=== PATIENT | male | born 1935 | race Caucasian/White ===

== ENCOUNTER 2022-01-16 16:14 | Inpatient (IN) | payer MEDICARE, SELFPAY ==
[2022-01-16] VITALS (48 sets, daily range): BP systolic 130–178; BP diastolic 59–108; PULSE 70–100; RESP 17–30; TEMP 36.4–36.6; O2SAT 83–100
--- NOTE | 2022-01-16 16:30 | RT.EKG_ITS ---
APPROVED REPORT Exam: Resting ECG Reason for Exam: weakness Patient Location: E HR:80 bpm ECG Measurements Heart Rate 80 AXIS OK 264 P 43 QRSd 152 QRS 66 QT 456 T 5 QTc 526 Conclusion Sinus rhythm...normal P axis, V-rate 60- 99 Paired ventricular premature complexes...sequence of 2 V complexes Prolonged OK interval...OK >220, V-rate 50- 90 Right bundle branch block...QRSd>120, terminal axis(90,270)
--- NOTE | 2022-01-16 16:30 | DI.CT_ITS ---
Exam(s) CT HEAD CERVICAL SPINE WO EXAM: CT HEAD CERVICAL SPINE WO CLINICAL HISTORY: fall, [place], anticoag. TECHNIQUE: Imaging Protocol: Axial computed tomography images with coronal and sagittal reformatted images were created and reviewed COMPARISON: No exams were available for comparison FINDINGS: CT Head: Ventricles and Extra axial spaces: There is cerebral atrophy more prominent in the frontal and tempor al lobes. There is mild enlargement of the ventricles. Hemorrhage: None. Cerebral parenchyma: No acute territorial infarct is present. There are areas of decreased attenuati on in the white matter consistent with small vessel ischemic disease. Midline shift: None. Brainstem/Cerebellum: Normal. Calvarium: Normal. Visualized Paranasal sinuses/Mastoids: Clear. Soft Tissues: Unremarkable. CT Cervical Spine: Bones: No acute fracture or subluxation. Cervical spondylosis. There does appear to be a chronic el earing depression of the superior endplate of T1. If there is continued clinical concern an MRI may be obtained. Soft Tissues: There is an markedly enlarged right lobe of the thyroid gland which displaces the trach ea to the left. It is incompletely imaged on this examination but measures at least 7.5 x 5 x 7 cm. Lung Apices: Clear. IMPRESSION: 1. No acute intracranial process. 2. No definite acute fracture or subluxation in the cervical spine. 3. Marked enlargement of the right lobe of the thyroid gland. Nonemergent ultrasound should be consi dered for further evaluation. 4. Mild depression of the superior endplate of T1 which appears chronic. If symptomatic, MRI can be performed for further characterization. RADIATION DOSE DELIVERED: 1,558.77mGy.cm Total DLP DATA REPOSITORY: All CT scans at this facility are submitted to the National Radiology Data Registry (NRDR) Dose Index Registry (DIR) with the [employer] (ACR). RADIATION OPTIMIZATION: All CT scans at this facility use at least one of these dose optimization te chniques: automated exposure control; mA and/or kV adjustment per patient size (includes targeted exa ms where dose is matched to clinical indication); or iterative reconstruction.
[2022-01-16 16:48] LABS: Abs Immature Grans 0.04 10^3/uL (0.0-0.06); Absolute Basophil Count 0.03 10^3/uL (0.0-0.2); Absolute Eosinophil Count 0.28 10^3/uL (0.0-0.7); Absolute Lymphocyte Count 0.98 10^3/uL (1.2-3.4); Absolute Monocyte Count 0.46 10^3/uL (0.1-0.8); Absolute Neutrophil Count 3.71 10^3/uL (1.2-6.7); Basophils % 0.5; Eosinophils % 5.1; HCT 35.3 % (40.0-50.0); HGB 10.6 g/dL (13.5-17.5); Immature Grans % 0.7; Lymphocytes % 17.8; MCH 29.5 pg (27.0-33.0); MCV 98 fL (80-95); MPV 11.9 fL (8.0-11.0); Monocytes % 8.4; Neutrophils % 67.5; Platelet Count 128 10^3/uL (130-400); RBC 3.59 10^6/uL (4.36-5.78); RDW 14.3 % (11.8-14.1); RDW-SD 51.8 fL
--- NOTE | 2022-01-16 17:06 | DI.CT_ITS ---
Exam(s) CT CHEST/ABD/PEL W CT THORACIC LUMBAR SPINE REC EXAM: CT CHEST/ABD/PEL W and CT thoracic and lumbar spine recons CLINICAL HISTORY: fall, right flank and ruq pain, right thoracic dieter TECHNIQUE: Imaging Protocol: Axial computed tomography images with coronal and sagittal reformatted images were created and reviewed CONTRAST MATERIAL: Intravenous: Omnipaque 350 contrast volume:100 mL Oral: No COMPARISON: CT CT THORACIC LUMBAR SPINE REC from 01/16/2022 FINDINGS: The examination is limited due to patient motion artifact. CHEST: Tracheobronchial tree: Patent where visualized. Pulmonary parenchyma: No consolidation or dominant measurable mass. Emphysematous changes are seen in the lungs. Dependent atelectatic changes are seen in the lungs. Visualized thyroid gland: There is a large heterogeneous mass in the right lobe of the thyroid gland measuring at least 7.1 cm transverse by 5.5 cm AP by 5 cm craniocaudad. The most superior aspect of the mass is not included on this examination. It displaces the trachea and esophagus to the left. Mediastinum and Cyn: No dominant adenopathy or fluid collection. The esophagus is unremarkable. Pleura: No effusion or pneumothorax. Heart: Cardiomegaly. Mild coronary artery calcification. No pericardial effusion. Pulmonary arteries: The pulmonary arteries are not adequately opacified for evaluation of pulmonary e mboli. Aorta: Thoracic aorta non-dilated. Atherosclerosis is present. Lymph nodes: Within normal limits. Soft tissues: Gynecomastia is present. Bones:There are acute mildly displaced fractures in the anterior aspect of the right 3rd and 4th ribs . There are subacute healing T9 through T12 right rib fractures. There appears to be a lucency in t he left 5th rib laterally. There is an old healed sternal fracture. CT thoracic spine recons: There are chronic appearing compression deformities of T7, T8 and T11. Age -appropriate degenerative changes are seen throughout the thoracic spine. ABDOMEN: Liver: Normal density. No measurable mass. Portal, Superior Mesenteric, and Splenic Veins: Unremarkable. Gallbladder and Biliary Tract: Status post cholecystectomy. No significant biliary ductal dilatation . Pancreas: Fatty atrophy of the pancreas. Spleen: Normal. Adrenals: No masses seen. Kidneys: Normal size, contour and axis. No radiodense stones or obstructive uropathy. Multiple bilate ral renal cysts. No follow-up is recommended. Abdominal Aorta: Abdominal portion non-dilated. Atherosclerosis is present. Bowel: No obstruction or bowel wall thickening. No evidence of appendicitis. There is diverticulosis seen in the colon, but no evidence of acute diverticulitis. Peritoneal Cavity: No ascites, collection or mesenteric inflammatory response. No free air. Lymph Nodes: There is enlarged 2.6 x 2.3 cm left periaortic cystic structure. Bones: There are bilateral total hip replacements. There are old healed right superior and inferior pubic rami fractures. There is an old healed right iliac fracture. Soft Tissues: Unremarkable. Lumbar spine CT recons: There is an old healed compression fracture of L1. The bones are osteopenic. Degenerative changes are seen in the lumbar spine appropriate for the patient's age. No acute frac ture or subluxation is seen in the lumbar spine. PELVIS: Bladder: The urinary bladder is incompletely visualized due to artifact from the patient's orthopedic hardware. Calcifications are seen in the dependent portion of the bladder suggesting bladder stones . Reproductive Organs: The prostate gland is enlarged. Lymph Nodes: Within normal limits. Bones: Within normal limits. IMPRESSION: 1. There are acute fractures involving the anterior aspects of the right 3rd and 4th ribs. 2. Subacute and chronic fractures involving right ribs, sternum and vertebral bodies. 3. No definite acute fracture involving the thoracic spine. If there is concern for acute exacerbati on of these fractures, an MRI may be useful for further characterization. 4. No acute abdominal or pelvic organ injury. 5. Chronic fractures involving the sacrum and pelvis. 6. Subacute to chronic L1 compression fracture deformity. If there is concern, an MRI may be useful for further characterization. 7. Complex right thyroid mass. Nonemergent thyroid ultrasound may be obtained for further evaluation. 8. 2.6 x 2.3 cm cystic structure in the left periaortic region. This is nonspecific. MRI may be usefu l for further evaluation. 9. There are unexpected findings on this examination. Unexpected findings RADIATION DOSE DELIVERED: 1381.25 mGy.cm Total DLP DATA REPOSITORY: All CT scans at this facility are submitted to the National Radiology Data Registry (NRDR) Dose Index Registry (DIR) with the [employer] (ACR). RADIATION OPTIMIZATION: All CT scans at this facility use at least one of these dose optimization te chniques: automated exposure control; mA and/or kV adjustment per patient size (includes targeted exa ms where dose is matched to clinical indication); or iterative reconstruction.
[2022-01-16 17:10] LABS: ALT 14 U/L (16-63); AST 11 U/L (15-37); Alkaline Phosphatase 77 U/L (46-116); Anion Gap 5.2 mmol/L (3-11); BUN 23 mg/dL (7-18); Bilirubin, Total 0.9 mg/dL (0.2-1.0); CO2 31.8 mmol/L (21.0-32.0); Calcium 8.9 mg/dL (8.5-10.1); Chloride 107 mmol/L (98-107); Glucose 102 mg/dL (74-106); Magnesium 1.7 mg/dL (1.8-2.4); Potassium 4.6 mmol/L (3.5-5.1); Sodium 144 mmol/L (136-145); Total Protein 7.1 g/dL (6.4-8.2)
--- NOTE | 2022-01-16 17:46 | DI.VRAD_ITS ---
PROCEDURE INFORMATION: Exam: CT Head Without Contrast Exam date and time: 01/16/2022 5:20 PM Age: 86 years old Clinical indication: Injury or trauma; Other: Trauma, fall, headache, eliquis TECHNIQUE: Imaging protocol: Computed tomography of the head without contrast. COMPARISON: No relevant prior studies available. FINDINGS: Brain: No acute intracranial hemorrhage, edema, midline shift, or mass effect. No CT evidence of acute transcortical infarction. There is cerebral and cerebellar volume loss, which is asymmetrically prominent at the frontal and temporal lobes. In addition, there is prominence of the sulci at the level of the sylvian fissures, with crowding of the sulci at the vertex. Cerebral ventricles: Mild ventriculomegaly, which is likely concordant with the patient's degree of volume loss. Narrow callosal angle measuring 66 degrees. Paranasal sinuses: Visualized sinuses are unremarkable. No fluid levels. Mastoid air cells: Visualized mastoid air cells are well aerated. Bones/joints: Unremarkable. No acute fracture. Soft tissues: Unremarkable. IMPRESSION: 1. No acute intracranial abnormality is appreciated. 2. Morphologic changes of the brain are nonspecific, however suggest elements of frontotemporal dementia and normal pressure hydrocephalus. Correlate with clinical and laboratory findings. PROCEDURE INFORMATION: Exam: CT Cervical Spine Without Contrast Exam date and time: 01/16/2022 5:20 PM Age: 86 years old Clinical indication: Injury or trauma; Other: Trauma, fall, headache, eliquis TECHNIQUE: Imaging protocol: Computed tomography of the cervical spine without contrast. COMPARISON: No relevant prior studies available. FINDINGS: Bones/joints: No acute cervical spine fracture. Minimal retrolisthesis of C3 on C4. There is a mild superior endplate deformity at T1 which appears chronic by morphology. No aggressive osseous lesion is identified. Multilevel degenerative changes of the cervical spine, without gross high-grade spinal canal stenosis appreciated. Bony neural foraminal narrowing is greatest at C6-C7. Lungs: There is likely some degree of emphysema at the lung apices. Thyroid: There is massive enlargement of the right thyroid, which is incompletely evaluated but measures at least 7.7 x 5.5 x 7.2 cm. This results in tracheal deviation and esophageal deviation to the left. Vasculature: Scattered vascular calcifications are appreciated. Soft tissues: Unremarkable. IMPRESSION: 1. No acute cervical spine fracture. 2. Degenerative changes of the cervical spine, including retrolisthesis of C3. No gross high-grade spinal canal stenosis is appreciated. 3. Superior endplate deformity at T1 appears chronic. If symptomatic, MRI could be performed for further characterization. 4. Massive enlargement of the right thyroid. Correlate with clinical and laboratory findings. Nonemergent ultrasound may be of benefit for further characterization. Dictated and Authenticated by: Master Sutton MD. Ordering:LISET Snyder MD
[2022-01-16] MEDS: Omnipaque 350 MG/ML 100 ML BTL IJ (17:50)
[2022-01-16] MEDS: Normal Saline Flush 10 ML SYR IVP (17:51)
--- NOTE | 2022-01-16 18:10 | DI.VRAD_ITS ---
PROCEDURE INFORMATION: Exam: CT Thoracic Spine Without Contrast Exam date and time: 01/16/2022 5:26 PM Age: 86 years old Clinical indication: Injury or trauma; Blunt trauma (contusions or hematomas); Other: Fall, right flank and ruq pain, right thoracic dieter TECHNIQUE: Imaging protocol: Computed tomography of the thoracic spine without contrast. COMPARISON: CT HEAD CERVICAL SPINE WO 01/16/2022 5:20 PM FINDINGS: Bones/joints: Generalized osteopenia. Superior endplate deformity at T1 is better seen on the CT cervical spine, dictated separately. There is additionally anterior wedging with superior endplate defect at T7, T8, and T11, of unclear chronicity but suspected to be subacute to chronic. Additional endplate deformities of the thoracic spine likely represent endplate Schmorl's nodes. No definite acute fracture is identified. No aggressive osseous lesion is appreciated. To the extent evaluated, there is no gross high-grade spinal canal stenosis or neural foraminal narrowing. Soft tissues: See the CT chest, dictated separately. IMPRESSION: Endplate deformities at T1, T7, T8, and T11 are consistent with fractures, however appear to be subacute to chronic. The possibility of acute exacerbation is not excluded, and if symptomatic MRI may be of benefit for further characterization. PROCEDURE INFORMATION: Exam: CT Lumbar Spine Without Contrast Exam date and time: 01/16/2022 5:26 PM Age: 86 years old Clinical indication: Injury or trauma; Blunt trauma (contusions or hematomas); Other: Fall, right flank and ruq pain, right thoracic dieter TECHNIQUE: Imaging protocol: Computed tomography of the lumbar spine without contrast. COMPARISON: No relevant prior studies available. FINDINGS: Bones/joints: Vestigial rib on the left at L1. Unilateral left spondylolysis at L5. There is a biconcave deformity at the L1 level resulting in approximately 75% loss of vertebral body height centrally, of unclear chronicity. There is generalized osteopenia. Note is made of ankylosis and bridging osteophytes of the sacroiliac joints, with significant deformity of the right iliac bone that is most likely subacute to chronic. Scattered sclerotic changes of the right sacrum are likely related to chronic insufficiency fractures. To the extent evaluated, no gross high-grade spinal canal stenosis. Soft tissues: See the CT abdomen and pelvis, dictated separately. IMPRESSION: 1. Biconcave deformity at L1 with 75% loss of vertebral body height, of unclear chronicity but favored to be subacute to chronic. If symptomatic, MRI may be of benefit for further characterization. 2. Subacute to chronic fractures of the right sacrum and right iliac bone. Correlate with prior imaging, if available. 3. 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 Dictated and Authenticated by: Master Sutton MD. Ordering:LISET Snyder MD
--- NOTE | 2022-01-16 18:24 | DI.VRAD_ITS ---
PROCEDURE INFORMATION: Exam: CT Chest With Contrast; Diagnostic Exam date and time: 01/16/2022 5:26 PM Age: 86 years old Clinical indication: Injury or trauma; Blunt; Other: Fall, right flank and ruq pain, right thoracic dieter TECHNIQUE: Imaging protocol: Diagnostic computed tomography of the chest with contrast. Contrast material: OMNIPAQUE 350; Contrast volume: 100 ml; Contrast route: INTRAVENOUS (IV); COMPARISON: CT HEAD CERVICAL SPINE WO 01/16/2022 5:20 PM FINDINGS: Thyroid: Heterogeneous mass of the right thyroid is incompletely evaluated, deviating the trachea and esophagus to the left at the thoracic inlet. Lungs: Predominantly centrilobular emphysema of the upper lungs. There is interstitial prominence at the periphery of the tsoir-oxijhqe-xems-left lung. Pleural spaces: Unremarkable. No pneumothorax. No pleural effusion. Heart: Mild coronary artery calcification. Lymph nodes: Mild right mediastinal and hilar lymphadenopathy. Vasculature: Mild atherosclerosis of the thoracic aorta. No aneurysm. Bones/joints: Mildly displaced acute anterior right 3rd and 4th rib fractures. Subacute fractures of the right 8th through 11th ribs. Chronic healed sternal fracture. See the thoracic spine CT for evaluation of the vertebral bodies. Soft tissues: Gynecomastia. IMPRESSION: 1. Acute right anterior 3rd and 4th rib fractures. Multiple subacute to chronic fractures of the right ribs, sternum, and vertebral bodies. 2. Emphysema with interstitial prominence at the periphery of the qrsqp-[id number]-ntez-left lungs, nonspecific. This may be related to chronic interstitial lung disease. 3. Mass of the right thyroid. Further evaluation with nonemergent ultrasound is recommended. PROCEDURE INFORMATION: Exam: CT Abdomen And Pelvis With Contrast Exam date and time: 01/16/2022 5:26 PM Age: 86 years old Clinical indication: Injury or trauma; Blunt; Other: Fall, right flank and ruq pain, right thoracic dieter TECHNIQUE: Imaging protocol: Computed tomography of the abdomen and pelvis with contrast. Contrast material: OMNIPAQUE 350; Contrast volume: 100 ml; Contrast route: INTRAVENOUS (IV); COMPARISON: No relevant prior studies available. FINDINGS: Liver: Normal. No mass. Gallbladder and bile ducts: Status post cholecystectomy. Pancreas: Fatty replacement of the pancreas. Spleen: Normal. No splenomegaly. Adrenal glands: Bilateral adrenal hypertrophy. Kidneys and ureters: Multiple bilateral renal cortical cysts measuring less than 20 Hounsfield units or too small to accurately characterize. Stomach and bowel: Diverticulosis of the colon, without evidence of acute diverticulitis. Appendix: An appendix is not clearly identified. Intraperitoneal space: Unremarkable. No free air. No significant fluid collection. Vasculature: Cystic structure of the left retroperitoneal space at the level of the renal vein measuring 2.0 x 2.3 cm (series 8, image 630). Scattered arterial calcifications are appreciated. No aneurysm. Lymph nodes: Unremarkable. No enlarged lymph nodes. Urinary bladder: Urinary bladder calcification measures up to 2.0 x 1.2 cm. Reproductive: Unremarkable as visualized. Bones/joints: See the lumbar spine CT for evaluation of the lumbar spine. Again noted are likely subacute fractures of the right sacrum and iliac bone, as well as changes of bilateral hip replacement surgery. Subacute to chronic fracture of the right superior and inferior pubic rami. Soft tissues: Unremarkable. IMPRESSION: 1. Cystic structure of the left retroperitoneal space at the level of the renal vein measuring up to 2.3 cm. The etiology is not clear from the current examination. Further evaluation with unenhanced and contrast enhanced MRI is recommended for further characterization. 2. Subacute to chronic fractures of the right sacrum and pelvis, correlate with the patient's history. 3. Urinary bladder calculus measuring up to 2.0 cm. Dictated and Authenticated by: Master Sutton MD. Ordering:LISET Snyder MD
[2022-01-16 18:38] LABS: C Diff PCR Negative (Negative)
[2022-01-16] MEDS: fentaNYL 100 MCG/2 ML VIAL 50 MCG IVP (19:20)
--- NOTE | 2022-01-16 20:11 | SCONE_ITS ---
[facility] All Active Problems (Updated 10/26/20 @ 13:19 by Yoly Adame RN) History of knee replacement (Chronic) History of right hip replacement (Acute) Urinary frequency (Acute) Cervical vertebral fracture (Acute) s/p fall 01/17/17 Chronic renal insufficiency (Acute) Osteoarthritis (Chronic) Insomnia (Acute) Migraine headache (Chronic) Depression (Chronic) Hyperlipidemia (Acute) IBS (irritable bowel syndrome) (Chronic) Esophageal reflux (Chronic) Anxiety (Chronic) Restless leg syndrome (Acute) Anemia (Chronic) Hypertension (Chronic) DJD (degenerative joint disease) (Chronic) Kidney stones (Chronic) Sensorineural hearing loss (SNHL) of both ears (Acute) Ear itching (Acute) 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) Otorrhea of both ears (Acute 11/03/13) Otitis externa (Acute 11/03/13) Otalgia (Acute 11/18/13) 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, 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) Family History (Updated 10/26/20 @ 13:21 by Yoly Adame RN) Father Stroke Mother Stroke Hypertension Pneumonia Sister Breast cancer Social History (Updated 10/26/20 @ 13:22 by Yoly Adame RN) Smoking/Tobacco Use Status: Former Tobacco Use Quit Date: 03/23/1962 Smoking risk assessment performed?: Yes Alcohol Intake: current Alcohol Intake frequency: holidays/special occasions only Drug use: Never Household members: spouse 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 What is your relationship status?: Panel score (0-1 are the most socially isolated patients): 1 Do you feel safe at home: Yes Do you feel safe in your relationship?: Yes Results Last Vital Signs Temp 36.6 C 01/16/22 16:18 Pulse 89 01/16/22 16:18 Resp 19 01/16/22 16:18 BP 163/86 H 01/16/22 16:18 Pulse Ox 98 01/16/22 16:18 Labs Result diagrams: 01/16/22 16:30 01/16/22 16:30 Labs: Laboratory Results - last 24 hr 01/16/22 01/16/22 01/16/22 16:30 16:30 16:30 WBC 5.50 RBC 3.59 L Hgb 10.6 L Hct 35.3 L MCV 98 H MCH 29.5 MCHC 30.0 L RDW 14.3 H Plt Count 128 L MPV 11.9 H Immature Gran % 0.7 Neutrophils % 67.5 Lymphocytes % 17.8 Monocytes % 8.4 Eosinophils % 5.1 Basophils % 0.5 Nucleated RBC % 0.0 Absolute Neutrophils 3.71 Absolute Lymphocytes 0.98 L Absolute Monocytes 0.46 Absolute Eosinophils 0.28 Absolute Basophils 0.03 Sodium 144 Potassium 4.6 Chloride 107 Carbon Dioxide 31.8 Anion Gap 5.2 BUN 23 H Creatinine 2.0 H Est GFR (CKD-EPI 2020) 32.10 Glucose 102 Calcium 8.9 Magnesium 1.7 L Total Bilirubin 0.9 AST 11 L ALT 14 L Alkaline Phosphatase 77 Total Protein 7.1 Albumin 4.0 TSH 1.30 Stl C.difficile Tox PCR 01/16/22 17:00 WBC RBC Hgb Hct MCV MCH MCHC RDW Plt Count MPV Immature Gran % Neutrophils % Lymphocytes % Monocytes % Eosinophils % Basophils % Nucleated RBC % Absolute Neutrophils Absolute Lymphocytes Absolute Monocytes Absolute Eosinophils Absolute Basophils Sodium Potassium Chloride Carbon Dioxide Anion Gap BUN Creatinine Est GFR (CKD-EPI 2020) Glucose Calcium Magnesium Total Bilirubin AST ALT Alkaline Phosphatase Total Protein Albumin TSH Stl C.difficile Tox PCR Negative
--- NOTE | 2022-01-16 20:53 | HPE_ITS ---
Date of service: 01/16/22 Time of Service: 20:54 Assessment and Plan Assessment and plan (1) COVID-19: Start date: 01/16/22 Status: Acute Assessment and plan: Patient was found to have COVID-positive test upon admission but has no respiratory symptoms. This may be causing his generalized weakness and he will be placed on renal dose packs lipid. Pharmacy needs to review medication list for home meds which may need adjustment while on Paxil bed. Respiratory isolation in negative pressure room to avoid infectivity.Observe for worsening hypoxemia with patient on home oxygen at baseline. (2) Closed rib fracture: Start date: 01/16/22 Status: Acute Assessment and plan: Multiple rib fractures anteriorly with patient having no complications with close fractures and no evidence of significant displacement. PT and OT to evaluate. Pain control with oxycodone. (3) Multiple falls: Status: Chronic Assessment and plan: Evidence of multiple falls in the past and now acute increase falling possibly secondary to weakness with acute COVID infection. PT and OT to evaluate for safety with ambulation using's safety devices such as walker which patient states he does use at home chronically. He may not be safe for home at this time and after hospitalization consider increase home services versus placement for rehabilitation. Patient may have increased instability with his medical regimen if taking all the medicines that are listed on his home medication list such as a large dose of trazodone at night and alprazolam 3 times daily. (4) Vertebral compression fracture: Status: Chronic Assessment and plan: These appear to be subacute and may be contributing to patient's instability and discomfort with ambulation but not the primary source of his pain at this time. (5) Dementia: Status: Chronic Assessment and plan: Patient is not on medical therapy for dementia and needs to be assessed for safety at home with his . He appears to confabulate well with compensation of his memory deficits. He is hard of hearing which adds to communication problems. History of Present Illness History of Present Illness Chief Complaint: Multiple falls with fractured ribs Narrative: This is an 86-year-old male patient who was brought to the ED after falling while out to eat [place]ian food in [place] grabbing onto his pulled her down with him with her sustaining injury but being imaged and sent home. The patient was found to have multiple rib fractures over his right ribs with old rib fractures trying to heal and vertebral fractures which appeared subacute or chronic. He also had fractures over his pelvic region which did not appear acute. He is status post hip fracture and repair on the left by history having both hips operated on in the past. 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 He was found to be COVID-positive upon testing for admission though he had no respiratory symptoms, fever or hypoxemia. He was admitted for pain management and PT and OT as well as reevaluation of safety at home. Surgery was consulted during the ED visit but there were no surgical problems at this time. Patient was stable at the time I examined him lying in bed and had minimal complaints of pain if he did not move. He had no respiratory complaints as mentioned. Because of his age and not having symptoms of COVID, Paxil with renal dosing will be considered. He will be placed in isolation for infectivity while in the hospital. He is a DNR/DNI. Review of Systems Narrative: 13 point review of systems otherwise unrevealing or stable with patient being a poor historian with compensated dementia. PFSH All Active Problems (Updated 01/17/22 @ 19:07 by Jaylen Delacruz) Multiple rib fractures (Acute) Discharge planning issues (Acute) DVT prophylaxis (Acute) Musculoskeletal pain of right upper extremity (Acute) Chronic respiratory failure with hypoxia (Chronic) Dementia (Chronic) Vertebral compression fracture (Chronic) Closed rib fracture (Acute) Multiple falls (Chronic) COVID-19 (Acute) History of knee replacement (Chronic) History of right hip replacement (Acute) Urinary frequency (Acute) Chronic renal insufficiency (Acute) Osteoarthritis (Chronic) Insomnia (Acute) Migraine headache (Chronic) Depression (Chronic) Hyperlipidemia (Acute) IBS (irritable bowel syndrome) (Chronic) Esophageal reflux (Chronic) Anxiety (Chronic) Restless leg syndrome (Acute) Anemia (Chronic) Hypertension (Chronic) DJD (degenerative joint disease) (Chronic) Kidney stones (Chronic) Sensorineural hearing loss (SNHL) of both ears (Acute) Ear itching (Acute) 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) Otorrhea of both ears (Acute 11/03/13) Otitis externa (Acute 11/03/13) Otalgia (Acute 11/18/13) 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, 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) Medical History Cervical vertebral fracture s/p fall 01/17/17 Family History Father Stroke Mother Stroke Hypertension Pneumonia Sister Breast cancer Social History Smoking/Tobacco Use Status: Former Tobacco Use Quit Date: 03/23/1962 Smoking risk assessment performed?: Yes Alcohol Intake: current Alcohol Intake frequency: holidays/special occasions only Drug use: Never Household members: spouse 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 What is your relationship status?: Panel score (0-1 are the most socially isolated patients): 1 Do you feel safe at home: Yes Do you feel safe in your relationship?: Yes Meds Allergies and Home Medications Allergies Allergy/AdvReac Type Severity Reaction Status Date / Time hydromorphone [From Dilaudid] Allergy Verified 01/16/22 16:20 promethazine [From Phenergan] Allergy Verified 01/16/22 16:20 Home Medications Medication Instructions Recorded Confirmed Type acetaminophen 650 mg 650 mg PO Q12H 10/26/20 History tablet,extended release acetic acid 2 % ear solution 3 drp otic (ear) TID 10/26/20 History alprazolam 0.5 mg tablet 0.5 mg PO TID 10/26/20 History gabapentin 400 mg capsule 400 mg PO DAILY 10/26/20 History lansoprazole 30 mg capsule,delayed 30 mg PO DAILY 10/26/20 History release loperamide-simethicone 2 mg-125 mg 1 tab PO Q3H PRN 10/26/20 History tablet mometasone 0.1 % topical cream 1 applic topical DAILY PRN itching 10/26/20 History multivitamin 1 tab PO DAILY 10/26/20 History peg 400-propylene glycol (PF) 0.4 1 drp ophthalmic (eye) BID-QID PRN 10/26/20 History %-0.3 % eye drops in a dropperette (Systane (PF)) sertraline 100 mg tablet 100 mg PO DAILY 10/26/20 History tamsulosin 0.4 mg capsule (Flomax) 0.4 mg PO DAILY 10/26/20 History trazodone 100 mg tablet 200 mg PO QHS PRN 10/26/20 History Exam Narrative Exam Narrative: General: Patient appears appropriate for age, pleasantly confused and in no acute distress when lying in bed and not moving. When he moves he does have right chest wall pain. He is alert and oriented to place and person but not to time or purpose. HEENT: Normocephalic, eyes with pupils equal and react to light symmetrically, extraocular movement intact and sclera anicteric. Oropharynx with dry mucosa. Neck: Supple without JVD. Back: Patient is difficult to sit up therefore was not moved from his supine position with ER physician, and the patient did have some point tenderness over his thoracic spine. Chest: Tender to palpation of the right anterior ribs in the region of the acute fractures by imaging. No crepitus and no bruising. Nontender over the sternum. Lungs: Fair aeration with bronchovesicular breath sound diffusely and no focalizing rales or rhonchi listen to the anterior chest. Heart: Regular rate and rhythm with no murmurs or gallops appreciated. Abdomen: Slightly obese contour, soft and nontender to palpation with no palpable hepatosplenomegaly. Bowel sounds positive in all quadrants. Genitalia/rectal: Exam deferred. Ng catheter was placed by surgeon. Extremities: Without clubbing, cyanosis or pitting edema with fair capillary r efill. Osteoarthritic changes of most joints. Well-healed scars over both hips. No tenderness to compression of pelvic girdle. Peripheral pulses decreased but intact. Skin: Pale, warm and dry. Neuro: Cranial nerves II through XII gross intact, no focal motor deficits. Patient is hard of hearing. Psych: Normal affect and mood with patient being poor historian. No abnormal thought processes. Remote memory grossly intact and recent memory less intact. He does remember going out to eat [place]ian food. Results Imaging Imaging Studies: Exam: CT Thoracic Spine Without Contrast Exam date and time: 01/16/2022 5:26 PM Age: 86 years old Clinical indication: Injury or trauma; Blunt trauma (contusions or hematomas); Other: Fall, right flank and ruq pain, right thoracic dieter TECHNIQUE: Imaging protocol: Computed tomography of the thoracic spine without contrast. COMPARISON: CT HEAD CERVICAL SPINE WO 01/16/2022 5:20 PM FINDINGS: Bones/joints: Generalized osteopenia. Superior endplate deformity at T1 is better seen on the CT cervical spine, dictated separately. There is additionally anterior wedging with superior endplate defect at T7, T8, and T11, of unclear chronicity but suspected to be subacute to chronic. Additional endplate deformities of the thoracic spine likely represent endplate Schmorl's nodes. No definite acute fracture is identified. No aggressive osseous lesion is appreciated. To the extent evaluated, there is no gross high-grade spinal canal stenosis or neural foraminal narrowing. Soft tissues: See the CT chest, dictated separately. IMPRESSION: Endplate deformities at T1, T7, T8, and T11 are consistent with fractures, however appear to be subacute to chronic. The possibility of acute exacerbation is not excluded, and if symptomatic MRI may be of benefit for further characterization. PROCEDURE INFORMATION: Exam: CT Lumbar Spine Without Contrast Exam date and time: 01/16/2022 5:26 PM Age: 86 years old Clinical indication: Injury or trauma; Blunt trauma (contusions or hematomas); Other: Fall, right flank and ruq pain, right thoracic dieter TECHNIQUE: Imaging protocol: Computed tomography of the lumbar spine without contrast. COMPARISON: No relevant prior studies available. FINDINGS: Bones/joints: Vestigial rib on the left at L1. Unilateral left spondylolysis at L5. There is a biconcave deformity at the L1 level resulting in approximately 75% loss of vertebral body height centrally, of unclear chronicity. There is generalized osteopenia. Note is made of ankylosis and bridging osteophytes of the sacroiliac joints, with significant deformity of the right iliac bone that is most likely subacute to chronic. Scattered sclerotic changes of the right sacrum are likely related to chronic insufficiency fractures. To the extent evaluated, no gross high-grade spinal canal stenosis. Soft tissues: See the CT abdomen and pelvis, dictated separately. IMPRESSION: 1. Biconcave deformity at L1 with 75% loss of vertebral body height, of unclear chronicity but favored to be subacute to chronic. If symptomatic, MRI may be of benefit for further characterization. 2. Subacute to chronic fractures of the right sacrum and right iliac bone. Correlate with prior imaging, if available. 3. 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 Exam: CT Chest With Contrast; Diagnostic Exam date and time: 01/16/2022 5:26 PM Age: 86 years old Clinical indication: Injury or trauma; Blunt; Other: Fall, right flank and ruq pain, right thoracic dieter TECHNIQUE: Imaging protocol: Diagnostic computed tomography of the chest with contrast. Contrast material: OMNIPAQUE 350; Contrast volume: 100 ml; Contrast route: INTRAVENOUS (IV);? COMPARISON: CT HEAD CERVICAL SPINE WO 01/16/2022 5:20 PM FINDINGS: Thyroid: Heterogeneous mass of the right thyroid is incompletely evaluated, deviating the trachea and esophagus to the left at the thoracic inlet. Lungs: Predominantly centrilobular emphysema of the upper lungs. There is interstitial prominence at the periphery of the urest-utbqigg-qadb-left lung. Pleural spaces: Unremarkable. No pneumothorax. No pleural effusion. Heart: Mild coronary artery calcification. Lymph nodes: Mild right mediastinal and hilar lymphadenopathy. Vasculature: Mild atherosclerosis of the thoracic aorta. No aneurysm. Bones/joints: Mildly displaced acute anterior right 3rd and 4th rib fractures. Subacute fractures of the right 8th through 11th ribs. Chronic healed sternal fracture. See the thoracic spine CT for evaluation of the vertebral bodies. Soft tissues: Gynecomastia. IMPRESSION: 1. Acute right anterior 3rd and 4th rib fractures. Multiple subacute to chronic fractures of the right ribs, sternum, and vertebral bodies. 2. Emphysema with interstitial prominence at the periphery of the aunas-pzcsqkj-qbqv-left lungs, nonspecific. This may be related to chronic interstitial lung disease. 3. Mass of the right thyroid. Further evaluation with nonemergent ultrasound is recommended. PROCEDURE INFORMATION: Exam: CT Abdomen And Pelvis With Contrast Exam date and time: 01/16/2022 5:26 PM Age: 86 years old Clinical indication: Injury or trauma; Blunt; Other: Fall, right flank and ruq pain, right thoracic dieter TECHNIQUE: Imaging protocol: Computed tomography of the abdomen and pelvis with contrast. Contrast material: OMNIPAQUE 350; Contrast volume: 100 ml; Contrast route: INTRAVENOUS (IV);? COMPARISON: No relevant prior studies available. FINDINGS: Liver: Normal. No mass. Gallbladder and bile ducts: Status post cholecystectomy. Pancreas: Fatty replacement of the pancreas. Spleen: Normal. No splenomegaly. Adrenal glands: Bilateral adrenal hypertrophy. Kidneys and ureters: Multiple bilateral renal cortical cysts measuring less than 20 Hounsfield units or too small to accurately characterize. Stomach and bowel: Diverticulosis of the colon, without evidence of acute diverticulitis. Appendix: An appendix is not clearly identified. Intraperitoneal space: Unremarkable. No free air. No significant fluid collection. Vasculature: Cystic structure of the left retroperitoneal space at the level of the renal vein measuring 2.0 x 2.3 cm (series 8, image 630). Scattered arterial calcifications are appreciated. No aneurysm. Lymph nodes: Unremarkable. No enlarged lymph nodes. Urinary bladder: Urinary bladder calcification measures up to 2.0 x 1.2 cm. Reproductive: Unremarkable as visualized. Bones/joints: See the lumbar spine CT for evaluation of the lumbar spine. Again noted are likely subacute fractures of the right sacrum and iliac bone, as well as changes of bilateral hip replacement surgery. Subacute to chronic fracture of the right superior and inferior pubic rami. Soft tissues: Unremarkable. IMPRESSION: 1. Cystic structure of the left retroperitoneal space at the level of the renal vein measuring up to 2.3 cm. The etiology is not clear from the current examination. Further evaluation with unenhanced and contrast enhanced MRI is recommended for further characterization. 2. Subacute to chronic fractures of the right sacrum and pelvis, correlate with the patient's history. 3. Urinary bladder calculus measuring up to 2.[address] HEAD ? CERVICAL SPINE WO EXAM: ? CT HEAD ? CERVICAL SPINE WO CLINICAL HISTORY: ? fall, [place], anticoag. ? TECHNIQUE:? Imaging Protocol: Axial computed tomography images with coronal and sagittal reformatted images were created and reviewed COMPARISON:? No exams were available for comparison FINDINGS: Ventricles and Extra axial spaces: There is cerebral atrophy more prominent in the frontal and temporal lobes.? There is mild enlargement of the ventricles.? Hemorrhage: None. Cerebral parenchyma: No acute territorial infarct is present.? There are areas of decreased attenuation in the white matter consistent with small vessel ischemic disease.? Midline shift: None. Brainstem/Cerebellum: Normal. Calvarium: Normal. Visualized Paranasal sinuses/Mastoids: Clear. Soft Tissues: Unremarkable. CT Cervical Spine: Bones: No acute fracture or subluxation. Cervical spondylosis.? There does appear to be a chronic appearing depression of the superior endplate of T1.? If there is continued clinical concern an MRI may be obtained. Soft Tissues: There is an markedly enlarged right lobe of the thyroid gland which displaces the trachea to the left.? It is incompletely imaged on this examination but measures at least 7.5 x 5 x 7 cm. Lung Apices: Clear. IMPRESSION: 1. No acute intracranial process.? 2. No definite acute fracture or subluxation in the cervical spine. 3. Marked enlargement of the right lobe of the thyroid gland.? Nonemergent ultrasound should be considered for further evaluation. 4. Mild depression of the superior endplate of T1 which appears chronic.? If symptomatic, MRI can be performed for further characterization. IMPRESSION: 1. No acute intracranial abnormality is appreciated. 2. Morphologic changes of the brain are nonspecific, however suggest elements of frontotemporal dementia and normal pressure hydrocephalus. Correlate with clinical and laboratory findings. Labs Result diagrams: 01/17/22 06:30 01/17/22 06:30 Labs: Laboratory Results - last 24 hr 01/16/22 01/16/22 01/16/22 16:30 16:30 16:30 WBC 5.50 RBC 3.59 L Hgb 10.6 L Hct 35.3 L MCV 98 H MCH 29.5 MCHC 30.0 L RDW 14.3 H Plt Count 128 L MPV 11.9 H Immature Gran % 0.7 Neutrophils % 67.5 Lymphocytes % 17.8 Monocytes % 8.4 Eosinophils % 5.1 Basophils % 0.5 Nucleated RBC % 0.0 Absolute Neutrophils 3.71 Absolute Lymphocytes 0.98 L Absolute Monocytes 0.46 Absolute Eosinophils 0.28 Absolute Basophils 0.03 Sodium 144 Potassium 4.6 Chloride 107 Carbon Dioxide 31.8 Anion Gap 5.2 BUN 23 H Creatinine 2.0 H Est GFR (CKD-EPI 2020) 32.10 Glucose 102 Calcium 8.9 Magnesium 1.7 L Total Bilirubin 0.9 AST 11 L ALT 14 L Alkaline Phosphatase 77 Total Protein 7.1 Albumin 4.0 TSH 1.30 Stl C.difficile Tox PCR 01/16/22 17:00 WBC RBC Hgb Hct MCV MCH MCHC RDW Plt Count MPV Immature Gran % Neutrophils % Lymphocytes % Monocytes % Eosinophils % Basophils % Nucleated RBC % Absolute Neutrophils Absolute Lymphocytes Absolute Monocytes Absolute Eosinophils Absolute Basophils Sodium Potassium Chloride Carbon Dioxide Anion Gap BUN Creatinine Est GFR (CKD-EPI 2020) Glucose Calcium Magnesium Total Bilirubin AST ALT Alkaline Phosphatase Total Protein Albumin TSH Stl C.difficile Tox PCR Negative Last Vital Signs Temp 36.6 C 01/16/22 16:18 Pulse 89 01/16/22 16:18 Resp 19 01/16/22 16:18 BP 163/86 H 01/16/22 16:18 Pulse Ox 98 01/16/22 16:18
[2022-01-16 21:26] LABS: Source Nasal/Nares
[2022-01-16 22:02] LABS: COVID-19 PCR POSITIVE (Negative)
[2022-01-17] VITALS (9 sets, daily range): BP systolic 129–194; BP diastolic 73–100; PULSE 61–77; RESP 16–24; TEMP 36.1–37.2; O2SAT 93–99
--- NOTE | 2022-01-17 | DI.RAD_ITS ---
Exam(s) XR HUMERUS RT EXAM: XR HUMERUS RT CLINICAL HISTORY: RUE pain post fall. TECHNIQUE: 2D digital imaging was performed of the right humerus. Two images were obtained. AP and lateral views were obtained. COMPARISON: No exams were available for comparison FINDINGS: BONES: No acute fracture is present. No bony destructive lesion is seen. Visualized portion of elbow and shoulder joints are unremarkable. SOFT TISSUE: Normal. IMPRESSION: No acute fracture or dislocation. DATA REPOSITORY: RADIATION DOSE DELIVERED:
--- NOTE | 2022-01-17 00:06 | ED.GENADUL_ITS ---
Discharge Plan Disposition Patient Disposition: [facility] IN[facility]IENT Condition: Stable Discharge Details Clinical Impression: Multiple rib fractures, Dementia, Multiple falls, History of right hip replacement, Chronic renal insufficiency Admit Date/Time: 01/16/22 20:55 Admit Provider: Jaylen Delacruz Attending Provider: Jaylen Delacruz Primary Care Provider: Eufemia Arora ED Provider: Lillian Sam Discharge Data Discharge Date/Time-TO BE ENTERED AT DEPARTURE: 01/16/22 23:07 Medical Decision Making Patient had aquino scan secondary to age and pain complaints, CT head and cervical spine does not show evidence of acute abnormality, rib fractures noted to ribs 3 and 4 per radiology interpretation my review T1, T7, T8 fractures which appear to be subacute, these were reviewed with Dr. Guevara who does not feel as though these are acute per Secondary to pain and inability to ambulate, patient will be admitted to the hospital for observation, rosuvastatin oxycodone Patient of note is a DNR/DNI status On baseline oxygen, no need for additional supplementation Medical Records Medical records reviewed: Yes I reviewed the patient's medical records. HPI General Date/Time Provider Initiated Documentation: 01/16/22 16:32 . HPI Narrative: This 86-year-old male presents after mechanical fall reportedly. He was trying to step up when he missed a step, falling onto his right side. Patient reportedly hit his head. Denies loss of consciousness. States he was unable to get up secondary to pain on his right side. Complains of headache, right-sided chest wall pain, back pain. Denies any nausea or vomiting. Event occurred approximately an hour prior to arrival. Tetanus is reportedly up-to-date. Denies any strength or sensation change. States he felt fine prior to the fall. Related Data Home Medications Medication Instructions Recorded Confirmed acetic acid 2 % ear solution 3 drp otic (ear) TID 10/26/20 lansoprazole 30 mg capsule,delayed 30 mg PO DAILY 10/26/20 release loperamide-simethicone 2 mg-125 mg 1 tab PO Q3H PRN 10/26/20 tablet mometasone 0.1 % topical cream 1 applic topical DAILY PRN itching 10/26/20 multivitamin 1 tab PO DAILY 10/26/20 peg 400-propylene glycol (PF) 0.4 1 drp ophthalmic (eye) BID-QID PRN 10/26/20 %-0.3 % eye drops in a dropperette (Systane (PF)) sertraline 100 mg tablet 100 mg PO DAILY 10/26/20 tamsulosin 0.4 mg capsule (Flomax) 0.4 mg PO DAILY 10/26/20 trazodone 100 mg tablet 200 mg PO QHS PRN 10/26/20 acetaminophen 500 mg tablet 1,000 mg PO Q8H #30 tabs 01/19/22 albuterol sulfate 90 mcg/actuation 2 puff inhalation Q4H PRN PRN 01/19/22 aerosol inhaler (Ventolin HFA) shortness of breath or wheezing #0 grams ascorbic acid (vitamin C) 500 mg 1,000 mg PO BID #30 tabs 01/19/22 tablet (Vitamin C) cholecalciferol (vitamin D3) 25 2,000 unit PO DAILY #14 tabs 01/19/22 mcg (1,000 unit) tablet cyanocobalamin (vitamin B-12) 500 1,000 mcg PO DAILY #60 tabs 01/19/22 mcg tablet (Vitamin B-12) gabapentin 400 mg capsule 400 mg PO DAILY #0 caps 01/19/22 ipratropium 20 mcg-albuterol 100 1 puff inhalation QID PRN PRN #0 01/19/22 mcg/actuation mist for inhalation grams (Combivent Respimat) lidocaine 5 % topical patch 1 patch topical DAILY #30 ea 01/19/22 metoprolol succinate 50 mg 50 mg PO DAILY #30 tabs 01/19/22 tablet,extended release 24 hr (Toprol XL) oxycodone 5 mg tablet 5 mg PO BID PRN PRN pain #6 tabs 01/19/22 zinc sulfate 50 mg zinc (220 mg) 220 mg PO DAILY #7 caps 01/19/22 capsule (Zinc-220) Previous Rx's Medication Instructions Recorded acetaminophen 500 mg tablet 1,000 mg PO Q8H #30 tabs 01/19/22 albuterol sulfate 90 mcg/actuation 2 puff inhalation Q4H PRN PRN 01/19/22 aerosol inhaler (Ventolin HFA) shortness of breath or wheezing #0 grams ascorbic acid (vitamin C) 500 mg 1,000 mg PO BID #30 tabs 10/30/22 tablet (Vitamin C) cholecalciferol (vitamin D3) 25 2,000 unit PO DAILY #14 tabs 01/19/22 mcg (1,000 unit) tablet cyanocobalamin (vitamin B-12) 500 1,000 mcg PO DAILY #60 tabs 01/19/22 mcg tablet (Vitamin B-12) gabapentin 400 mg capsule 400 mg PO DAILY #0 caps 01/19/22 ipratropium 20 mcg-albuterol 100 1 puff inhalation QID PRN PRN #0 01/19/22 mcg/actuation mist for inhalation grams (Combivent Respimat) lidocaine 5 % topical patch 1 patch topical DAILY #30 ea 01/19/22 metoprolol succinate 50 mg 50 mg PO DAILY #30 tabs 01/19/22 tablet,extended release 24 hr (Toprol XL) oxycodone 5 mg tablet 5 mg PO BID PRN PRN pain #6 tabs 01/19/22 zinc sulfate 50 mg zinc (220 mg) 220 mg PO DAILY #7 caps 01/19/22 capsule (Zinc-220) Allergies Allergy/AdvReac Type Severity Reaction Status Date / Time hydromorphone [From Dilaudid] Allergy Verified 01/16/22 16:20 promethazine [From Phenergan] Allergy Verified 01/16/22 16:20 General Stated Complaint: Trauma MISTY: 3 Review of Systems All systems reviewed & are unremarkable except as noted in HPI and below PFSH All Active Problems (Updated 01/21/22 @ 08:19 by OSMAR Ibarra) Thyroid mass (Acute) Hypertension (Chronic) Multiple rib fractures (Acute) Musculoskeletal pain of right upper extremity (Acute) Chronic respiratory failure with hypoxia (Chronic) Dementia (Chronic) Vertebral compression fracture (Chronic) Closed rib fracture (Acute) Multiple falls (Chronic) COVID-19 (Acute) History of knee replacement (Chronic) History of right hip replacement (Acute) Urinary frequency (Acute) Chronic renal insufficiency (Acute) Osteoarthritis (Chronic) Insomnia (Acute) Migraine headache (Chronic) Depression (Chronic) Hyperlipidemia (Acute) IBS (irritable bowel syndrome) (Chronic) Esophageal reflux (Chronic) Anxiety (Chronic) Restless leg syndrome (Acute) Anemia (Chronic) Hypertension (Chronic) DJD (degenerative joint disease) (Chronic) Kidney stones (Chronic) Sensorineural hearing loss (SNHL) of both ears (Acute) Ear itching (Acute) 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) Otorrhea of both ears (Acute 11/03/13) Otitis externa (Acute 11/03/13) Otalgia (Acute 11/18/13) 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, 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) Medical History Cervical vertebral fracture s/p fall 01/17/17 Family History Father Stroke Mother Stroke Hypertension Pneumonia Sister Breast cancer Social History Smoking/Tobacco Use Status: Former Tobacco Use Quit Date: 03/23/1962 Smoking risk assessment performed?: Yes Alcohol Intake: current Alcohol Intake frequency: holidays/special occasions only Drug use: Never Household members: spouse 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 What is your relationship status?: Panel score (0-1 are the most socially isolated patients): 1 Do you feel safe at home: Yes Do you feel safe in your relationship?: Yes Exam Const General: cooperative, comfortable and no acute distress HENMT Head: normal to inspection Other: No hemotympanum Eyes Pupils: PERRL Neck Other: No midline tenderness Resp Effort & Inspection: normal respiratory effort Auscultation: clear to auscultation bilaterally Other: contusion right chest wall Cardio Rate: regular rate Rhythm: regular rhythm GI Inspection: normal to inspection Auscultation: normal bowel sounds Other: Right upper quadrant and right flank tenderness palpable, no visible sign of trauma. Skin General skin exam: no rashes or lesions noted Neuro General: patient alert and patient oriented x3 Cranial Nerves: CN's II-XI intact bilaterally Other: GCS 15 Extrem General: normal to inspection Course Vital Signs Vital signs: Vital Signs Temperature 36.6 C 01/16/22 16:18 Pulse 89 01/16/22 16:18 Respiratory Rate 19 01/16/22 16:18 Blood Pressure 163/86 H 01/16/22 16:18 Pulse Oximetry 98 01/16/22 16:18 Temperature 36.6 C 01/16/22 16:18 Temperature Source Temporal Artery Scan 01/16/22 16:18 Pulse 70 01/16/22 21:47 Pulse 72 01/16/22 21:50 Respiratory Rate 27 H 01/16/22 21:50 Respiratory Effort 01/16/22 16:40 Blood Pressure 164/66 H 01/16/22 21:47 Blood Pressure Mean 89 01/16/22 21:47 Blood Pressure Position Sitting 01/16/22 16:18 Pulse Oximetry 96 01/16/22 21:50 Oxygen Delivery Method Nasal Cannula 01/16/22 16:18 Oxygen Flow Rate 2 01/16/22 16:18 Pain Level 8 01/16/22 16:40 Lab/Test Results Lab/Test Results: Laboratory Tests Range/Units 01/16/22 01/16/22 01/16/22 16:30 16:30 16:30 WBC (4.4-10.8) 10^3/uL 5.50 RBC (4.36-5.78) 10^6/uL 3.59 L Hgb (13.5-17.5) g/dL 10.6 L Hct (40.0-50.0) % 35.3 L MCV (80-95) fL 98 H MCH (27.0-33.0) pg 29.5 MCHC (32.0-36.0) % 30.0 L RDW (11.8-14.1) % 14.3 H Plt Count (130-400) 10^3/uL 128 L MPV (8.0-11.0) fL 11.9 H Immature Gran % 0.7 Neutrophils % 67.5 Lymphocytes % 17.8 Monocytes % 8.4 Eosinophils % 5.1 Basophils % 0.5 Nucleated RBC % (0.0-0.3) % 0.0 Absolute Neutrophils (1.2-6.7) 10^3/uL 3.71 Absolute Lymphocytes (1.2-3.4) 10^3/uL 0.98 L Absolute Monocytes (0.1-0.8) 10^3/uL 0.46 Absolute Eosinophils (0.0-0.7) 10^3/uL 0.28 Absolute Basophils (0.0-0.2) 10^3/uL 0.03 Sodium (136-145) mmol/L 144 Potassium (3.5-5.1) mmol/L 4.6 Chloride (98-107) mmol/L 107 Carbon Dioxide (21.0-32.0) mmol/L 31.8 Anion Gap (3-11) mmol/L 5.2 BUN (7-18) mg/dL 23 H Creatinine (0.70-1.30) mg/dL 2.0 H Est GFR (CKD-EPI 2020) (mL/min/1.73m2) 32.10 Glucose (74-106) mg/dL 102 Calcium (8.5-10.1) mg/dL 8.9 Magnesium (1.8-2.4) mg/dL 1.7 L Total Bilirubin (0.2-1.0) mg/dL 0.9 AST (15-37) U/L 11 L ALT (16-63) U/L 14 L Alkaline Phosphatase (46-116) U/L 77 Total Protein (6.4-8.2) g/dL 7.1 Albumin (3.4-5.0) g/dL 4.0 TSH (0.36-3.74) uIU/mL 1.30 Stl C.difficile Tox PCR (Negative) Range/Units 01/16/22 17:00 WBC (4.4-10.8) 10^3/uL RBC (4.36-5.78) 10^6/uL Hgb (13.5-17.5) g/dL Hct (40.0-50.0) % MCV (80-95) fL MCH (27.0-33.0) pg MCHC (32.0-36.0) % RDW (11.8-14.1) % Plt Count (130-400) 10^3/uL MPV (8.0-11.0) fL Immature Gran % Neutrophils % Lymphocytes % Monocytes % Eosinophils % Basophils % Nucleated RBC % (0.0-0.3) % Absolute Neutrophils (1.2-6.7) 10^3/uL Absolute Lymphocytes (1.2-3.4) 10^3/uL Absolute Monocytes (0.1-0.8) 10^3/uL Absolute Eosinophils (0.0-0.7) 10^3/uL Absolute Basophils (0.0-0.2) 10^3/uL Sodium (136-145) mmol/L Potassium (3.5-5.1) mmol/L Chloride (98-107) mmol/L Carbon Dioxide (21.0-32.0) mmol/L Anion Gap (3-11) mmol/L BUN (7-18) mg/dL Creatinine (0.70-1.30) mg/dL Est GFR (CKD-EPI 2020) (mL/min/1.73m2) Glucose (74-106) mg/dL Calcium (8.5-10.1) mg/dL Magnesium (1.8-2.4) mg/dL Total Bilirubin (0.2-1.0) mg/dL AST (15-37) U/L ALT (16-63) U/L Alkaline Phosphatase (46-116) U/L Total Protein (6.4-8.2) g/dL Albumin (3.4-5.0) g/dL TSH (0.36-3.74) uIU/mL Stl C.difficile Tox PCR (Negative) Negative
[2022-01-17] MEDS: Acetaminophen 500 MG TAB 1000 MG PO ×3 (00:25→15:32)
[2022-01-17] MEDS: Gabapentin 100 MG CAP 200 MG PO ×2 (00:26→20:39)
[2022-01-17] MEDS: Metoprolol 25 MG TAB PO ×3 (00:30→15:35)
[2022-01-17] MEDS: oxyCODONE 5 MG TAB PO ×4 (01:05→17:43)
[2022-01-17 02:18] LABS: Bilirubin Negative (Negative); Blood Negative (Negative); Clarity Clear (Clear); Glucose Negative (Negative); Ketones Negative (Negative); Leukocyte Esterase Negative (Negative); Nitrite Negative (Negative); Urobilinogen 0.2 EU/dL (Up TO 0.2)
[2022-01-17 02:24] LABS: Bacteria Rare HPF (Negative); C & S Indicated? No; Casts Negative LPF (Negative); Crystals Negative HPF (Negative); Epithelial Cells Rare HPF (Negative); Mucus Negative (Negative); RBC Negative HPF (0-2); WBC Negative HPF (0-5)
[2022-01-17 06:50] LABS: Abs Immature Grans 0.01 10^3/uL (0.0-0.06); Absolute Basophil Count 0.01 10^3/uL (0.0-0.2); Absolute Eosinophil Count 0.25 10^3/uL (0.0-0.7); Absolute Lymphocyte Count 0.82 10^3/uL (1.2-3.4); Absolute Monocyte Count 0.66 10^3/uL (0.1-0.8); Absolute Neutrophil Count 4.12 10^3/uL (1.2-6.7); Basophils % 0.2; Eosinophils % 4.3; HCT 34.7 % (40.0-50.0); HGB 10.6 g/dL (13.5-17.5); Immature Grans % 0.2; MCH 29.9 pg (27.0-33.0); MCHC 30.5 % (32.0-36.0); MCV 98 fL (80-95); MPV 12.2 fL (8.0-11.0); Monocytes % 11.2; Neutrophils % 70.1; Platelet Count 114 10^3/uL (130-400); RBC 3.54 10^6/uL (4.36-5.78); RDW 14.2 % (11.8-14.1); RDW-SD 51.1 fL; WBC 5.87 10^3/uL (4.4-10.8)
--- NOTE | 2022-01-17 07:00 | RT.EKG_ITS ---
APPROVED REPORT Exam: Resting ECG Reason for Exam: CHEST PAIN Patient Location: I HR:71 bpm ECG Measurements Heart Rate [address] 269 P 42 QRSd 161 QRS 77 QT 450 T 6 QTc 490 Conclusion Sinus rhythm...normal P axis, V-rate 50- [address] interval...CT >220, V-rate 50- 90 Right bundle branch block...QRSd>120, terminal axis(90,270)
[2022-01-17 07:11] LABS: C-Reactive Protein 0.54 mg/dL (0.0-0.3)
[2022-01-17 07:12] LABS: Creatine Kinase 24 U/L (39-308); Iron 35 ug/dL (65-175); Lipase 16 U/L (73-393); Total Iron Binding Capacity 293 ug/dL (250-450); Transferrin Sat 12 % (20-55)
[2022-01-17 07:24] LABS: Ferritin 144 ng/mL (26-388)
[2022-01-17 07:27] LABS: Troponin I < 50 ng/L (<or=60)
[2022-01-17 07:40] LABS: ALT 14 U/L (16-63); AST 12 U/L (15-37); Albumin 4.1 g/dL (3.4-5.0); Alkaline Phosphatase 79 U/L (46-116); Anion Gap 7.1 mmol/L (3-11); BUN 23 mg/dL (7-18); Bilirubin, Total 0.8 mg/dL (0.2-1.0); CO2 30.9 mmol/L (21.0-32.0); CREATININE 1.8 mg/dL (0.70-1.30); Calcium 8.9 mg/dL (8.5-10.1); Chloride 104 mmol/L (98-107); Estimated GFR 36.43 (mL/min/1.73m2); Glucose 99 mg/dL (74-106); Magnesium 1.7 mg/dL (1.8-2.4); Sodium 142 mmol/L (136-145); Total Protein 6.8 g/dL (6.4-8.2)
[2022-01-17] MEDS: Lansoprazole 30 MG CAPCR PO (07:45)
[2022-01-17] MEDS: Tamsulosin 0.4 MG CAPCR PO (07:46)
[2022-01-17] MEDS: Gabapentin 100 MG CAP PO ×2 (07:47→14:16)
[2022-01-17] MEDS: Sertraline 100 MG TAB PO (07:47)
[2022-01-17] MEDS: Multivitamin TAB 1 TAB PO (07:49)
[2022-01-17] MEDS: Lidocaine 5% Patch 1 PATCH TP (07:50)
[2022-01-17] MEDS: Normal Saline Flush 10 ML SYR IVP ×3 (07:52→17:44)
[2022-01-17 08:01] LABS: Folate 18.9 ng/mL (8.6-20.0); Vitamin B12 382 pg/mL (193-986)
--- NOTE | 2022-01-17 08:21 | PDOC.CMIN ---
- If Service Date Differs Date of service: 01/17/22 Time of Service: 08:21 Care Management Initial Assess REASON FOR HOSPITALIZATION:: Covid, multiple falls PAST MEDICAL HISTORY/PAST SURGICAL HISTORY:: All Active Problems (Updated 01/17/22 @ 07:11 by Jaylen Delacruz). Dementia (Chronic). Vertebral compression fracture (Acute). Closed rib fracture (Acute). Multiple falls (Acute). COVID-19 (Acute). History of knee replacement (Chronic). History of right hip replacement (Acute). Urinary frequency (Acute). Chronic renal insufficiency (Acute). Osteoarthritis (Chronic). Insomnia (Acute). Migraine headache (Chronic). Depression (Chronic). Hyperlipidemia (Acute). IBS (irritable bowel syndrome) (Chronic). Esophageal reflux (Chronic). Anxiety (Chronic). Restless leg syndrome (Acute). Anemia (Chronic). Hypertension (Chronic). DJD (degenerative joint disease) (Chronic). Kidney stones (Chronic). Sensorineural hearing loss (SNHL) of both ears (Acute). Ear itching (Acute). 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 Otorrhea of both ears (Acute 11/03/13). Otitis externa (Acute 11/03/13). Otalgia (Acute 11/18/13). 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 Medical History . Cervical vertebral fracture. s/p fall 01/17/17 PREVIOUS FUNCTIONAL STATUS/SOCIAL/FAMILY SUPPORTS:: Sukhjinder lives in a handicapped apartment in [facility] with his Yulisa. They have 4 children, 11 grandchildren and 11 great grandchildren. 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 He is independent at baseline with ADLs but does require the use of a walker. He has [facility] high highest and nursing home Medicaid. CURRENT FUNCTIONAL STATUS:: Sukhjinder is on Covid isolation so SHEEBA was unable to meet with him in person and was unable to talk with him via phone. SHEEBA did speak with his Yulisa who was able to answer questions. Yulisa informed CM that Sukhjinder has been to rehab at [facility] twice in the past few months. He was there in late spring for about 2 weeks following a hip fracture and again in November for 3 weeks. She also informed CM that he has [facility] high highest (LTM) and has caregivers 3 times a week for 8 hours each time. Yulisa reported that Sukhjinder has been doing very well at home since then and that the most recent fall preceeding this admission was mechanical in nature. They were leaving a restaurant and tripped while stepping off a curb with his walker. They both fell. Yulisa informed CM that she anticipates that Sukhjinder may need to go to rehab again if he remains hospitalized for very long. ADVANCE DIRECTIVES:: on file. Yulisa Morel [facility]. Kathy Villalpando [facility] [phone] Has patient been provided with info about the portal/API?: Yes Did the patient sign up for the portal?: No CODE STATUS:: DNR/DNI INSURANCE COVERAGE / FINANCIAL ISSUES:: Medicare. [employer] CURRENT HOME/COMMUNITY SERVICES/EQUIPMENT:: [facility] High highest TECHNICAL AGRONOMIST support 3 times a week for 8 hours each day. PRIMARY CARE PHYSICIAN:: Eufemia Arora POTENTIAL DISCHARGE NEEDS:: Follow up with PCP and plan of care PATIENT/FAMILY EDUCATION NEEDS:: Review of discharge instructions, activity, limitations, follow up plan, Ask Me Three TRANSPORTATION:: to be determined by disposition PLAN:: Sukhjinder may benefit from short term rehab if recommended by PT. His anticipates that this may be desirable as she does not feel she can provide more care if his needs increase. Sukhjinder will follow up with his community providers and plan of care when he returns home. CM will continue to provide support to Sukhjinder and his family and assess for ongoing discharge needs.
--- NOTE | 2022-01-17 08:35 | DI.RAD_ITS ---
Exam(s) XR PORTABLE CHEST AP EXAM: XR PORTABLE CHEST AP CLINICAL HISTORY: f/u fall rib Fx TECHNIQUE: 2D digital imaging was performed of the chest. One images were obtained. AP views were obtained. COMPARISON: No exams were available for comparison FINDINGS: MEDIASTINUM: Normal. HEART: Normal. PULMONARY VASCULATURE: There is a tortuous thoracic aorta. LUNGS: There is diffuse prominence of the interstitium. No focal consolidating infiltrates are seen. PLEURAL SPACE: No pleural effusion or pneumothorax. BONE:Within normal limits for the patient's age. The known anterior right rib fractures are not well appreciated on this examination. OTHER FINDINGS:Normal. IMPRESSION: Diffuse interstitial prominence. This may represent an acute process such as edema or pneumonia, how ever, chronic pulmonary fibrotic changes may also have this appearance. Please correlate clinically. No focal consolidating infiltrate is seen. DATA REPOSITORY: RADIATION DOSE DELIVERED:
[2022-01-17] MEDS: REMDESIVIR 200 MG in Normal Saline 250 ML 250 MG IVPB (10:23)
[2022-01-17] MEDS: MAGNESIUM SULFATE 2 GM/50 ML BAG IVPB (11:46)
--- NOTE | 2022-01-17 14:09 | PT.INIE ---
Date of service: 01/17/22 Time of Service: 14:09 PT Notes Visit Reasons: Multiple Rib Fractures,Thoracic Vertebrae Compress Physical Therapy Inpatient Initial Evaluation Date: 01/17/2022 Referring Doctor: Jaylen Delacruz MD PT Orders: PT CONSULT: Limited ability Precautions: Fall. Standard. Activity as tolerated. Patient Profile/Admitting Diagnosis: Sukhjinder is an 86-year-old male who presented to the ED on 01/17/2022 due to yet another mechanical fall resulting to acute fracture of the third and fourth ribs. and L1 compression fracture. A series of imaging also showed chronic and lateral spondylolysis of L5, biconcave deformity at L1, C3 retrolisthesis, superior endplate T1 deformity, subacute and chronic fracture of the right ribs, sternum, and vertebral bodies, and chronic fracture of the right sacrum and pelvis. PMHX: All Active Problems?(Updated 01/17/22 @ 07:11 by Jaylen Delacruz) Dementia (Chronic) Vertebral compression fracture (Acute) Closed rib fracture (Acute) Multiple falls (Acute) COVID-19 (Acute) History of knee replacement (Chronic) History of right hip replacement (Acute) Urinary frequency (Acute) Chronic renal insufficiency (Acute) Osteoarthritis (Chronic) Insomnia (Acute) Migraine headache (Chronic) Depression (Chronic) Hyperlipidemia (Acute) IBS (irritable bowel syndrome) (Chronic) Esophageal reflux (Chronic) Anxiety (Chronic) Restless leg syndrome (Acute) Anemia (Chronic) Hypertension (Chronic) DJD (degenerative joint disease) (Chronic) Kidney stones (Chronic) Sensorineural hearing loss (SNHL) of both ears (Acute) Ear itching (Acute) 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 Cervical vertebral fracture s/p fall 01/17/17 Social History/Home Situation: Lives with in a private home with no steps to enter. Independent with indoor ambulation using the rollator. Equipment Owned/DME: Rollator Subjective: Complains of right-sided chest pain which nurse Chelsey is aware of. Reports pain in the right arm that is aggravated by weight bearing. Objective: General Observation: Seated on bedside chair. IV access on the R UE. Oxygen supplementation via NC at 1L/minute. Telemetry monitoring in place. Mental Status: Alert and oriented as to person, place, time, and purpose. Able to pay attention, focus, and respond appropriately. Pain: 5/10 in right side of chest Vital Signs: WNL as closely monitored via telemetry ROM: Right Upper Extremity: Shoulder Flexion lacks the last 75% of AROM due to pain. Shoulder abduction lacks the last 75% of AROM due to pain. Elbow flexion WFL. Wrist flexion WFL. Functional opening and closing of hand WFL. Left Upper Extremity: Shoulder Flexion lacks the last 75% of AROM due to pain. Shoulder abduction lacks the last 75% of AROM due to pain. Elbow flexion WFL. Wrist flexion WFL. Functional opening and closing of hand WFL. Right Lower Extremity: Hip flexion WFL. Hip abduction WFL. Knee flexion WFL. Ankle dorsiflexion WFL. Ankle plantarflexion WFL. Left Lower Extremity: Hip flexion WFL. Hip abduction WFL. Knee flexion WFL. Ankle dorsiflexion WFL. Ankle plantarflexion WFL. Strength: Right Upper Extremity: Shoulder flexors 2-/5. Shoulder abductors 2-/5. Elbow flexors 4-/5. Elbow extensors 4-/5. 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 Left Upper Extremity: Shoulder flexors 5/5. Shoulder abductors 5/5. Elbow flexors 5/5. Elbow extensors 5/5. 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 Right Lower Extremity: Hip flexors 4/5. Hip abductors 4/5. Knee flexors 5/5. Knee extensors 4/5. Ankle dorsiflexors 5/5. Ankle plantarflexors 5/5. Left Lower Extremity: Hip flexors 4/5. Hip abductors 4/5. Knee flexors 5/5. Knee extensors 4/5. Ankle dorsiflexors 5/5. Ankle plantarflexors 5/5. Bed Mobility/Transfers: Sit to stand contact guard assist Stand to sit contact guard assist Bed to reclining contact guard assist Reclining chair contact guard assist Gait: Instructed patient with level surface ambulation of 40 feet requiring contact guard assist using FWW. Nafisa decreased. Step height decreased. Step length decreased. Pain report in R arm mildly aggravated with weight bearing through walker. Mild shortness of breath noted. Balance: Static Sitting: Normal Dynamic Sitting: Normal Static Standing: Fair Dynamic Standing: Fair Special Tests: Mobility Limitations Standardized Measure [facility] AM-PAC 6 clicks Basic Mobility Inpatient Short Form: Raw Score: 18 CMS Score: 47% deficit Informed Consent/Education: Patient was instructed in purpose of PT consult and plan of care. Agreeable to proceed with established PT POC to achieve personal goals. Assessment: Patient presents with clinical signs and symptoms consistent with current/admitting diagnoses that have resulted to mobility limitations, gait instability, generalized weakness, and overall ADL decline as demonstrated by the following impairment level findings: 1. Decreased strength to R UE major muscle groups 2. Impaired standing balance 3. Impaired activity tolerance 4. Limitation of joint range of motion in R UE 5. Shortness of breath Impairments are contributing to the following functional limitations: 1. Difficulty with ambulation without assistive device and physical assistance 2. Increased completion time for mobility ADL performance 3. Increased risk for falls 4. Difficulty with managing steps alone safely Patient is assessed as a 52408 moderate complexity based on the following: History: 86-year-old female with past medical history as indicated above Examination: Demonstrable impairment in strength, balance, and mobility level with underlying impairments and functional limitations as exhibited above as well as deficit score of 47% utilizing the [facility] Mobility Inpatient Short Form Presentation: Evolving Decision Makin moderate complexity Goals: Goals X1 week 1. Supine-Sit independent 2. Sit-Supine independent 3. Sit-Stand independent 4. Stand-Sit independent with rollator 5. Bed-Chair independent with rollator 6. Chair-Bed independent with rollator 7. Independent gait on level surface with use of 300 for at least [] feet without report of pain nor dyspnea 8. Good static and dynamic standing balance/tolerance Plan of Care/Treatment Plan: 1-2x/day, 7 days/week x 1 week. Plan of care has been reviewed with the [employer] providing the service under Physical Therapy direction. Initiate Physical Therapy intervention for pain management as needed, strengthening, bed mobility, transfers, gait, stairs, balance training, and use of assistive device. DISCHARGE RECOMMENDATIONS: [] Home with no services [] [X] Home with services. Home when medically cleared by hospitalist. Patient will benefit from home health PT services in order to progress mobility level using least restrictive assistive ambulatory device, assess home safety, identify additional equipment needs, and establish a functional maintenance program that will increase ability of patient to remain at home. [] Home with outpatient PT [] [] SNF for continued rehabilitation [] [] Residential Care [] [] SNF versus LTC based on ability to participate and progress [] TREATMENT CODE/TIME: 21025 x20 minutes, 18647 x 20 minutes beginning at 14:09 PM. Thank you for the opportunity to participate in the care of this patient. Matilde Perez PT, DPT, CLT [facility] [place], [place]
[2022-01-17] MEDS: Cyanocobalamin 1000 MCG/ML VIAL IM/SC (14:16)
--- NOTE | 2022-01-17 15:48 | PGE_ITS ---
Date of Service Date of service: 01/17/22 Time of Service: 15:48 Assessment and Plan Assessment and plan (1) COVID-19: Status: Acute Assessment and plan: The likely cause of weakness. The patient is on his baseline O2 (1.5-2L of O2 by [place]), therefore I do not feel he would benefit from addition of dexamethasone at this time, but we will treat him with remdesivir, vitamin C, D, zinc, IS/acapella, combivent/prn albuterol. (2) Multiple rib fractures: Status: Acute Assessment and plan: Discussed with general surgery - Dr Toribio does not feel that, based on the appearance of the fractures, they are operable. WIll continue multimodal pain management - add NSAIDS. Encourage IS/acapella. (3) Chronic respiratory failure with hypoxia: Status: Chronic Assessment and plan: At baseline. Will monitor O2 sats on ambulation. Will need exercise oximetry prior to discharge. (4) Musculoskeletal pain of right upper extremity: Status: Acute Assessment and plan: Obtain XR R humerus (5) Multiple falls: Status: Acute Assessment and plan: PT consulted. (6) Vertebral compression fracture: Status: Chronic Assessment and plan: Chronically pain is controlled. PT consulted. encourage mobility. (7) Dementia: Status: Chronic Assessment and plan: Behaviors controlled. (8) DVT prophylaxis: Status: Acute Assessment and plan: SC heparin (9) Discharge planning issues: Status: Acute Assessment and plan: DNR/DNI Palliative care c/s. PT/OT c/s Anticipate discharge to SNF. Subjective Subjective Interval history since last seen: C/o RUE pain since the fall as well as R-sided rib pain. Denies dizziness, shortness of breath, nausea. Does report diarrhea. Exam Narrative Exam Narrative: General: Pleasant elderly male, A&Ox2, EKWOK, appears comfortable, but is guarding his LUE. HEENT: EOMI, MMM Heart: RRR, no m/r/g Lungs: Diminished breath sounds B Abdomen: soft, nontender, nondistended Extremities: No visible bruising RUE, able to move RUE, TTP mid-humerus on R Objective Last Vital Signs Temp 37.2 C 01/17/22 15:30 Pulse 63 01/17/22 15:30 Resp 18 01/17/22 15:30 BP 144/79 H 01/17/22 15:30 Pulse Ox 93 01/17/22 15:30 Laboratory Results - last 24 hr 01/16/22 01/16/22 01/16/22 16:30 16:30 16:30 WBC 5.50 RBC 3.59 L Hgb 10.6 L Hct 35.3 L MCV 98 H MCH 29.5 MCHC 30.0 L RDW 14.3 H Plt Count 128 L MPV 11.9 H Immature Gran % 0.7 Neutrophils % 67.5 Lymphocytes % 17.8 Monocytes % 8.4 Eosinophils % 5.1 Basophils % 0.5 Nucleated RBC % 0.0 Absolute Neutrophils 3.71 Absolute Lymphocytes 0.98 L Absolute Monocytes 0.46 Absolute Eosinophils 0.28 Absolute Basophils 0.03 Sodium 144 Potassium 4.6 Chloride 107 Carbon Dioxide 31.8 Anion Gap 5.2 BUN 23 H Creatinine 2.0 H Est GFR (CKD-EPI 2020) 32.10 Glucose 102 Calcium 8.9 Magnesium 1.7 L Iron TIBC Transferrin % Sat Ferritin Total Bilirubin 0.9 AST 11 L ALT 14 L Alkaline Phosphatase 77 Creatine Kinase Troponin I C-Reactive Protein Total Protein 7.1 Albumin 4.0 Lipase Vitamin B12 Folate TSH 1.30 Urine Color Urine Clarity Urine pH Ur Specific [place] Urine Protein Urine Ketones Urine Blood Urine Nitrite Urine Bilirubin Urine Urobilinogen Ur Leukocyte Esterase Urine RBC Urine WBC Ur Epithelial Cells Urine Crystals Urine Bacteria Urine Casts Urine Mucus Ur Culture Indicated? Urine Glucose Stl C.difficile Tox PCR COVID-19 Source SARS-CoV-2 (PCR) 01/16/22 01/16/22 01/17/22 17:00 21:20 02:00 WBC RBC Hgb Hct MCV MCH MCHC RDW Plt Count MPV Immature Gran % Neutrophils % Lymphocytes % Monocytes % Eosinophils % Basophils % Nucleated RBC % Absolute Neutrophils Absolute Lymphocytes Absolute Monocytes Absolute Eosinophils Absolute Basophils Sodium Potassium Chloride Carbon Dioxide Anion Gap BUN Creatinine Est GFR (CKD-EPI 2020) Glucose Calcium Magnesium Iron TIBC Transferrin % Sat Ferritin Total Bilirubin AST ALT Alkaline Phosphatase Creatine Kinase Troponin I C-Reactive Protein Total Protein Albumin Lipase Vitamin B12 Folate TSH Urine Color Yellow Urine Clarity Clear Urine pH 6.0 Ur Specific Sherborn 1.020 Urine Protein 30 H Urine Ketones Negative Urine Blood Negative Urine Nitrite Negative Urine Bilirubin Negative Urine Urobilinogen 0.2 Ur Leukocyte Esterase Negative Urine RBC Negative Urine WBC Negative Ur Epithelial Cells Rare Urine Crystals Negative Urine Bacteria Rare Urine Casts Negative Urine Mucus Negative Ur Culture Indicated? No Urine Glucose Negative Stl C.difficile Tox PCR Negative COVID-19 Source Nasal/Nares SARS-CoV-2 (PCR) POSITIVE A* 01/17/22 01/17/22 01/17/22 06:30 06:30 06:30 WBC RBC Hgb Hct MCV MCH MCHC RDW Plt Count MPV Immature Gran % Neutrophils % Lymphocytes % Monocytes % Eosinophils % Basophils % Nucleated RBC % Absolute Neutrophils Absolute Lymphocytes Absolute Monocytes Absolute Eosinophils Absolute Basophils Sodium Potassium Chloride Carbon Dioxide Anion Gap BUN Creatinine Est GFR (CKD-EPI 2020) Glucose Calcium Magnesium Iron 35 L TIBC 293 Transferrin % Sat 12 L Ferritin 144 Total Bilirubin AST ALT Alkaline Phosphatase Creatine Kinase Troponin I C-Reactive Protein 0.54 H Total Protein Albumin Lipase Vitamin B12 382 Folate 18.9 TSH Urine Color Urine Clarity Urine pH Ur Specific [place] Urine Protein Urine Ketones Urine Blood Urine Nitrite Urine Bilirubin Urine Urobilinogen Ur Leukocyte Esterase Urine RBC Urine WBC Ur Epithelial Cells Urine Crystals Urine Bacteria Urine Casts Urine Mucus Ur Culture Indicated? Urine Glucose Stl C.difficile Tox PCR COVID-19 Source SARS-CoV-2 (PCR) 01/17/22 01/17/22 01/17/22 06:30 06:30 06:30 WBC 5.87 RBC 3.54 L Hgb 10.6 L Hct 34.7 L MCV 98 H MCH 29.9 MCHC 30.5 L RDW 14.2 H Plt Count 114 L MPV 12.2 H Immature Gran % 0.2 Neutrophils % 70.1 Lymphocytes % 14.0 Monocytes % 11.2 Eosinophils % 4.3 Basophils % 0.2 Nucleated RBC % 0.0 Absolute Neutrophils 4.12 Absolute Lymphocytes 0.82 L Absolute Monocytes 0.66 Absolute Eosinophils 0.25 Absolute Basophils 0.01 Sodium 142 Potassium 4.0 Chloride 104 Carbon Dioxide 30.9 Anion Gap 7.1 BUN 23 H Creatinine 1.8 H Est GFR (CKD-EPI 2020) 36.43 Glucose 99 Calcium 8.9 Magnesium 1.7 L Iron TIBC Transferrin % Sat Ferritin Total Bilirubin 0.8 AST 12 L ALT 14 L Alkaline Phosphatase 79 Creatine Kinase 24 L Troponin I C-Reactive Protein Total Protein 6.8 Albumin 4.1 Lipase 16 Vitamin B12 Folate TSH Urine Color Urine Clarity Urine pH Ur Specific [place] Urine Protein Urine Ketones Urine Blood Urine Nitrite Urine Bilirubin Urine Urobilinogen Ur Leukocyte Esterase Urine RBC Urine WBC Ur Epithelial Cells Urine Crystals Urine Bacteria Urine Casts Urine Mucus Ur Culture Indicated? Urine Glucose Stl C.difficile Tox PCR COVID-19 Source SARS-CoV-2 (PCR) 01/17/22 06:30 WBC RBC Hgb Hct MCV MCH MCHC RDW Plt Count MPV Immature Gran % Neutrophils % Lymphocytes % Monocytes % Eosinophils % Basophils % Nucleated RBC % Absolute Neutrophils Absolute Lymphocytes Absolute Monocytes Absolute Eosinophils Absolute Basophils Sodium Potassium Chloride Carbon Dioxide Anion Gap BUN Creatinine Est GFR (CKD-EPI 2020) Glucose Calcium Magnesium Iron TIBC Transferrin % Sat Ferritin Total Bilirubin AST ALT Alkaline Phosphatase Creatine Kinase Troponin I < 50 C-Reactive Protein Total Protein Albumin Lipase Vitamin B12 Folate TSH Urine Color Urine Clarity Urine pH Ur Specific [place] Urine Protein Urine Ketones Urine Blood Urine Nitrite Urine Bilirubin Urine Urobilinogen Ur Leukocyte Esterase Urine RBC Urine WBC Ur Epithelial Cells Urine Crystals Urine Bacteria Urine Casts Urine Mucus Ur Culture Indicated? Urine Glucose Stl C.difficile Tox PCR COVID-19 Source SARS-CoV-2 (PCR)
[2022-01-17] MEDS: Simethicone 80 MG CHEW PO ×2 (17:43→20:39)
[2022-01-17] MEDS: Heparin 5,000 UNITS/ML VIAL 5000 UNITS SC (17:43)
[2022-01-17] MEDS: Ketorolac 15 MG/ML VIAL IVP (17:43)
[2022-01-17 19:53] LABS: PSA, Screening 0.4 ng/mL (<=6.5)
[2022-01-17] MEDS: Ascorbic Acid 500 MG TAB 1000 MG PO (20:39)
[2022-01-17] MEDS: Loperamide 2 MG CAP PO (20:40)
[2022-01-17] MEDS: Ipratropium/Albuterol 4 GM 120 PUFF INH IH (20:40)
[2022-01-17] MEDS: Patch Removal 1 EACH TP (21:26)
[2022-01-17] MEDS: Melatonin 3 MG TAB PO (21:58)
[2022-01-18] VITALS (9 sets, daily range): BP systolic 133–176; BP diastolic 69–94; PULSE 58–71; RESP 16–18; TEMP 36.4–37.5; O2SAT 95–98
[2022-01-18] MEDS: Heparin 5,000 UNITS/ML VIAL 5000 UNITS SC ×2 (00:16→09:17)
[2022-01-18] MEDS: Metoprolol 25 MG TAB PO ×4 (00:16→23:26)
[2022-01-18] MEDS: Acetaminophen 500 MG TAB 1000 MG PO ×4 (00:16→23:26)
[2022-01-18] MEDS: oxyCODONE 5 MG TAB PO ×4 (05:24→17:12)
[2022-01-18 07:00] LABS: Abs Immature Grans 0.01 10^3/uL (0.0-0.06); Absolute Basophil Count 0.02 10^3/uL (0.0-0.2); Absolute Eosinophil Count 0.18 10^3/uL (0.0-0.7); Absolute Lymphocyte Count 0.46 10^3/uL (1.2-3.4); Absolute Neutrophil Count 3.95 10^3/uL (1.2-6.7); Basophils % 0.4; Eosinophils % 3.4; HCT 31.6 % (40.0-50.0); HGB 9.9 g/dL (13.5-17.5); Immature Grans % 0.2; Lymphocytes % 8.8; MCH 30.3 pg (27.0-33.0); MCHC 31.3 % (32.0-36.0); MCV 97 fL (80-95); MPV 12.7 fL (8.0-11.0); Monocytes % 11.5; Neutrophils % 75.7; Platelet Count 93 10^3/uL (130-400); RBC 3.27 10^6/uL (4.36-5.78); RDW 14.2 % (11.8-14.1); RDW-SD 50.5 fL; WBC 5.22 10^3/uL (4.4-10.8)
[2022-01-18 07:08] LABS: INR 1.1 (0.9-1.1); Prothrombin Time 11.4 sec (9.3-11.0)
[2022-01-18 07:18] LABS: ALT 9 U/L (16-63); AST 12 U/L (15-37); Albumin 3.6 g/dL (3.4-5.0); Alkaline Phosphatase 70 U/L (46-116); Bilirubin, Direct 0.2 mg/dL (0.0-0.2); Bilirubin, Total 0.8 mg/dL (0.2-1.0); Total Protein 6.3 g/dL (6.4-8.2)
[2022-01-18 07:19] LABS: Anion Gap 6.8 mmol/L (3-11); BUN 26 mg/dL (7-18); C-Reactive Protein 4.22 mg/dL (0.0-0.3); CO2 29.2 mmol/L (21.0-32.0); CREATININE 1.9 mg/dL (0.70-1.30); Calcium 8.7 mg/dL (8.5-10.1); Chloride 105 mmol/L (98-107); Estimated GFR 34.14 (mL/min/1.73m2); Glucose 100 mg/dL (74-106); Magnesium 2.1 mg/dL (1.8-2.4); Potassium 4.2 mmol/L (3.5-5.1); Sodium 141 mmol/L (136-145)
[2022-01-18 07:32] LABS: D-Dimer 896 ng/mlFEU (<500)
[2022-01-18 07:46] LABS: Ferritin 138 ng/mL (26-388)
[2022-01-18] MEDS: REMDESIVIR 100 MG in Normal Saline 250 ML 250 MG IVPB (09:14)
[2022-01-18] MEDS: Lidocaine 5% Patch 1 PATCH TP (09:15)
[2022-01-18] MEDS: Normal Saline Flush 10 ML SYR IVP ×2 (09:15→20:22)
[2022-01-18] MEDS: Cholecalciferol (Vitamin D3) 1,000 UNIT TAB 2000 UNITS PO (09:15)
[2022-01-18] MEDS: Zinc Sulfate 220 MG TAB PO (09:15)
[2022-01-18] MEDS: Cyanocobalamin 500 MCG TAB 1000 MCG PO (09:16)
[2022-01-18] MEDS: Gabapentin 100 MG CAP PO ×2 (09:16→13:08)
[2022-01-18] MEDS: Lansoprazole 30 MG CAPCR PO (09:16)
[2022-01-18] MEDS: Multivitamin TAB 1 TAB PO (09:16)
[2022-01-18] MEDS: Sertraline 100 MG TAB PO (09:17)
[2022-01-18] MEDS: Simethicone 80 MG CHEW PO ×4 (09:17→21:18)
[2022-01-18] MEDS: Tamsulosin 0.4 MG CAPCR PO (09:17)
[2022-01-18] MEDS: Ascorbic Acid 500 MG TAB 1000 MG PO ×2 (09:33→20:23)
--- NOTE | 2022-01-18 09:56 | W.PM.HP.N ---
Date of service: 01/18/22 Time of Service: 09:30 Assessment and Plan Assessment and plan (1) Multiple rib fractures: Status: Acute Assessment and plan: I do not think there is any benefit to cervical surgical stabilization of his rib fractures. The rib fractures are well aligned, I do not appreciate any crepitus, and the anatomic location of the fractures would make repair of them challenging. Furthermore, the quality of his bone is a bit limited by some osteopenia, and I think the risks of surgery outweigh any potential benefits at this point. I would focus on multimodal pain therapy to help improve his pulmonary toileting and gentle and basic physical therapy to help with range of motion and mobility. He could consider a TLSO brace for his vertebral compression fractures, but given the chronic nature of them, and his general lack of tenderness, I do not think it would be very helpful here. Furthermore, the limitations of TLSO bracing would probably compromise his pulmonary function, more than it would add stability to his vertebral column. History of Present Illness History of Present Illness Chief Complaint: fall Narrative: Sukhjinder is an 86-year-old male who fell from standing level height 2 days ago while out to eat with his . He was brought to the hospital, with some nonfocal complaints, mostly in the form of aches and pains. He underwent CAT scan of his head and torso. He had no evidence of intracranial injury, and he was found to have multiple rib fractures, as well as age-indeterminate vertebral compression fractures. He was also found to be COVID-positive. Review of Systems Narrative: The review of systems is limited by difficulty with hearing, as well as dementia. Constitutional Constitutional: Reports body ache(s), Reports frequent falls, Reports weakness and Denies weight loss Eyes Eyes: Reports system reviewed and no additional complaints, except as documented ENT Ears, Nose, Mouth, and Throat: Reports hearing loss Cardiovascular Cardiovascular: Denies chest pain and Denies dyspnea Respiratory Respiratory: Denies chest congestion, Denies cough and Denies dyspnea Gastrointestinal Gastrointestinal: Reports system reviewed and no additional complaints, except as documented Musculoskeletal Musculoskeletal: Reports abnormal gait, Reports myalgias and Reports muscle weakness Neurologic Neurologic: Reports abnormal gait, Reports confusion, Reports frequent falls, Reports memory loss and Reports weakness Psychiatric Psychiatric: Reports confusion and Reports memory loss PFSH All Active Problems Multiple rib fractures (Acute) Discharge planning issues (Acute) DVT prophylaxis (Acute) Musculoskeletal pain of right upper extremity (Acute) Chronic respiratory failure with hypoxia (Chronic) Dementia (Chronic) Vertebral compression fracture (Chronic) Closed rib fracture (Acute) Multiple falls (Chronic) COVID-19 (Acute) History of knee replacement (Chronic) History of right hip replacement (Acute) Urinary frequency (Acute) Chronic renal insufficiency (Acute) Osteoarthritis (Chronic) Insomnia (Acute) Migraine headache (Chronic) Depression (Chronic) Hyperlipidemia (Acute) IBS (irritable bowel syndrome) (Chronic) Esophageal reflux (Chronic) Anxiety (Chronic) Restless leg syndrome (Acute) Anemia (Chronic) Hypertension (Chronic) DJD (degenerative joint disease) (Chronic) Kidney stones (Chronic) Sensorineural hearing loss (SNHL) of both ears (Acute) Ear itching (Acute) 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) Otorrhea of both ears (Acute 11/03/13) Otitis externa (Acute 11/03/13) Otalgia (Acute 11/18/13) 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, 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) Medical History Cervical vertebral fracture s/p fall 01/17/17 Family History Father Stroke Mother Stroke Hypertension Pneumonia Sister Breast cancer Social History Smoking/Tobacco Use Status: Former Tobacco Use Quit Date: 03/23/1962 Smoking risk assessment performed?: Yes Alcohol Intake: current Alcohol Intake frequency: holidays/special occasions only Drug use: Never Household members: spouse 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 What is your relationship status?: Panel score (0-1 are the most socially isolated patients): 1 Do you feel safe at home: Yes Do you feel safe in your relationship?: Yes Meds Allergies and Home Medications Allergies Allergy/AdvReac Type Severity Reaction Status Date / Time hydromorphone [From Dilaudid] Allergy Verified 01/16/22 16:20 promethazine [From Phenergan] Allergy Verified 01/16/22 16:20 Home Medications Medication Instructions Recorded Confirmed Type acetaminophen 650 mg 650 mg PO Q12H 10/26/20 History tablet,extended release acetic acid 2 % ear solution 3 drp otic (ear) TID 10/26/20 History alprazolam 0.5 mg tablet 0.5 mg PO TID 10/26/20 History gabapentin 400 mg capsule 400 mg PO DAILY 10/26/20 History lansoprazole 30 mg capsule,delayed 30 mg PO DAILY 10/26/20 History release loperamide-simethicone 2 mg-125 mg 1 tab PO Q3H PRN 10/26/20 History tablet mometasone 0.1 % topical cream 1 applic topical DAILY PRN itching 10/26/20 History multivitamin 1 tab PO DAILY 10/26/20 History peg 400-propylene glycol (PF) 0.4 1 drp ophthalmic (eye) BID-QID PRN 10/26/20 History %-0.3 % eye drops in a dropperette (Systane (PF)) sertraline 100 mg tablet 100 mg PO DAILY 10/26/20 History tamsulosin 0.4 mg capsule (Flomax) 0.4 mg PO DAILY 10/26/20 History trazodone 100 mg tablet 200 mg PO QHS PRN 10/26/20 History Exam Const General: cooperative, comfortable and no acute distress Nutritional Appearance: average body habitus Orientation: awake and confused [facility] Head: normal to inspection Ears: hearing grossly impaired Eyes General: appearance normal, both eyes and all related structures Neck Neck: normal visual inspection, full ROM, no lymphadenopathy and nontender Lymphatic: no lymphadenopathy noted Chest Chest: normal inspection of the chest, normal palpation of entire chest wall and no crepitus Resp Effort & Inspection: normal respiratory effort and no use of accessory muscles Auscultation: bronchial breath sounds and diminished lung sounds Cardio Rate: regular rate Rhythm: regular rhythm Heart Sounds: S1 normal and S2 normal GI Inspection: normal to inspection Palpation: soft and nontender Auscultation: normal bowel sounds Back/Spine/Pelvis Cervical Spine: No cervical spinal tenderness and No step off deformity Thoracic/Lumbar Spine: No thoracic spinal tenderness and No lumbar spinal tenderness Results Labs Result diagrams: 01/18/22 06:12 01/18/22 06:12 Labs: Laboratory Results - last 24 hr 01/18/22 01/18/22 01/18/22 06:12 06:12 06:12 WBC 5.22 RBC 3.27 L Hgb 9.9 L Hct 31.6 L MCV 97 H MCH 30.3 MCHC 31.3 L RDW 14.2 H Plt Count 93 L MPV 12.7 H Immature Gran % 0.2 Neutrophils % 75.7 Lymphocytes % 8.8 Monocytes % 11.5 Eosinophils % 3.4 Basophils % 0.4 Nucleated RBC % 0.0 Absolute Neutrophils 3.95 Absolute Lymphocytes 0.46 L Absolute Monocytes 0.60 Absolute Eosinophils 0.18 Absolute Basophils 0.02 PT INR D-Dimer Sodium 141 Potassium 4.2 Chloride 105 Carbon Dioxide 29.2 Anion Gap 6.8 BUN 26 H Creatinine 1.9 H Est GFR (CKD-EPI 2020) 34.14 Glucose 100 Calcium 8.7 Magnesium 2.1 Ferritin 138 Total Bilirubin 0.8 Conjugated Bilirubin 0.2 AST 12 L ALT 9 L Alkaline Phosphatase 70 C-Reactive Protein 4.22 H Total Protein 6.3 L Albumin 3.6 01/18/22 06:12 WBC RBC Hgb Hct MCV MCH MCHC RDW Plt Count MPV Immature Gran % Neutrophils % Lymphocytes % Monocytes % Eosinophils % Basophils % Nucleated RBC % Absolute Neutrophils Absolute Lymphocytes Absolute Monocytes Absolute Eosinophils Absolute Basophils PT 11.4 H INR 1.1 D-Dimer 896 H Sodium Potassium Chloride Carbon Dioxide Anion Gap BUN Creatinine Est GFR (CKD-EPI 2020) Glucose Calcium Magnesium Ferritin Total Bilirubin Conjugated Bilirubin AST ALT Alkaline Phosphatase C-Reactive Protein Total Protein Albumin Last Vital Signs Temp 97.7 F 01/18/22 03:25 Pulse 71 01/18/22 09:03 Resp 18 01/18/22 09:03 BP 176/94 H 01/18/22 09:03 Pulse Ox 98 01/18/22 09:03
[2022-01-18] MEDS: Ipratropium/Albuterol 4 GM 120 PUFF INH IH ×4 (10:40→20:23)
--- NOTE | 2022-01-18 11:36 | PT.INTREAT ---
PT Notes Visit Reasons: Multiple Rib Fractures,Thoracic Vertebrae Compress Date: 01/18/2022 PRECAUTIONS: Fall, activity as tolerated, COVID-19 SUBJECTIVE: Pt rpeorts elizabeth he is feeling much better today, looking forward to be able to move around the perimeter of his room. OBJECTIVE: ? PAIN: No c/o pain ? BED MOBILITY/TRANSFERS? Sit-stand: S? Stand-sit: S ? GAIT? Assistive Device: FWW? Weight bearing: Full Assist: SBA ? Distance:? 40' x3 ? Deviation: Cueing for increased step length, posture and turning direction to help with tube management.? ASSESSMENT:? Patient tolerated session well without complaint.?pt taking rest breaks in between distances to prevent SOB. PLAN: Continue with global strengthening and general conditioning for improved mobility and activity tolerance. TREATMENT CODE/TIME: ?30minutes;? [id number] (11:10)
[2022-01-18 16:52] LABS: Campylobacter PCR Negative (Negative); Salmonella PCR Negative (Negative); Shiga Toxin PCR Negative (Negative); Shigella/Enteroinvasive Ecoli Negative (Negative)
[2022-01-18 17:16] LABS: Vitamin D 25 Total 40.8 ng/mL (30-100)
--- NOTE | 2022-01-18 19:16 | PGE_ITS ---
Date of Service Date of service: 01/18/22 Time of Service: 19:16 Assessment and Plan Assessment and plan (1) COVID-19: Status: Acute Assessment and plan: The likely cause of weakness. The patient is on his baseline O2 (1.5-2L of O2 by [place]), therefore I do not feel he would benefit from addition of dexamethasone at this time, but we will treat him with remdesivir, vitamin C, D, zinc, IS/acapella, combivent/prn albuterol. Will check exercise oximetry in am. (2) Multiple rib fractures: Status: Acute Assessment and plan: Discussed with general surgery - Dr Toribio does not feel that, based on the appearance of the fractures, they are operable. WIll continue multimodal pain management. Encourage IS/acapella. (3) Chronic respiratory failure with hypoxia: Status: Chronic Assessment and plan: At baseline. Will monitor O2 sats on ambulation. Will need exercise oximetry prior to discharge. (4) Musculoskeletal pain of right upper extremity: Status: Acute Assessment and plan: Suspect soft tissue injury. No fx. PT consulted. (5) Multiple falls: Status: Chronic Assessment and plan: PT consulted. (6) Vertebral compression fracture: Status: Chronic Assessment and plan: Chronically pain is controlled. PT consulted. encourage mobility. (7) Dementia: Status: Chronic Assessment and plan: Behaviors controlled. (8) DVT prophylaxis: Status: Acute Assessment and plan: SC heparin (9) Discharge planning issues: Status: Acute Assessment and plan: DNR/DNI Palliative care c/s. PT/OT c/s Anticipate discharge to home with home health services Subjective Subjective Interval history since last seen: Sukhjinder reports not having much pain in his chest today - but still reports RUE pain. Denies dizziness, shortness of breath, nausea. Has been working with IS. At 1.5 -2 L of O2 (his baseline), saturating 95%. Exam Narrative Exam Narrative: General: Pleasant elderly male, A&Ox2, [id number], appears comfortable, but is guarding his RUE HEENT: EOMI, MMM Heart: RRR, no m/r/g Lungs: Diminished breath sounds B Abdomen: soft, nontender, nondistended Extremities: No visible bruising RUE, able to move RUE, TTP mid-humerus on R Objective Last Vital Signs Temp 37 C 01/18/22 17:19 Pulse 68 01/18/22 17:19 Resp 18 01/18/22 17:19 BP 162/77 H 01/18/22 17:19 Pulse Ox 95 01/18/22 17:19 Laboratory Results - last 24 hr 01/17/22 01/18/22 01/18/22 06:30 06:12 06:12 WBC 5.22 RBC 3.27 L Hgb 9.9 L Hct 31.6 L MCV 97 H MCH 30.3 MCHC 31.3 L RDW 14.2 H Plt Count 93 L MPV 12.7 H Immature Gran % 0.2 Neutrophils % 75.7 Lymphocytes % 8.8 Monocytes % 11.5 Eosinophils % 3.4 Basophils % 0.4 Nucleated RBC % 0.0 Absolute Neutrophils 3.95 Absolute Lymphocytes 0.46 L Absolute Monocytes 0.60 Absolute Eosinophils 0.18 Absolute Basophils 0.02 PT INR D-Dimer Sodium 141 Potassium 4.2 Chloride 105 Carbon Dioxide 29.2 Anion Gap 6.8 BUN 26 H Creatinine 1.9 H Est GFR (CKD-EPI 2020) 34.14 Glucose 100 Calcium 8.7 Magnesium 2.1 Ferritin 138 Total Bilirubin Conjugated Bilirubin AST ALT Alkaline Phosphatase C-Reactive Protein 4.22 H Total Protein Albumin PSA Screen 0.4 25-OH Vitamin D Total 01/18/22 01/18/22 01/18/22 06:12 06:12 06:12 WBC RBC Hgb Hct MCV MCH MCHC RDW Plt Count MPV Immature Gran % Neutrophils % Lymphocytes % Monocytes % Eosinophils % Basophils % Nucleated RBC % Absolute Neutrophils Absolute Lymphocytes Absolute Monocytes Absolute Eosinophils Absolute Basophils PT 11.4 H INR 1.1 D-Dimer 896 H Sodium Potassium Chloride Carbon Dioxide Anion Gap BUN Creatinine Est GFR (CKD-EPI 2020) Glucose Calcium Magnesium Ferritin Total Bilirubin 0.8 Conjugated Bilirubin 0.2 AST 12 L ALT 9 L Alkaline Phosphatase 70 C-Reactive Protein Total Protein 6.3 L Albumin 3.6 PSA Screen 25-OH Vitamin D Total 40.8
[2022-01-18] MEDS: Ketorolac 15 MG/ML VIAL IVP (20:22)
[2022-01-18] MEDS: Patch Removal 1 EACH TP (20:23)
[2022-01-18] MEDS: Melatonin 3 MG TAB PO (21:19)
[2022-01-18] MEDS: Gabapentin 100 MG CAP 200 MG PO (21:19)
[2022-01-19] MEDS: diphenhydrAMINE 25 MG CAP PO (00:36)
[2022-01-19 04:25] VITALS: BP 148/88; PULSE 64; RESP 18; TEMP 36.6; O2SAT 96
[2022-01-19 07:01] LABS: Absolute Basophil Count 0.01 10^3/uL (0.0-0.2); Absolute Eosinophil Count 0.17 10^3/uL (0.0-0.7); Absolute Lymphocyte Count 0.57 10^3/uL (1.2-3.4); Absolute Monocyte Count 0.59 10^3/uL (0.1-0.8); Absolute Neutrophil Count 1.59 10^3/uL (1.2-6.7); Basophils % 0.3; Eosinophils % 5.8; HCT 29.4 % (40.0-50.0); HGB 9.2 g/dL (13.5-17.5); Lymphocytes % 19.5; MCH 30.1 pg (27.0-33.0); MCHC 31.3 % (32.0-36.0); MCV 96 fL (80-95); MPV 12.2 fL (8.0-11.0); Monocytes % 20.1; Neutrophils % 54.3; Platelet Count 80 10^3/uL (130-400); RBC 3.06 10^6/uL (4.36-5.78); RDW 14.3 % (11.8-14.1); RDW-SD 50.8 fL; WBC 2.93 10^3/uL (4.4-10.8)
[2022-01-19 07:19] LABS: Prothrombin Time 12.4 sec (9.3-11.0)
[2022-01-19 07:22] LABS: INR 1.2 (0.9-1.1)
[2022-01-19 07:26] LABS: ALT 8 U/L (16-63); AST 13 U/L (15-37); Albumin 3.4 g/dL (3.4-5.0); Alkaline Phosphatase 65 U/L (46-116); Anion Gap 7.5 mmol/L (3-11); BUN 30 mg/dL (7-18); Bilirubin, Direct 0.3 mg/dL (0.0-0.2); Bilirubin, Total 0.8 mg/dL (0.2-1.0); C-Reactive Protein 6.13 mg/dL (0.0-0.3); CO2 28.5 mmol/L (21.0-32.0); CREATININE 2.1 mg/dL (0.70-1.30); Calcium 8.5 mg/dL (8.5-10.1); Chloride 104 mmol/L (98-107); Estimated GFR 30.28 (mL/min/1.73m2); Glucose 96 mg/dL (74-106); Magnesium 1.9 mg/dL (1.8-2.4); Potassium 3.8 mmol/L (3.5-5.1); Sodium 140 mmol/L (136-145); Total Protein 6.1 g/dL (6.4-8.2)
[2022-01-19 07:55] LABS: D-Dimer 784 ng/mlFEU (<500)
[2022-01-19 07:57] LABS: Ferritin 130 ng/mL (26-388)
[2022-01-19 08:04] LABS: Procalcitonin 0.1 ng/mL
[2022-01-19] MEDS: Polyethylene Glycol 3350 17 GM PACKET PO (08:38)
[2022-01-19] MEDS: Simethicone 80 MG CHEW PO ×2 (08:38→13:22)
[2022-01-19] MEDS: Normal Saline Flush 10 ML SYR IVP (08:38)
[2022-01-19] MEDS: Acetaminophen 500 MG TAB 1000 MG PO (08:38)
[2022-01-19] MEDS: Lidocaine 5% Patch 1 PATCH TP (08:38)
[2022-01-19] MEDS: Sertraline 100 MG TAB PO (08:39)
[2022-01-19] MEDS: Lansoprazole 30 MG CAPCR PO (08:39)
[2022-01-19] MEDS: Cholecalciferol (Vitamin D3) 1,000 UNIT TAB 2000 UNITS PO (08:39)
[2022-01-19] MEDS: Tamsulosin 0.4 MG CAPCR PO (08:39)
[2022-01-19] MEDS: Multivitamin TAB 1 TAB PO (08:39)
[2022-01-19] MEDS: Cyanocobalamin 500 MCG TAB 1000 MCG PO (08:39)
[2022-01-19] MEDS: Ascorbic Acid 500 MG TAB 1000 MG PO (08:39)
[2022-01-19] MEDS: Metoprolol 25 MG TAB PO (08:39)
[2022-01-19] MEDS: Zinc Sulfate 220 MG TAB PO (08:39)
[2022-01-19] MEDS: Gabapentin 100 MG CAP PO ×2 (08:39→13:22)
[2022-01-19] MEDS: Ipratropium/Albuterol 4 GM 120 PUFF INH IH (09:12)
[2022-01-19 09:20] VITALS: PULSE 70; PULSE 85; RESP 18; RESP 20; O2SAT 97; O2SAT 99
[2022-01-19 10:52] VITALS: BP 180/110; PULSE 84; RESP 18; TEMP 36.5; O2SAT 83
[2022-01-19 10:54] VITALS: BP 140/68; PULSE 57; RESP 18; TEMP 36.2; O2SAT 98
--- NOTE | 2022-01-19 11:00 | PT.INTREAT ---
Date of service: 01/19/22 Time of Service: 08:46 PT Notes Visit Reasons: Multiple Rib Fractures,Thoracic Vertebrae Compress Inpatient Physical Therapy Treatment Note [facility] Date: 01/19/2022 PRECAUTIONS: Activity as tolerated, fall, COVID-19 SUBJECTIVE: Sukhjinder is pleasant and agreeable to participate in PT. He reports that he is feeling much better today and is hopeful he will be discharged to home. OBJECTIVE: PAIN: Patient c/o discomfort in R shoulder at rest BED MOBILITY/TRANSFERS Supine-sit: I with HOB flat Sit-supine: I with HOB flat Sit-stand: S Stand-sit: S GAIT Assistive Device: 4WW Weight bearing: Full Assist: SBA Distance: ~100' Deviation: Gait unremarkable, no SOB, no LOB Static standing x5 minutes with B UE support and SBA. VITALS: Session was completed in collaboration with RT, please see their note for specific vital sign details. ASSESSMENT: Patient tolerated session well, tolerating a progression in gait distance with 4WW support, requiring SBA only, demonstrating unremarkable gait and without SOB. PLAN: Patient to discharge to home later today, per provider. Recommend follow up with PT, as needed for balance retraining. TREATMENT CODE/TIME: 27 minutes; [id number] x2 (08:46)
--- NOTE | 2022-01-19 12:14 | PDOC.HHF2F ---
Home Health Certification Home Health Certification: 1. Encounter Date and Reason I certify that Sukhjinder Morel was seen by Jasmina Etienne on 01/19/22 and that I had a [id number] encounter with this patient that meets the physician face to face encounter requirements. 2. Clinical Findings Supporting Skilled Need and Homebound Status I certify that home health services are medically necessary, include either intermittent correction and/or physical/speech therapy, and that this patient is homebound in that absences from the home require considerable and taxing effort and are infrequent or of short duration, or are attributable to the need to receive medical care. [X] (a) Attached documentation from encounter provides clinical findings supporting skilled need and homebound status (including what assistance patient requires to leave the home). The encounter with the patient was in whole, or in part, for the following medical condition, which is the primary reason for home health care: Multiple Rib Fractures,Thoracic Vertebrae Compress Physical Therapy: fall with rib fractures, ambulatory dysfunction, weakness due to COVID-19: eval and treat Homebound: unable to leave home without assistance 3. Certification and Authentication I certify that I composed the above information based on my clinical judgement relating to this patient's medical condition and, if applicable, clinical findings communicated to me by the NPP or inpatient physician who performed the Home Health Referral. All further orders will be obtained through __Eufemia Arora (Community Based Physician - PCP)
--- NOTE | 2022-01-19 12:20 | W.PM.DS.N ---
Date of service: 01/19/22 Time of Service: 12:20 DS: Diagnosis Discharge Diagnosis (1) COVID-19: Status: Acute Asessment and Plan: Completed a three day course of remdesivir (2) Multiple rib fractures: Status: Acute Asessment and Plan: Pain is controllled, being discharged with IS (3) Chronic respiratory failure with hypoxia: Status: Chronic Asessment and Plan: O2 sat 97% on his baseline O2 at 2L while ambulating (4) Musculoskeletal pain of right upper extremity: Status: Acute Asessment and Plan: Fracture ruled out (5) Multiple falls: Status: Chronic Asessment and Plan: Going home with home health PT (6) Vertebral compression fracture: Status: Chronic Asessment and Plan: Going home with home health PT (7) Dementia: Status: Chronic Asessment and Plan: Behaviors controlled (8) Hypertension: Status: Chronic (9) Thyroid mass: Status: Acute Discharge Plan Disposition Patient Disposition: HOME W/HOME HEALTH SERVICE Condition: Stable Discharge Details Reason For Visit: Multiple Rib Fractures,Thoracic Vertebrae Compress Admit Date/Time: 01/16/22 20:55 Admit Provider: Jaylen Delacruz Attending Provider: Jaylen Delacruz Primary Care Provider: Eufemia Arora Hospital Course Hospital Course: Mr Morel is an 86 year old male with PMHx of chronic hypoxic respiratory failure on 2L of o2 by MD (suspected due to COPD), as wellas h/o HTN, hyperlipidemia, dementia, prior falls, who was a patient on [facility] hospitalist service following a fall resulting in multiple right rib fractures. He had evidence of old right rib fractures as well as chronic vertebral fractures, sternal fractures, sacral and pelvic fractures. There is evidence of a subacute to chronic L1 compression fracture deformity. He was evaluated by general surgery for the rib fractures and was felt to not require surgery. His pain was controlled with a multimodal pain regimen. He was found to be positive for COVID-19, though he did not have any symptoms of shortness of breath or an increased oxygen requirement. It is possible that his weakness and fall were due to infection with COVID-19. He received a 3 day course of remdesivir while a patient here. For hypertension, he was initiated on metoprolol XL 50 mg PO daily. It is important to note that there were incidental findings of complex right thyroid mass for which PCP will need to follow up with an non-emergent ultrasound. There is also a 2.6 x 2.3 cm cystic structure in the left periaortic region. For this, radiology recommended a possible MRI which can be done as outpatient, if the patient so chooses. The patient is medically stable for discharge today with home health physical therapy as per recommendations of our in-house physical therapy. Care for patient as well Home Meds and New Rx's Prescriptions: New acetaminophen 500 mg Tablet 1,000 mg PO Q8H Qty: 30 0RF albuterol sulfate [Ventolin HFA] 90 mcg/actuation Hfa Aerosol Inhaler 2 puff inhalation Q4H PRN PRN (Reason: shortness of breath or wheezing) Qty: 0 0RF ascorbic acid (vitamin C) [Vitamin C] 500 mg Tablet 1,000 mg PO BID Qty: 30 0RF cholecalciferol (vitamin D3) 25 mcg (1,000 unit) Tablet 2,000 unit PO DAILY Qty: 14 0RF cyanocobalamin (vitamin B-12) [Vitamin B-12] 500 mcg Tablet 1,000 mcg PO DAILY Qty: 60 0RF lidocaine 5 % Adhesive Patch,Medicated 1 patch topical DAILY Qty: 30 0RF oxycodone 5 mg Tablet 5 mg PO BID PRN MDD 10 mg PRN (Reason: pain) Qty: 6 0RF Combivent Respimat 20-100 mcg/actuation Mist 1 puff inhalation QID PRN PRNQty: 0 0RF zinc sulfate [Zinc-220] 50 mg zinc (220 mg) Capsule 220 mg PO DAILY Qty: 7 0RF metoprolol succinate [Toprol XL] 50 mg tablet extended release 24 hr 50 mg PO DAILY Qty: 30 0RF Continued tamsulosin [Flomax] 0.4 mg capsule 0.4 mg PO DAILY lansoprazole 30 mg capsule,delayed release(DR/EC) 30 mg PO DAILY sertraline 100 mg tablet 100 mg PO DAILY multivitamin Tablet 1 tab PO DAILY loperamide-simethicone 2-125 mg tablet 1 tab PO Q3H PRN Rx Instructions: do not exceed 4 tabs in 24 hrs trazodone 100 mg tablet 200 mg PO QHS PRN Systane (PF) 0.4-0.3 % dropperette 1 drp ophthalmic (eye) BID-QID PRN mometasone 0.1 % cream 1 applic topical DAILY PRN (Reason: itching) Rx Instructions: externally to ear canals with finger tip acetic acid 2 % solution 3 drp otic (ear) TID gabapentin 400 mg capsule 400 mg PO DAILY Qty: 0 0RF Rx Instructions: Take according to the schedule you were taking gabapentin on at home Discontinued alprazolam 0.5 mg tablet 0.5 mg PO TID acetaminophen 650 mg tablet extended release 650 mg PO Q12H Discharge Instructions Instructions: How to Use an Incentive Spirometer (DC), Rib Fracture (DC), Chronic Hypertension (DC), COVID-19 (Coronavirus Disease 2019) (DC) Additional Instructions: Return to the hospital with any fever, bleeding, chest pain, or shortness of breath. You should self isolate for two more days. Use a walker when ambulating Follow up with your PCP in 1-2 weeks Care Plan Goals: Home with new home health PT Stand Alone Forms: Nursing Discharge Form Referrals: Eufemia Arora [Primary Care Provider] - (Please call Thursday to make a follow up appointment.) Activity:: Activity as Tolerated Equipment/Supplies:: No Equipment Needed Diet:: Low Sodium Discharge Orders Discharge Orders: Discharge Order (Routine); Ordered 01/19/22 Ordered By: Jasmina Etienne DS: Summary Time Spent with Patient providing and/or coordinating discharge services: Greater than 30 minutes Status at Discharge Functional status at discharge: uses cane/walker Overall status at discharge: patient is progressing back to baseline Mental Status: mental status grossly normal Speech and Movement: speech and movement normal Mood: congruent mood Affect: normal affect Exam Narrative Exam Narrative: General: Pleasant elderly male, A&Ox2, [place], appears comfortable, but is guarding his RUE HEENT: EOMI, MMM Heart: RRR, no m/r/g Lungs: Diminished breath sounds B Abdomen: soft, nontender, nondistended Extremities: No visible bruising RUE, able to move RUE, TTP mid-humerus on R Psych Mental Status: mental status grossly normal Speech and Movement: speech and movement normal Mood: congruent mood Affect: normal affect DS: Data Vitals/I&O Vitals and I&O: Vital Signs Temperature 36.2 C L 01/19/22 10:54 Temperature Source Tympanic 01/19/22 10:54 Pulse 57 L 01/19/22 10:54 Pulse Rhythm Regular 01/19/22 08:40 Pulse 72 01/16/22 21:50 Respiratory Rate 18 01/19/22 10:54 Respiratory Effort Non-Labored 01/19/22 08:40 Respiratory Depth Normal 01/19/22 08:40 Respiratory Pattern Normal 01/19/22 08:40 Blood Pressure 140/68 01/19/22 10:54 Blood Pressure Mean 89 01/16/22 21:47 Blood Pressure Position Sitting 01/16/22 16:18 Pulse Oximetry 98 01/19/22 10:54 Oxygen Delivery Method Nasal Cannula 01/19/22 10:54 Oxygen Flow Rate 1 01/19/22 10:54 Pain Level 0 01/19/22 10:54 Intake & Output 01/18/22 01/19/22 01/19/22 23:59 11:59 23:59 Intake Total 250 / 500 150 / 150 Output Total 400 / 600 Balance -150 / -100 150 / 150 Intake: Oral 250 / 250 150 / 150 Output: Urine 400 / 600 Other: Urine Color Yellow Urine Appearance Clear Stool Size Moderate Stool Characteristics Soft Soft Brown Voiding Methods Urinal Diaper Incontinent Data Completed and Pending Completed studies during hospitalization [Text1]: CT chest/abdomen/pelvis: 1. There are acute fractures involving the anterior aspects of the right 3rd and 4th ribs. 2. Subacute and chronic fractures involving right ribs, sternum and vertebral bodies. 3. No definite acute fracture involving the thoracic spine.? If there is concern for acute exacerbation of these fractures, an MRI may be useful for further characterization. 4. No acute abdominal or pelvic organ injury. 5. Chronic fractures involving the sacrum and pelvis. 6. Subacute to chronic L1 compression fracture deformity.? If there is concern, an MRI may be useful for further characterization. 7. Complex right thyroid mass. Nonemergent thyroid ultrasound may be obtained for further evaluation. 8. 2.6 x 2.3 cm cystic structure in the left periaortic region. This is nonspecific. MRI may be useful for further evaluation. CT head/c-spine: 1. No acute intracranial process.? 2. No definite acute fracture or subluxation in the cervical spine. 3. Marked enlargement of the right lobe of the thyroid gland.? Nonemergent ultrasound should be considered for further evaluation. 4. Mild depression of the superior endplate of T1 which appears chronic.? If symptomatic, MRI can be performed for further characterization. CT thoracic/lumbar spine: 1. There are acute fractures involving the anterior aspects of the right 3rd and 4th ribs. 2. Subacute and chronic fractures involving right ribs, sternum and vertebral bodies. 3. No definite acute fracture involving the thoracic spine.? If there is concern for acute exacerbation of these fractures, an MRI may be useful for further characterization. 4. No acute abdominal or pelvic organ injury. 5. Chronic fractures involving the sacrum and pelvis. 6. Subacute to chronic L1 compression fracture deformity.? If there is concern, an MRI may be useful for further characterization. 7. Complex right thyroid mass. Nonemergent thyroid ultrasound may be obtained for further evaluation. 8. 2.6 x 2.3 cm cystic structure in the left periaortic region. This is nonspecific. MRI may be useful for further evaluation XR R humerus: No acute fracture or dislocation.? CXR 01/17/22: Diffuse interstitial prominence.? This may represent an acute process such as edema or pneumonia, however, chronic pulmonary fibrotic changes may also have this appearance.? Please correlate clinically.? No focal consolidating infiltrate is seen.? Labs on day of discharge: Labs from last 24 hours 01/19/22 01/19/22 01/19/22 06:47 06:47 06:47 WBC 2.93 L RBC 3.06 L Hgb 9.2 L Hct 29.4 L MCV 96 H MCH 30.1 MCHC 31.3 L RDW 14.3 H Plt Count 80 L MPV 12.2 H Immature Gran % 0.0 Neutrophils % 54.3 Lymphocytes % 19.5 Monocytes % 20.1 Eosinophils % 5.8 Basophils % 0.3 Nucleated RBC % 0.0 Absolute Neutrophils 1.59 Absolute Lymphocytes 0.57 L Absolute Monocytes 0.59 Absolute Eosinophils 0.17 Absolute Basophils 0.01 PT 12.4 H INR 1.2 H D-Dimer 784 H Sodium Potassium Chloride Carbon Dioxide Anion Gap BUN Creatinine Est GFR (CKD-EPI 2020) Glucose Calcium Magnesium Ferritin Total Bilirubin Conjugated Bilirubin AST ALT Alkaline Phosphatase C-Reactive Protein Total Protein Albumin 25-OH Vitamin D Total Procalcitonin 0.1 01/19/22 01/18/22 06:47 06:12 WBC RBC Hgb Hct MCV MCH MCHC RDW Plt Count MPV Immature Gran % Neutrophils % Lymphocytes % Monocytes % Eosinophils % Basophils % Nucleated RBC % Absolute Neutrophils Absolute Lymphocytes Absolute Monocytes Absolute Eosinophils Absolute Basophils PT INR D-Dimer Sodium 140 Potassium 3.8 Chloride 104 Carbon Dioxide 28.5 Anion Gap 7.5 BUN 30 H Creatinine 2.1 H Est GFR (CKD-EPI 2020) 30.28 Glucose 96 Calcium 8.5 Magnesium 1.9 Ferritin 130 Total Bilirubin 0.8 Conjugated Bilirubin 0.3 H AST 13 L ALT 8 L Alkaline Phosphatase 65 C-Reactive Protein 6.13 H Total Protein 6.1 L Albumin 3.4 25-OH Vitamin D Total 40.8 Procalcitonin PFSH All Active Problems (Updated 01/19/22 @ 13:54 by Jasmina Etienne MD) Thyroid mass (Acute) Hypertension (Chronic) Multiple rib fractures (Acute) Discharge planning issues (Acute) DVT prophylaxis (Acute) Musculoskeletal pain of right upper extremity (Acute) Chronic respiratory failure with hypoxia (Chronic) Dementia (Chronic) Vertebral compression fracture (Chronic) Closed rib fracture (Acute) Multiple falls (Chronic) COVID-19 (Acute) History of knee replacement (Chronic) History of right hip replacement (Acute) Urinary frequency (Acute) Chronic renal insufficiency (Acute) Osteoarthritis (Chronic) Insomnia (Acute) Migraine headache (Chronic) Depression (Chronic) Hyperlipidemia (Acute) IBS (irritable bowel syndrome) (Chronic) Esophageal reflux (Chronic) Anxiety (Chronic) Restless leg syndrome (Acute) Anemia (Chronic) Hypertension (Chronic) DJD (degenerative joint disease) (Chronic) Kidney stones (Chronic) Sensorineural hearing loss (SNHL) of both ears (Acute) Ear itching (Acute) 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) Otorrhea of both ears (Acute 11/03/13) Otitis externa (Acute 11/03/13) Otalgia (Acute 11/18/13) 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, 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) Medical History Cervical vertebral fracture s/p fall 01/17/17 Family History Father Stroke Mother Stroke Hypertension Pneumonia Sister Breast cancer Social History Smoking/Tobacco Use Status: Former Tobacco Use Quit Date: 03/23/1962 Smoking risk assessment performed?: Yes Alcohol Intake: current Alcohol Intake frequency: holidays/special occasions only Drug use: Never Household members: spouse 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
--- NOTE | 2022-01-19 15:34 | CMDISCH_ITS ---
- If Service Date Differs Date of service: 01/19/22 Time of Service: 15:34 LACE Index Scoring Tool - Questions: Length of Stay (in days): 3 Acuity (Admit via E.D.?): Yes Comorbidities: Chronic Pulmonary Disease, Dementia, Liver or Renal Disease E.D. Visits: 1 - Answers: Total Score: 12 Risk of Readmission: High Risk Care Management Discharge Reason for Hospitalization: Covid, multiple falls Discharge Plan: Sukhjinder will discharge home with a resumption of his CFC support and with [facility] Sukhjinder will follow up with his community providers and plan of care and transport with his . Patient/Family Education Needs: Review of discharge instructions, activity, limitations, follow up plan, Ask Me Three
== END 2022-01-19 14:05 | disposition home health service (06) | DRG 183 ==
LOC: ER 18:22 → MS 23:10
PROVIDERS: Internal Medicine; Surgery; Admitting Provider Family Medicine; Emergency Provider Physician Assistant; PCP Internal Medicine; Visit Provider Family Medicine
DX: S22.41XA Multiple fractures of ribs, right side, initial encounter for closed fracture (principal); U07.1 COVID-19; J96.11 Chronic respiratory failure with hypoxia; M48.54XA Collapsed vertebra, not elsewhere classified, thoracic region, initial encounter for fracture; M48.56XA Collapsed vertebra, not elsewhere classified, lumbar region, initial encounter for fracture; M79.601 Pain in right arm; R29.6 Repeated falls; F03.90 Unspecified dementia, unspecified severity, without behavioral disturbance, psychotic disturbance, mood disturbance, and anxiety; Z96.641 Presence of right artificial hip joint; I12.9 Hypertensive chronic kidney disease with stage 1 through stage 4 chronic kidney disease, or unspecified chronic kidney disease; N18.9 Chronic kidney disease, unspecified; F41.9 Anxiety disorder, unspecified; D64.9 Anemia, unspecified; K58.9 Irritable bowel syndrome, unspecified; G43.909 Migraine, unspecified, not intractable, without status migrainosus; G47.00 Insomnia, unspecified; K21.9 Gastro-esophageal reflux disease without esophagitis; R35.0 Frequency of micturition; E78.5 Hyperlipidemia, unspecified; G25.81 Restless legs syndrome; Z66 Do not resuscitate; W18.39XA Other fall on same level, initial encounter; Z91.81 History of falling; E07.9 Disorder of thyroid, unspecified
CPT/HCPCS: 36415; 74177; 80048; 80053; 80076; 82306; 82550; 83690; 84145; 84153; 87493; 87505; 87635; 93005; 94618; 94640; 96374; 97162; 97530; 99223; 99285; 70450; 71045; 71260; 72125; 73060; 81003; 81015; 82607; 82728; 82746; 83540; 83550; 83735; 84443; 84484; 85025; 85379; 85610; 86140; 93010; 94667; 94668; 99232; 99233; 99239; J0248; J1644; J1885; J3010; J3420; J3490

== ENCOUNTER 2022-02-13 20:58 | Emergency (ER) | payer MEDICARE, SELFPAY ==
[2022-02-13 21:08] VITALS: BP 118/82; PULSE 92; RESP 16; TEMP 36.5; O2SAT 97
--- NOTE | 2022-02-13 21:30 | DI.CT_ITS ---
Exam(s) CT CHEST/ABD/PEL WO CT THORACIC LUMBAR SPINE WO EXAM: CT CHEST/ABD/PEL WO CLINICAL HISTORY: RUQ, R thorax pain after fall TECHNIQUE: CT examination of the chest, abdomen, and pelvis was performed without contrast administr ation. CT reconstructions of the lumbar and thoracic spine were also obtained. COMPARISON: CT CT THORACIC LUMBAR SPINE WO from 02/13/2022 FINDINGS: The lungs are predominantly clear. There is a small right pleural effusion seen. There is no mediastinal or hilar adenopathy. No thoracic aortic aneurysm. No gross mediastinal fluid collection. No bony abnormality seen in the thorax. The liver is normal appearance. Prior cholecystectomy noted, bile ducts are CT normal. No abnormality seen involving the spleen. Pancreas is largely fatty replaced. The adrenals are unremarkable in appearance. The kidneys appear intact with no evidence of hydroneph rosis or nephrolithiasis. Multiple apparent bilateral renal cysts are seen Abdominal aorta and major visceral branches appear intact by noncontrast criteria. No significant abdominal wall hernia seen. No significant abdominal or pelvic adenopathy. No focal bowel pathology. No evidence of appendicitis or diverticulitis. Note is again made of previously described T7, T8, T11, and L1 vertebral body compression deformities . No change from prior study. Chronic sternal deformity and probable old 10th and 11th rib fracture s noted period Acute fractures of right 6, 7th and 9th ribs noted. Is a mildly displaced mildly comminuted fracture extending through the base of the acromion. IMPRESSION: Acute fractures of right acromion and right ribs 6, 7, and 9. No other significant new findings.. RADIATION DOSE DELIVERED: Total DLP Total DLP Total DLP DATA REPOSITORY: All CT scans at this facility are submitted to the National Radiology Data Registry (NRDR) Dose Index Registry (DIR) with the [employer] [place] [employer] (A[employer]). RADIATION OPTIMIZATION: All CT scans at this facility use at least one of these dose optimization te chniques: automated exposure control; mA and/or kV adjustment per patient size (includes targeted exa ms where dose is matched to clinical indication); or iterative reconstruction.
--- NOTE | 2022-02-13 21:32 | W.ED.GENAD ---
Discharge Plan Disposition Patient Disposition: Home Condition: Improving Discharge Details Clinical Impression: Multiple fractures of ribs of right side, Closed fracture of right scapula Primary Care Provider: Eufemia Arora ED Provider: Ken Borrego Home Meds and New Rx's Prescriptions: New oxycodone 5 mg capsule 5 mg PO Q6H PRN (Reason: pain) Qty: 9 0RF Continued tamsulosin [Flomax] 0.4 mg capsule 0.4 mg PO DAILY lansoprazole 30 mg capsule,delayed release(DR/EC) 30 mg PO DAILY sertraline 100 mg tablet 100 mg PO DAILY multivitamin Tablet 1 tab PO DAILY loperamide-simethicone 2-125 mg tablet 1 tab PO Q3H PRN Rx Instructions: do not exceed 4 tabs in 24 hrs trazodone 100 mg tablet 200 mg PO QHS PRN Systane (PF) 0.4-0.3 % dropperette 1 drp ophthalmic (eye) BID-QID PRN mometasone 0.1 % cream 1 applic topical DAILY PRN (Reason: itching) Rx Instructions: externally to ear canals with finger tip acetic acid 2 % solution 3 drp otic (ear) TID acetaminophen 500 mg Tablet 1,000 mg PO Q8H Qty: 30 0RF albuterol sulfate [Ventolin HFA] 90 mcg/actuation Hfa Aerosol Inhaler 2 puff inhalation Q4H PRN PRN (Reason: shortness of breath or wheezing) Qty: 0 0RF ascorbic acid (vitamin C) [Vitamin C] 500 mg Tablet 1,000 mg PO BID Qty: 30 0RF cholecalciferol (vitamin D3) 25 mcg (1,000 unit) Tablet 2,000 unit PO DAILY Qty: 14 0RF cyanocobalamin (vitamin B-12) [Vitamin B-12] 500 mcg Tablet 1,000 mcg PO DAILY Qty: 60 0RF lidocaine 5 % Adhesive Patch,Medicated 1 patch topical DAILY Qty: 30 0RF oxycodone 5 mg Tablet 5 mg PO BID PRN MDD 10 mg PRN (Reason: pain) Qty: 6 0RF Combivent Respimat 20-100 mcg/actuation Mist 1 puff inhalation QID PRN PRNQty: 0 0RF zinc sulfate [Zinc-220] 50 mg zinc (220 mg) Capsule 220 mg PO DAILY Qty: 7 0RF metoprolol succinate [Toprol XL] 50 mg tablet extended release 24 hr 50 mg PO DAILY Qty: 30 0RF gabapentin 400 mg capsule 400 mg PO DAILY Qty: 0 0RF Rx Instructions: Take according to the schedule you were taking gabapentin on at home Discharge Instructions Instructions: Rib Fracture (ED) Additional Instructions: You have 4 right-sided rib fractures as we discussed. A fracture was also noted in the scapula and this may benefit from use of a sling as we discussed. Use your home incentive spirometer 10 times daily to keep the lungs well aerated. Continue routine medications including Tylenol as needed for discomfort. May use the provided oxycodone as needed for severe or breakthrough discomfort. Return if develop a fever, difficulty breathing, or any other acute concerns. Medical Decision Making 86-year-old male who slipped and fell at home in which he fell against the wall and then sank to the ground on his bottom on Thursday. Since that time he developed right upper quadrant and some mild back pain in the thoracic region. Improved with Tylenol and a dose of morphine at home. He arrives to the ER oxygenating normally on his home levels of supplemental O2, he is not hypotensive and his exam is notable primarily for thoracic cage tenderness. History has a history of compression fractures, rib fractures due to previous fall. Patient given parenteral analgesia, screening labs obtained and he is referred for CT images. Blood cell count is 6.5, hematocrit 34.6, platelets 158. Chemistries with unremarkable electrolytes, note of chronic renal insufficiency and BUN 21, creatinine 2.1. CT reveals previously noted L1 compression fracture, chronic rib deformities with acute fracture of the right sixth through ninth ribs and acute fracture of the right scapula. Discussed home management with family, they are desirous of managing at home. Patient declined a sling. We will treat with oxycodone for which patient was consented. They will continue Tylenol at home. They have incentive spirometer that they will use at home. They will return for any acute concerns. Sign Out No HPI General Mode of arrival: ambulatory. Date/Time Provider Initiated Documentation: 02/13/22 21:18. Limitations to Documentation: no limitations. Information obtained by: patient. History of Present Illness 86 year old M presents to the emergency department with the chief complaint of Fall, right upper quadrant pain, described as moderate, Quality is described as dull and constant, and is localized to the chest, back, abdomen and right. Patient reports no radiation. Patient started experiencing this day(s) and it has been intermittent. Rest improves symptom(s), Movement worsens symptoms . Patient notes denies confusion, cough, headaches, nausea/vomiting and shortness of breath. Patient did receive the following treatments prior to arrival, other (Morphine at home) Related Data Home Medications Medication Instructions Recorded Confirmed acetic acid 2 % ear solution 3 drp otic (ear) TID 10/26/20 lansoprazole 30 mg capsule,delayed 30 mg PO DAILY 10/26/20 release loperamide-simethicone 2 mg-125 mg 1 tab PO Q3H PRN 10/26/20 tablet mometasone 0.1 % topical cream 1 applic topical DAILY PRN itching 10/26/20 multivitamin 1 tab PO DAILY 10/26/20 peg 400-propylene glycol (PF) 0.4 1 drp ophthalmic (eye) BID-QID PRN 10/26/20 %-0.3 % eye drops in a dropperette (Systane (PF)) sertraline 100 mg tablet 100 mg PO DAILY 10/26/20 tamsulosin 0.4 mg capsule (Flomax) 0.4 mg PO DAILY 10/26/20 trazodone 100 mg tablet 200 mg PO QHS PRN 10/26/20 acetaminophen 500 mg tablet 1,000 mg PO Q8H #30 tabs 01/19/22 albuterol sulfate 90 mcg/actuation 2 puff inhalation Q4H PRN PRN 01/19/22 aerosol inhaler (Ventolin HFA) shortness of breath or wheezing #0 grams ascorbic acid (vitamin C) 500 mg 1,000 mg PO BID #30 tabs 01/19/22 tablet (Vitamin C) cholecalciferol (vitamin D3) 25 2,000 unit PO DAILY #14 tabs 01/19/22 mcg (1,000 unit) tablet cyanocobalamin (vitamin B-12) 500 1,000 mcg PO DAILY #60 tabs 01/19/22 mcg tablet (Vitamin B-12) gabapentin 400 mg capsule 400 mg PO DAILY #0 caps 01/19/22 ipratropium 20 mcg-albuterol 100 1 puff inhalation QID PRN PRN #0 01/19/22 mcg/actuation mist for inhalation grams (Combivent Respimat) lidocaine 5 % topical patch 1 patch topical DAILY #30 ea 01/19/22 metoprolol succinate 50 mg 50 mg PO DAILY #30 tabs 01/19/22 tablet,extended release 24 hr (Toprol XL) oxycodone 5 mg tablet 5 mg PO BID PRN PRN pain #6 tabs 01/19/22 zinc sulfate 50 mg zinc (220 mg) 220 mg PO DAILY #7 caps 01/19/22 capsule (Zinc-220) oxycodone 5 mg capsule 5 mg PO Q6H PRN pain #9 caps 02/13/22 Previous Rx's Medication Instructions Recorded acetaminophen 500 mg tablet 1,000 mg PO Q8H #30 tabs 01/19/22 albuterol sulfate 90 mcg/actuation 2 puff inhalation Q4H PRN PRN 01/19/22 aerosol inhaler (Ventolin HFA) shortness of breath or wheezing #0 grams ascorbic acid (vitamin C) 500 mg 1,000 mg PO BID #30 tabs 01/19/22 tablet (Vitamin C) cholecalciferol (vitamin D3) 25 2,000 unit PO DAILY #14 tabs 01/19/22 mcg (1,000 unit) tablet cyanocobalamin (vitamin B-12) 500 1,000 mcg PO DAILY #60 tabs 01/19/22 mcg tablet (Vitamin B-12) gabapentin 400 mg capsule 400 mg PO DAILY #0 caps 01/19/22 ipratropium 20 mcg-albuterol 100 1 puff inhalation QID PRN PRN #0 01/19/22 mcg/actuation mist for inhalation grams (Combivent Respimat) lidocaine 5 % topical patch 1 patch topical DAILY #30 ea 01/19/22 metoprolol succinate 50 mg 50 mg PO DAILY #30 tabs 01/19/22 tablet,extended release 24 hr (Toprol XL) oxycodone 5 mg tablet 5 mg PO BID PRN PRN pain #6 tabs 01/19/22 zinc sulfate 50 mg zinc (220 mg) 220 mg PO DAILY #7 caps 01/19/22 capsule (Zinc-220) oxycodone 5 mg capsule 5 mg PO Q6H PRN pain #9 caps 02/13/22 Allergies Allergy/AdvReac Type Severity Reaction Status Date / Time hydromorphone [From Dilaudid] Allergy Verified 01/16/22 16:20 promethazine [From Phenergan] Allergy Verified 01/16/22 16:20 General Stated Complaint: Abd Prob MISTY: 3 Review of Systems Narrative: No loss of consciousness, no headache. No neck pain systems reviewed and otherwise negative PFSH All Active Problems (Updated 02/13/22 @ 23:51 by Ken Borrego MD) Multiple fractures of ribs of right side (Acute) Closed fracture of right scapula (Acute) Thyroid mass (Acute) Hypertension (Chronic) Multiple rib fractures (Acute) Musculoskeletal pain of right upper extremity (Acute) Chronic respiratory failure with hypoxia (Chronic) Dementia (Chronic) Vertebral compression fracture (Chronic) Closed rib fracture (Acute) Multiple falls (Chronic) COVID-19 (Acute) History of knee replacement (Chronic) History of right hip replacement (Acute) Urinary frequency (Acute) Chronic renal insufficiency (Acute) Osteoarthritis (Chronic) Insomnia (Acute) Migraine headache (Chronic) Depression (Chronic) Hyperlipidemia (Acute) IBS (irritable bowel syndrome) (Chronic) Esophageal reflux (Chronic) Anxiety (Chronic) Restless leg syndrome (Acute) Anemia (Chronic) Hypertension (Chronic) DJD (degenerative joint disease) (Chronic) Kidney stones (Chronic) Sensorineural hearing loss (SNHL) of both ears (Acute) Ear itching (Acute) 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) Otorrhea of both ears (Acute 11/03/13) Otitis externa (Acute 11/03/13) Otalgia (Acute 11/18/13) 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, 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) Medical History Cervical vertebral fracture s/p fall 01/17/17 Family History Father Stroke Mother Stroke Hypertension Pneumonia Sister Breast cancer Social History Smoking/Tobacco Use Status: Former Tobacco Use Quit Date: 03/23/1962 Smoking risk assessment performed?: Yes Alcohol Intake: current Alcohol Intake frequency: holidays/special occasions only Drug use: Never Household members: spouse 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 Pleasant, well groomed, interactive. HEAD: Normocephalic, atraumatic ENT: Mucous membranes moist, oropharynx unremarkable, External ear exam unremarkable EYES: PERRL, EOMI NECK: Full ROM, no MILTON, no menigismus CHEST/RESP: Right anterior lateral lower thoracic woven blind loom tender to palpation, no crepitus,, clear to auscultation bilateral, no wheeze/rhonchi/rales CARDIOVASCULAR: RRR, no murmur, rub karine. 2+ Rad pulse bilateral ABDOMEN: Soft, right upper quadrant is tender to palpation, no rebound or guarding, no mass. +Bowel sounds EXT: Full ROM, no edema, no rash, no pain with internal or external rotation of the hips or compression of the pelvis. Neuro: Grossly normal neurologic exam, conversant, interactive. Psych: Speech fluent, thoughts congruent, affect normal Course Vital Signs Vital signs: Vital Signs Temperature 36.5 C 02/13/22 21:08 Pulse 92 H 02/13/22 21:08 Respiratory Rate 16 02/13/22 21:08 Blood Pressure 118/82 02/13/22 21:08 Pulse Oximetry 97 02/13/22 21:08 Temperature 36.5 C 02/13/22 21:08 Temperature Source Oral 02/13/22 21:08 Pulse 92 H 02/13/22 21:08 Respiratory Rate 16 02/13/22 21:08 Respiratory Effort 02/13/22 21:18 Blood Pressure 118/82 02/13/22 21:08 Blood Pressure Position Supine 02/13/22 21:08 Pulse Oximetry 97 02/13/22 21:08 Oxygen Delivery Method Nasal Cannula 02/13/22 21:08 Oxygen Flow Rate 2 02/13/22 21:08 Pain Level 10 02/13/22 21:08
[2022-02-13] MEDS: MORPHine 10 MG/ML VIAL 4 MG IVP (21:49)
[2022-02-13 22:02] LABS: Abs Immature Grans 0.02 10^3/uL (0.0-0.06); Absolute Basophil Count 0.02 10^3/uL (0.0-0.2); Absolute Eosinophil Count 0.19 10^3/uL (0.0-0.7); Absolute Lymphocyte Count 0.75 10^3/uL (1.2-3.4); Absolute Monocyte Count 0.81 10^3/uL (0.1-0.8); Absolute Neutrophil Count 4.72 10^3/uL (1.2-6.7); Basophils % 0.3; Eosinophils % 2.9; HCT 34.6 % (40.0-50.0); HGB 10.6 g/dL (13.5-17.5); Immature Grans % 0.3; Lymphocytes % 11.5; MCH 29.9 pg (27.0-33.0); MCHC 30.6 % (32.0-36.0); MCV 98 fL (80-95); MPV 12.4 fL (8.0-11.0); Monocytes % 12.4; Neutrophils % 72.6; Platelet Count 158 10^3/uL (130-400); RBC 3.55 10^6/uL (4.36-5.78); RDW 14.1 % (11.8-14.1); RDW-SD 50.9 fL; WBC 6.51 10^3/uL (4.4-10.8)
[2022-02-13 22:14] LABS: ALT 17 U/L (16-63); AST 17 U/L (15-37); Albumin 4.1 g/dL (3.4-5.0); Alkaline Phosphatase 120 U/L (46-116); Anion Gap 5.4 mmol/L (3-11); BUN 21 mg/dL (7-18); Bilirubin, Total 0.9 mg/dL (0.2-1.0); CO2 34.6 mmol/L (21.0-32.0); CREATININE 2.1 mg/dL (0.70-1.30); Calcium 8.9 mg/dL (8.5-10.1); Chloride 100 mmol/L (98-107); Estimated GFR 30.28 (mL/min/1.73m2); Glucose 129 mg/dL (74-106); Potassium 4.1 mmol/L (3.5-5.1); Sodium 140 mmol/L (136-145); Total Protein 7.6 g/dL (6.4-8.2)
[2022-02-13] MEDS: Famotidine 20 MG/2 ML VIAL IVP (22:22)
--- NOTE | 2022-02-13 23:29 | DI.VRAD_ITS ---
PROCEDURE INFORMATION: Exam: CT Chest Without Contrast; Diagnostic Exam date and time: 02/13/2022 10:34 PM Age: 86 years old Clinical indication: Other: Ruq, R thorax pain after fall TECHNIQUE: Imaging protocol: Diagnostic computed tomography of the chest without contrast. 3D rendering (Not supervised by radiologist): MIP and/or 3D reconstructed images were created by the technologist. COMPARISON: CT CHEST/ABD/PEL W 01/16/2022 5:26 PM FINDINGS: Thyroid: Enlarged right thyroid lobe, 6.5 x 7.1 x 9.3 cm, responsible for tracheal compression and deviation to the left. Lungs: Centrilobular emphysema. Pleural spaces: Trace pleural effusion on the right. Heart: Scattered coronary arterial calcifications. Mild cardiomegaly. Lymph nodes: Unremarkable. No enlarged lymph nodes. Vasculature: Atherosclerotic thoracic aorta. Bones/joints: L1 compression fracture, seen on the prior study. Chronic compression deformity of T11. Mild anterior wedging of T7 and T8 vertebral bodies, seen on the prior study. Chronic deformity of the sternum. Right 11th rib deformity, likely chronic. Deformities of healed fractures of the right 10th rib. Acute fracture of the right 9th rib. Deformity of the right 8th rib, indeterminate chronicity. Acute nondisplaced fracture of the right 7th rib. Acute fractures of the right 6th rib. Acute fracture of the right scapula. Soft tissues: Unremarkable. IMPRESSION: 1. Acute fractures of the right 9th, 7th, 6th ribs. Acute fracture of the right scapula. 2. Trace right-sided pleural effusion. Centrilobular emphysema. 3. Markedly enlarged right thyroid lobe responsible for tracheal compression and deviation to the left. PROCEDURE INFORMATION: Exam: CT Abdomen And Pelvis Without Contrast Exam date and time: 02/13/2022 10:34 PM Age: 86 years old Clinical indication: Other: Ruq, R thorax pain after fall TECHNIQUE: Imaging protocol: Computed tomography of the abdomen and pelvis without contrast. 3D rendering (Not supervised by radiologist): MIP and/or 3D reconstructed images were created by the technologist. COMPARISON: CT CHEST/ABD/PEL W 01/16/2022 5:26 PM FINDINGS: Liver: No mass. Gallbladder and bile ducts: Status post cholecystectomy. Pancreas: Atrophic pancreas. Spleen: No splenomegaly. Adrenal glands: Normal. No mass. Kidneys and ureters: Atrophic kidneys. Bilateral renal cysts. Stomach and bowel: Gaseous distention of the colon, possible ileus. No obstructing lesions identified. Colonic diverticulosis, no evidence for acute diverticulitis. Appendix: No evidence of appendicitis. Intraperitoneal space: No free air. No significant fluid collection. Vasculature: No abdominal aortic aneurysm. Lymph nodes: No enlarged lymph nodes. Urinary bladder: Cannot rule out presence of calculi within the urinary bladder. Reproductive: Prostate is not well seen due to beam hardening artifact. Bones/joints: Status post bilateral hip replacement. Deformity of the right ischial bone, likely chronic. Degenerative changes within sacroiliac joints. Chronic deformity of the right iliac bone. Soft tissues: Unremarkable. IMPRESSION: No evidence for an acute intra-abdominal organ injury. Dictated and Authenticated by: Mikey Lugo MD. Ordering:MELANIE Rogers MD
--- NOTE | 2022-02-13 23:38 | DI.VRAD_ITS ---
PROCEDURE INFORMATION: Exam: CT Thoracic Spine Without Contrast Exam date and time: 02/13/2022 10:34 PM Age: 86 years old Clinical indication: Other: Fall, back pain at t/l junction TECHNIQUE: Imaging protocol: Computed tomography of the thoracic spine without contrast. COMPARISON: CT THORACIC LUMBAR SPINE REC 01/16/2022 5:26 PM FINDINGS: Bones/joints: Multilevel degenerative changes with disc space narrowing and osteophyte formation. Stable compression fracture of L1. Mild loss of height within T7, T8, T9 vertebral bodies, similar appearance on the prior study. Fractures of the right 9th, 8th, 7th, 6 ribs. Soft tissues: Unremarkable. Lungs: Centrilobular emphysema. Small pleural effusion on the right. IMPRESSION: Diffuse osteopenia. Multilevel degenerative changes and stable multilevel compression deformities. Acute fractures of the right 6th through 9th ribs. PROCEDURE INFORMATION: Exam: CT Lumbar Spine Without Contrast Exam date and time: 02/13/2022 10:34 PM Age: 86 years old Clinical indication: Other: Fall, back pain at t/l junction TECHNIQUE: Imaging protocol: Computed tomography of the lumbar spine without contrast. COMPARISON: CT THORACIC LUMBAR SPINE REC 01/16/2022 5:26 PM FINDINGS: Bones/joints: Chronic compression fracture of L1. Mild multilevel degenerative changes within lumbar spine. 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 Multilevel degenerative changes within facet joints. Likely chronic deformity of the right iliac bone. Cannot rule out a superimposed acute nondisplaced fracture of the right iliac bone adjacent to the sacroiliac joint. Soft tissues: Unremarkable. IMPRESSION: Osteopenia. Multilevel degenerative changes. Chronic deformity of the right iliac bone. Cannot rule out a superimposed nondisplaced fracture of the right iliac bone adjacent to the right sacroiliac joint. Dictated and Authenticated by: Mikey Lugo MD. Ordering:MELANIE Rogers MD
[2022-02-13] MEDS: oxyCODONE 10 MG TAB PO (23:52)
[2022-02-13 23:59] VITALS: BP 142/70; PULSE 89; RESP 16; TEMP 36.9; O2SAT 94
== END 2022-02-14 00:02 | disposition home or self-care (01) ==
PROVIDERS: Emergency Provider Emergency Medicine; PCP Internal Medicine
DX: S22.41XA Multiple fractures of ribs, right side, initial encounter for closed fracture (principal); S42.101A Fracture of unspecified part of scapula, right shoulder, initial encounter for closed fracture; S32.019A Unspecified fracture of first lumbar vertebra, initial encounter for closed fracture; N18.9 Chronic kidney disease, unspecified; Z87.891 Personal history of nicotine dependence; W01.0XXA Fall on same level from slipping, tripping and stumbling without subsequent striking against object, initial encounter; Y92.009 Unspecified place in unspecified non-institutional (private) residence as the place of occurrence of the external cause
CPT/HCPCS: 36415; 71250; 80053; 96361; 96374; 96375; 99284; 72128; 72131; 74176; 85025; J2270

== ENCOUNTER 2022-07-27 17:41 | Inpatient (IN) | payer MEDICARE, SELFPAY ==
[2022-07-27] VITALS (52 sets, daily range): BP systolic 119–175; BP diastolic 63–105; PULSE 57–100; RESP 14–25; O2SAT 81–100
--- NOTE | 2022-07-27 18:15 | RT.EKG_ITS ---
APPROVED REPORT Exam: Resting ECG Reason for Exam: Patient Location: E HR:67 bpm ECG Measurements Heart Rate 67 AXIS NM 282 P 43 QRSd 161 QRS 117 QT 430 T 15 QTc 454 Conclusion Sinus rhythm...normal P axis, V-rate 60- 99 Prolonged NM interval...NM >220, V-rate 50- 90 Right bundle branch block...QRSd>120, terminal axis(90,270) Probable lateral infarct, old...Q>35mS, abnormal ST-T, V5-6 I aVL sinus rhythm, normal axis, RBBB
--- NOTE | 2022-07-27 18:15 | DI.CT_ITS ---
Exam(s) CT CHEST PE CTA EXAM: CT CHEST PE CTA CLINICAL HISTORY: CP, recent femur fx, AMS. TECHNIQUE: Imaging Protocol: Axial CT angiography was performed with multi-slice acquisition and mu lti-planar reconstructions as well as axial, coronal and sagittal MIP reconstructions. CONTRAST MATERIAL: Intravenous: Omnipaque 350 Contrast volume:100 ml COMPARISON: CT CT CHEST/ABD/PEL WO from 02/13/2022 FINDINGS: Pulmonary Arteries: No evidence of filling defect to suggest pulmonary emboli. Main pulmonary artery mildly dilated which could indicate pulmonary hypertension. Tracheobronchial tree: Patent where visualized. Mediastinum and Cyn: Enlarged right lobe of the thyroid again noted. No dominant adenopathy or flui d collection. Pulmonary parenchyma: Dependent changes. Emphysematous changes. No consolidation or dominant measur able mass. Pleura: No effusion or pneumothorax. Heart: The heart is mildly t dilated. Mild coronary artery calcifications are seen. Aorta: Thoracic aorta non-dilated. No aneurysm. No dissection. Atherosclerotic changes. Upper abdomen: Status post cholecystectomy. Atrophic pancreas. Renal cysts. Are stable appearance of left para-aortic low-density lymph node. Bones: Old right rib fractures and thoracic compression fractures. Soft tissues: Bilateral gynecomastia. IMPRESSION: No evidence of pulmonary embolism. No acute abnormality. RADIATION DOSE DELIVERED: 598.81mGy.cm Total DLP DATA REPOSITORY: All CT scans at this facility are submitted to the National Radiology Data Registry (NRDR) Dose Index Registry (DIR) with the [employer] ([employer]). RADIATION OPTIMIZATION: All CT scans at this facility use at least one of these dose optimization te chniques: automated exposure control; mA and/or kV adjustment per patient size (includes targeted exa ms where dose is matched to clinical indication); or iterative reconstruction.
--- NOTE | 2022-07-27 18:15 | DI.CT_ITS ---
Exam(s) CT HEAD WO EXAM: CT HEAD WO CLINICAL HISTORY: AMS, trouble swallowing/talking. TECHNIQUE: Imaging Protocol: Axial computed tomography images with coronal and sagittal reformatted images were created and reviewed COMPARISON: CT CT HEAD CERVICAL SPINE WO from 01/16/2022 FINDINGS: Ventricles and Extra axial spaces: Prominent atrophy. No abnormal ventricular dilatation. Hemorrhage: None. Cerebral parenchyma: Mild white matter changes small vessel disease. Midline shift: None. Brainstem/Cerebellum: Normal. Calvarium: Normal. Visualized Paranasal sinuses/Mastoids: Few inferior right mastoid air cells are opacified. No bony destruction. Soft Tissues: Unremarkable. IMPRESSION: Atrophy no acute intracranial process. RADIATION DOSE DELIVERED: 788.01mGy.cm Total DLP DATA REPOSITORY: All CT scans at this facility are submitted to the National Radiology Data Registry (NRDR) Dose Index Registry (DIR) with the [employer] ([employer]). RADIATION OPTIMIZATION: All CT scans at this facility use at least one of these dose optimization te chniques: automated exposure control; mA and/or kV adjustment per patient size (includes targeted exa ms where dose is matched to clinical indication); or iterative reconstruction.
[2022-07-27 18:36] LABS: Lactate 0.5 mmol/L (0.6-1.4)
[2022-07-27 18:38] LABS: Abs Immature Grans 0.01 10^3/uL (0.0-0.06); Absolute Basophil Count 0.01 10^3/uL (0.0-0.2); Absolute Eosinophil Count 0.26 10^3/uL (0.0-0.7); Absolute Lymphocyte Count 1.12 10^3/uL (1.2-3.4); Absolute Monocyte Count 0.58 10^3/uL (0.1-0.8); Absolute Neutrophil Count 2.86 10^3/uL (1.2-6.7); Basophils % 0.2; Eosinophils % 5.4; HCT 29.9 % (40.0-50.0); HGB 9.3 g/dL (13.5-17.5); Immature Grans % 0.2; Lymphocytes % 23.1; MCH 31.2 pg (27.0-33.0); MCHC 31.1 % (32.0-36.0); MCV 100 fL (80-95); MPV 10.5 fL (8.0-11.0); Neutrophils % 59.1; Platelet Count 103 10^3/uL (130-400); RBC 2.98 10^6/uL (4.36-5.78); RDW 12.7 % (11.8-14.1); RDW-SD 46.6 fL; WBC 4.84 10^3/uL (4.4-10.8)
[2022-07-27 18:54] LABS: ALT 15 U/L (16-63); AST 10 U/L (15-37); Albumin 3.4 g/dL (3.4-5.0); Alkaline Phosphatase 70 U/L (46-116); Anion Gap 1.9 mmol/L (3-11); BUN 28 mg/dL (7-18); Bilirubin, Total 0.7 mg/dL (0.2-1.0); CO2 33.1 mmol/L (21.0-32.0); CREATININE 1.8 mg/dL (0.70-1.30); Chloride 103 mmol/L (98-107); Estimated GFR 36.21 (mL/min/1.73m2); Glucose 109 mg/dL (74-106); Potassium 5.1 mmol/L (3.5-5.1); Sodium 138 mmol/L (136-145); Total Protein 6.6 g/dL (6.4-8.2)
[2022-07-27] MEDS: Normal Saline 1,000 ML 1000 ML IV (19:07)
[2022-07-27 19:08] LABS: Troponin I < 50 ng/L (<or=60)
--- NOTE | 2022-07-27 19:13 | ED.GENADUL_ITS ---
Discharge Plan Disposition Patient Disposition: Admit to [facility] Condition: Stable Discharge Details Clinical Impression: Altered mental status, Fracture of right femur, Intractable pain, Ambulatory dysfunction, Wheezing Admit Date/Time: 07/28/22 00:43 Admit Provider: Iglesia Woo Attending Provider: Iglesia Woo Primary Care Provider: Eufemia Arora ED Provider: Almita Marin Discharge Data Discharge Date/Time-TO BE ENTERED AT DEPARTURE: 07/28/22 01:44 Medical Decision Making <Samreen Mackey MD - Last Filed: 08/01/22 16:20> Dr. Ying ED physician chart from [facility] reviewed. This is from 07/24/2022. Patient fell and c/o hip pain. CT chest/qabd/pel with contrast revealed non displaced fracture right greater trochanter. Patient has mass around the right thyroid region which is unchanged over many months. Dr. Marin Please see separate progress note for my documentation. <Almita Marin DO - Last Filed: 07/29/22 04:10> Dr. Ying ED physician from [facility]. This is from 07/24/2022. Patient is. He complained of right knee is slightly worse. EXTR negative. CT chest with contrast revealed no displaced fracture right greater trochanteric. Patient left the treatment mass around the right thyroid region. Dr. Marin Please see separate progress note for my documentation. HPI <Samreen Mackey MD - Last Filed: 08/01/22 16:20> General Date/Time Provider Initiated Documentation: 07/27/22 17:57 . HPI Narrative: This 87-year-old male patient is brought in by his family with a multitude of complaints noted by the patient, his , and their neighbor; it is extremely difficult to put a story together. The patient was evidently seen in this emergency department on with a fractured femur and sent home. I suspect he was seen at a different hospital because there is no record of this in his old chart. Again, all involved are extremely poor historians. The p atient states that he did not feel well when he awoke this morning but cannot better characterize this. He did tell me that he began having chest pain around noon. Prior to this he was eating and having difficulty swallowing. He was able to swallow food and did not choke. According to his he was having some difficulty talking although it does not sound like dysphagia. It sounds more like he was responding quietly and not like he normally does. He is talking more now although very softly and I am having a hard time hearing him. His speech does sound clear. He denies changes in his vision or speech. There is no focal weakness or numbness but he has diffuse weakness. 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 Related Data Home Medications Medication Instructions Recorded Confirmed acetic acid 2 % ear solution 3 drp otic (ear) TID 10/26/20 lansoprazole 30 mg capsule,delayed 30 mg PO DAILY 10/26/20 release loperamide-simethicone 2 mg-125 mg 1 tab PO Q3H PRN 10/26/20 tablet mometasone 0.1 % topical cream 1 applic topical DAILY PRN itching 10/26/20 multivitamin 1 tab PO DAILY 10/26/20 peg 400-propylene glycol (PF) 0.4 1 drp ophthalmic (eye) BID-QID PRN 10/26/20 07/30/22 %-0.3 % eye drops in a dropperette (Systane (PF)) sertraline 100 mg tablet 100 mg PO 1XD 10/26/20 07/30/22 acetaminophen 500 mg tablet 1,000 mg PO Q8H #30 tabs 01/19/22 07/30/22 albuterol sulfate 90 mcg/actuation 2 puff inhalation Q4H PRN PRN 01/19/22 aerosol inhaler (Ventolin HFA) shortness of breath or wheezing #0 grams ascorbic acid (vitamin C) 500 mg 1,000 mg PO BID #30 tabs 01/19/22 tablet (Vitamin C) cholecalciferol (vitamin D3) 25 2,000 unit PO DAILY #14 tabs 01/19/22 mcg (1,000 unit) tablet cyanocobalamin (vitamin B-12) 500 1,000 mcg PO DAILY #60 tabs 01/19/22 mcg tablet (Vitamin B-12) gabapentin 400 mg capsule 400 mg PO DAILY #0 caps 01/19/22 07/30/22 ipratropium 20 mcg-albuterol 100 1 puff inhalation QID PRN PRN #0 10/30/22 mcg/actuation mist for inhalation grams (Combivent Respimat) lidocaine 5 % topical patch 1 patch topical DAILY #30 ea 01/19/22 metoprolol succinate 50 mg 50 mg PO DAILY #30 tabs 01/19/22 07/30/22 tablet,extended release 24 hr (Toprol XL) zinc sulfate 50 mg zinc (220 mg) 220 mg PO DAILY #7 caps 01/19/22 capsule (Zinc-220) sertraline 50 mg tablet 50 mg PO HS 07/30/22 07/30/22 fentanyl 12 mcg/hr transdermal 12 mcg transdermal Q72H #2 ea 07/31/22 patch tamsulosin 0.4 mg capsule (Flomax) 0.4 mg PO DAILY #0 caps 07/31/22 07/30/22 trazodone 100 mg tablet 200 mg PO QHS PRN #0 tabs 07/31/22 07/30/22 aspirin 81 mg capsule 81 mg PO DAILY #30 caps 08/01/22 atorvastatin 40 mg tablet 40 mg PO DAILY #30 tabs 08/01/22 Previous Rx's Medication Instructions Recorded acetaminophen 500 mg tablet 1,000 mg PO Q8H #30 tabs 01/19/22 albuterol sulfate 90 mcg/actuation 2 puff inhalation Q4H PRN PRN 01/19/22 aerosol inhaler (Ventolin HFA) shortness of breath or wheezing #0 grams ascorbic acid (vitamin C) 500 mg 1,000 mg PO BID #30 tabs 01/19/22 tablet (Vitamin C) cholecalciferol (vitamin D3) 25 2,000 unit PO DAILY #14 tabs 01/19/22 mcg (1,000 unit) tablet cyanocobalamin (vitamin B-12) 500 1,000 mcg PO DAILY #60 tabs 01/19/22 mcg tablet (Vitamin B-12) gabapentin 400 mg capsule 400 mg PO DAILY #0 caps 01/19/22 ipratropium 20 mcg-albuterol 100 1 puff inhalation QID PRN PRN #0 01/19/22 mcg/actuation mist for inhalation grams (Combivent Respimat) lidocaine 5 % topical patch 1 patch topical DAILY #30 ea 01/19/22 metoprolol succinate 50 mg 50 mg PO DAILY #30 tabs 01/19/22 tablet,extended release 24 hr (Toprol XL) zinc sulfate 50 mg zinc (220 mg) 220 mg PO DAILY #7 caps 01/19/22 capsule (Zinc-220) fentanyl 12 mcg/hr transdermal 12 mcg transdermal Q72H #2 ea 07/31/22 patch tamsulosin 0.4 mg capsule (Flomax) 0.4 mg PO DAILY #0 caps 07/31/22 trazodone 100 mg tablet 200 mg PO QHS PRN #0 tabs 07/31/22 aspirin 81 mg capsule 81 mg PO DAILY #30 caps 08/01/22 atorvastatin 40 mg tablet 40 mg PO DAILY #30 tabs 08/01/22 Allergies Allergy/AdvReac Type Severity Reaction Status Date / Time hydromorphone [From Dilaudid] Allergy Verified 01/16/22 16:20 promethazine [From Phenergan] Allergy Verified 01/16/22 16:20 General Stated Complaint: CVA/TIA MISTY: 3 Review of Systems <Samreen Mackey MD - Last Filed: 08/01/22 16:20> Narrative: Patient has had no fever or shaking chills and no URI symptoms. He has had no definitive shortness of breath. There is no abdominal pain, nausea, vomiting, or diarrhea. He has not complained of dysuria. There is no focal weakness or numbness. His right lower extremity shortened and externally rotated due to reported fractured femur. The says that they sent the patient home from the ER. I suspect this was [place]. The patient denies headache but again is an extremely poor historian. He will that overall his review of systems is quite unreliable. Unobtainable due to (UTO good ROS due to poor historians. ) Constitutional Constitutional: Reports as per HPI, Denies chills, Denies fever(s) and Denies headache(s) Eyes Eyes: Denies blurry vision and Reports other (no redness) ENT Ears, Nose, Mouth, and Throat: Denies dizziness, Denies otalgia, Denies headache(s), Denies nasal congestion, Denies nasal discharge, Denies neck pain and Denies odynophagia Cardiovascular Cardiovascular: Denies chest pain, Denies palpitations and Denies dyspnea Respiratory Respiratory: Denies cough and Denies dyspnea Gastrointestinal Gastrointestinal: Denies abdominal pain, Denies diarrhea, Denies nausea, Denies odynophagia and Denies vomiting Genitourinary Genitourinary: Denies difficulty urinating and Denies dysuria Musculoskeletal Musculoskeletal: Denies myalgias, Denies muscle weakness, Denies neck pain and Denies numbness Integumentary/Breasts Skin/Breast: Denies erythema and Denies rash Neurologic Neurologic: Denies dizziness, Denies headache(s) and Denies numbness Endocrine Endocrine: Denies palpitations PFSH <Samreen Mackey MD - Last Filed: 08/01/22 16:20> All Active Problems (Updated 07/31/22 @ 11:55 by Estefania Joiner MD) Acute on chronic renal failure (Acute) Discharge planning issues (Acute) Peripheral neuropathy (Acute) Mild cognitive impairment (Acute) Advanced care planning/counseling discussion (Acute) Palliative care patient (Acute) Periprosthetic fracture around internal prosthetic right hip joint (Acute) Altered mental status (Acute) Fracture of right femur (Acute) Intractable pain (Acute) Ambulatory dysfunction (Acute) Wheezing (Acute) Multiple fractures of ribs of right side (Acute) Musculoskeletal pain of right upper extremity (Acute) Closed rib fracture (Acute) COVID-19 (Acute) Urinary frequency (Acute) Depression (Chronic) Anemia (Chronic) Hypertension (Chronic) DJD (degenerative joint disease) (Chronic) Sensorineural hearing loss (SNHL) of both ears (Acute) Ear itching (Acute) 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) Otorrhea of both ears (Acute 11/03/13) Otitis externa (Acute 11/03/13) Otalgia (Acute 11/18/13) 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, 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) Medical History Anxiety Cervical vertebral fracture s/p fall 01/17/17 CHF (congestive heart failure) Chronic renal insufficiency Chronic respiratory failure with hypoxia Conductive hearing loss in left ear (06/08/14) Dementia Esophageal reflux Hyperlipidemia Hypertension IBS (irritable bowel syndrome) Insomnia Kidney stones Migraine headache Multiple falls Multiple rib fractures Osteoarthritis Restless leg syndrome Thyroid mass Vertebral compression fracture Surgical History History of knee replacement History of right hip replacement Family History Father Stroke Mother Stroke Hypertension Pneumonia Sister Breast cancer Social History Smoking/Tobacco Use Status: Former Tobacco Use Quit Date: 03/23/1962 Smoking risk assessment performed?: Yes Alcohol Intake: current Alcohol Intake frequency: holidays/special occasions only Drug use: Never Household members: spouse 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 What is your relationship status?: Panel score (0-1 are the most socially isolated patients): 1 Do you feel safe at home: Yes Do you feel safe in your relationship?: Yes Exam <Samreen Mackey MD - Last Filed: 08/01/22 16:20> Const General: well developed and well groomed Nutritional Appearance: well nourished Orientation: other (Drowsy appearing, wakes to verbal stimuli, speaks slowly) Limitations: altered mental status HENMT Head: normocephalic and atraumatic Ears: external ears normal Mouth: oropharynx normal and moist mucous membranes abnormal (dry) Throat: posterior oropharynx normal Eyes Conjunctivae: conjunctivae normal Pupils: PERRL and accommodation normal EOM: EOM intact bilaterally Neck Neck: full ROM and supple Chest Chest: normal inspection of the chest Resp Effort & Inspection: normal respiratory effort Auscultation: clear to auscultation bilaterally Cardio Rate: regular rate Rhythm: regular rhythm Heart Sounds: no murmurs and no rubs GI Inspection: normal to inspection Palpation: soft, nontender and other (non distended) Auscultation: normal bowel sounds Skin General skin exam: no rashes or lesions noted and other (pink, warm, dry) Neuro General: patient alert and patient awake Cranial Nerves: CN's II-XI intact bilaterally Speech: speech normal (though slow and quiet) Gait: other (Not assessed) Motor: strength 5/5 throughout and other (SILVER) Sensory Exam: no sensory deficits noted Coordination: other (FNF and Romberg deferred due to somnolence and weakness) Pupils: Normal pupillary reactivity/response: bilateral and Dilated: bilateral Extrem General: normal to inspection, full ROM and pedal edema present Psych Mental Status: mental status grossly normal Speech and Movement: speech and movement normal Affect: normal affect Course <Samreen Mackey MD - Last Filed: 08/01/22 16:20> Vital Signs Vital signs: Vital Signs Pulse 64 07/27/22 17:47 Blood Pressure 173/78 H 07/27/22 17:47 Pulse Oximetry 95 07/27/22 17:47 Pulse 64 07/27/22 17:47 Blood Pressure 173/78 H 07/27/22 17:47 Blood Pressure Position Sitting 07/27/22 17:47 Pulse Oximetry 95 07/27/22 17:47 Oxygen Delivery Method Nasal Cannula 07/27/22 17:47 Oxygen Flow Rate 2 07/27/22 17:47 Pain Level 8 07/27/22 17:47 Lab/Test Results Lab/Test Results: Laboratory Tests Labs: Patient's H&H are 9.3 and 30 which are about his baseline. Platelets today are 103 which are down from 158 last January. Patient's BUN and creatinine today are 28 and 1.8 with a GFR of 36. His BUN and creatinine last fall were 21 and 2.1. He does appear dry. The remainder of his comprehensive metabolic panel is unremarkable. EKG: Normal sinus rhythm 60, first-degree AVB, RBBB, no clear change vs 01/17/22. Range/Units 07/27/22 07/27/22 07/27/22 18:31 18:31 18:31 WBC (4.4-10.8) 10^3/uL 4.84 RBC (4.36-5.78) 10^6/uL 2.98 L Hgb (13.5-17.5) g/dL 9.3 L Hct (40.0-50.0) % 29.9 L MCV (80-95) fL 100 H MCH (27.0-33.0) pg 31.2 MCHC (32.0-36.0) % 31.1 L RDW (11.8-14.1) % 12.7 Plt Count (130-400) 10^3/uL 103 L MPV (8.0-11.0) fL 10.5 Immature Gran % 0.2 Neutrophils % 59.1 Lymphocytes % 23.1 Monocytes % 12.0 Eosinophils % 5.4 Basophils % 0.2 Nucleated RBC % (0.0-0.3) % 0.0 Absolute Neutrophils (1.2-6.7) 10^3/uL 2.86 Absolute Lymphocytes (1.2-3.4) 10^3/uL 1.12 L Absolute Monocytes (0.1-0.8) 10^3/uL 0.58 Absolute Eosinophils (0.0-0.7) 10^3/uL 0.26 Absolute Basophils (0.0-0.2) 10^3/uL 0.01 VBG Lactate (0.6-1.4) mmol/L 0.5 L Sodium (136-145) mmol/L 138 Potassium (3.5-5.1) mmol/L 5.1 Chloride (98-107) mmol/L 103 Carbon Dioxide (21.0-32.0) mmol/L 33.1 H Anion Gap (3-11) mmol/L 1.9 L BUN (7-18) mg/dL 28 H Creatinine (0.70-1.30) mg/dL 1.8 H Est GFR (CKD-EPI 2020) (mL/min/1.73m2) 36.21 Glucose (74-106) mg/dL 109 H Calcium (8.5-10.1) mg/dL 9.0 Total Bilirubin (0.2-1.0) mg/dL 0.7 AST (15-37) U/L 10 L ALT (16-63) U/L 15 L Alkaline Phosphatase (46-116) U/L 70 Total Protein (6.4-8.2) g/dL 6.6 Albumin (3.4-5.0) g/dL 3.4 Sign Out <Samreen Mackey MD - Last Filed: 08/01/22 16:20> Sign Out Data: Sign Out Comment: Case signed out to Dr. Marin at 8 PM. This 87-year-old male patient is an extremely poor historian as he is his and neighbor. He definitively today admits to malaise, chest pain, weakness, and difficulty speaking. He reportedly has a hip or femur fracture from this past . With his chest pain we are obtaining an EKG, CT PE protocol, as well as serial troponins. feels like the patient may have had a stroke and a CT head without is also pending. We are repeating the patient's hip and femur films. VBG is back with a pH of 7.3 and PCO2 of 65. Patient's anemia appears baseline. BUN 28 and CR 1.8 today with GFR of 36. We are hydrating him as he looks dry and has had IV contrast. Urinalysis is still this. Last updated by Samreen Mackey MD at 07/27/22 20:06
--- NOTE | 2022-07-27 19:29 | NUR.NOTE ---
Nursing Note: Family at bedside stated that patients symptoms began at noon today. Pt felt weak, was unable to lift right arm, slurred speech, and right sided facial droop. Family notes improvement since onset of symptoms. NIHSS performed @1930, score of 7. - 1B - unable to answer questions +1 - 4 - Facial droop, right side +2 - 5B - Right arm motor drift +1 - 8 - Decreased sensation, right side (face, arm, leg) +1 - 9 - Moderate aphasia, difficulty putting words together, but able to understand +1 - 10 - Moderate slurring of speech +1 Total score: 7
[2022-07-27] MEDS: Omnipaque 350 MG/ML 100 ML BTL IJ (19:40)
[2022-07-27] MEDS: Normal Saline Flush 10 ML SYR IVP (19:42)
[2022-07-27] MEDS: Normal Saline - Diluent 50 ML VIAL IJ (19:42)
--- NOTE | 2022-07-27 19:45 | DI.RAD_ITS ---
Exam(s) XR HIP RT COMPLETE AP PELVIS XR FEMUR RT EXAM: XR HIP RT COMPLETE AP PELVIS INDICATION: reported pain and fx. COMPARISON: CT CT CHEST/ABD/PEL WO from 02/13/2022 CR XR HIP RT MIN 2V AND PELVIS from 07/24/2022 CR,XR XR FEMUR RT from 07/27/2022 TECHNIQUE: 2D digital imaging was performed. Three views of the pelvis. AP and lateral views of th e femur. FINDINGS: Bilateral hip prostheses are noted. There has been no change in the fracture of the intertrochanteric region of the right proximal femur. No additional acute fractures are identified. Old fracture see n right inferior pubic ramus. Right knee prosthesis.. IMPRESSION: No change in appearance of intertrochanteric fracture. No new fractures. Hip and knee prostheses unchanged. DATA REPOSITORY: RADIATION DOSE DELIVERED:
[2022-07-27 19:48] LABS: BE (Venous) 5 mmol/L (-2-3); HCO3 (Venous) 32 mmol/L (23-28); O2 Sat (Venous) 59 %; TCO2 (Venous) 31 mmol/L (24-29); pO2 (Venous) 31 mmHg
[2022-07-27 19:50] LABS: pCO2 (Venous) 65 mmHg (41-51)
--- NOTE | 2022-07-27 20:21 | DI.VRAD_ITS ---
PROCEDURE INFORMATION: Exam: CT Head Without Contrast Exam date and time: 07/27/2022 7:47 PM Age: 87 years old Clinical indication: Altered mental status/memory loss; Confusion or disorientation; Patient HX: Cp, recent femur FX, AMS TECHNIQUE: Imaging protocol: Computed tomography of the head without contrast. Radiation optimization: All CT scans at this facility use at least one of these dose optimization techniques: automated exposure control; mA and/or kV adjustment per patient size (includes targeted exams where dose is matched to clinical indication); or iterative reconstruction. COMPARISON: CT HEAD CERVICAL SPINE WO 01/16/2022 5:20 PM FINDINGS: Brain: No acute intracranial hemorrhage, mass-effect, midline shift, or extra-axial collection is seen. The still white matter differentiation appears preserved. There is global parenchymal volume loss, as seen previously. Cerebral ventricles: The ventricular system and basilar cisterns appear prominent but appropriate in size and configuration given the degree of parenchymal volume loss. Paranasal sinuses: The paranasal sinuses appear well aerated. No air-fluid levels are seen. Mastoid air cells: There is opacification of a few inferior right mastoid air cells, nonspecific. The left mastoid air cells appear clear. Auditory system: The middle ear cavities appear clear. Orbital cavities: The globes and intraorbital structures appear grossly intact. Bones/joints: The bony calvarium appears intact. No depressed skull fracture is seen. Soft tissues: No significant scalp lesion is seen. IMPRESSION: 1. No acute intracranial abnormality seen. 2. Global parenchymal volume loss, as seen previously. Dictated and Authenticated by: Jared Rascon MD. Ordering:LAURA Jolley MD
--- NOTE | 2022-07-27 20:36 | DI.VRAD_ITS ---
PROCEDURE INFORMATION: Exam: CTA Chest With Contrast Exam date and time: 07/27/2022 7:54 PM Age: 87 years old Clinical indication: Pain; Other: Cp, recent femur FX, AMS TECHNIQUE: Imaging protocol: Computed tomographic angiography of the chest with contrast. 3D rendering (Not supervised by radiologist): MIP and/or 3D reconstructed images were created by the technologist. Radiation optimization: All CT scans at this facility use at least one of these dose optimization techniques: automated exposure control; mA and/or kV adjustment per patient size (includes targeted exams where dose is matched to clinical indication); or iterative reconstruction. Contrast material: OMNIPAQUE 350; Contrast volume: 100 ml; Contrast route: INTRAVENOUS (IV); COMPARISON: CT CHEST/ABD/PEL WO 02/13/2022 10:34 PM FINDINGS: Pulmonary arteries: Normal. No pulmonary emboli. Aorta: Unremarkable. No aortic aneurysm. No aortic dissection. 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 Lungs: Mild bibasilar atelectasis. There is mild bibasilar atelectasis, right worse than left. Pleural spaces: Unremarkable. No pneumothorax. No pleural effusion. Heart: Unremarkable. No cardiomegaly. No pericardial effusion. Lymph nodes: Slightly low-density left retroperitoneal lymph node again noted at the left renal hilar level. Gallbladder and bile ducts: Status post cholecystectomy. Kidneys and ureters: Bilateral renal cysts. Bones/joints: There are several compression deformities, unchanged from previous study. Old right-sided rib fractures present. Soft tissues: Unremarkable. Other findings: Moderate atherosclerotic change again noted in the vasculature. IMPRESSION: No evidence for pulmonary embolus. Dictated and Authenticated by: Cortney Spencer MD. Ordering:LAURA Jolley MD
--- NOTE | 2022-07-27 21:05 | DI.VRAD_ITS ---
PROCEDURE INFORMATION: Exam: XR Right Hip Exam date and time: 07/27/2022 8:07 PM Age: 87 years old Clinical indication: Injury or trauma; Blunt trauma (contusions or hematomas); Right; Hip and pelvic region; Injury date: 07/24/22; Injury details: Unknown injury, PT report femur FX 2 days ago; Prior surgery; Surgery date: 6+ months; Surgery type: Hip replacement, unknown time; Additional info: Poor historian TECHNIQUE: Imaging protocol: Radiologic exam of the right hip. Views: 2 or 3 views hip with pelvis when performed. COMPARISON: CR XR HIP RT MIN 2V AND PELVIS 07/24/2022 10:06 AM, CT abdomen and pelvis January 16, 2022. FINDINGS: Bones/joints: AP views of the pelvis are submitted with a coned-down lateral view of the right hip. There are bilateral hip arthroplasty prostheses in situ. There is no evidence of hardware breakage or loosening. There is irregular linear lucency through the proximal right femur in the region of the greater trochanter with a 4 mm lateral cortical step-off along the proximal shaft which is also seen on the recent comparison radiographs from July 24, 2022 but appears new since the comparison CT exam from January 16 2022. An acute fracture is suspected. Soft tissues: Within the limits of the exam, no gross soft tissue abnormality is demonstrated. IMPRESSION: 1. Bilateral hip arthroplasty prostheses in situ. No evidence of hardware breakage or loosening. 2. Irregular linear lucency through the proximal right femur in the region of the greater trochanter with a 4 mm lateral cortical step-off along the proximal shaft in keeping with an acute proximal right femur fracture, also seen on the recent comparison radiographs from July 24, 2022 but new since the comparison CT exam from January 16, 2022. Dictated and Authenticated by: Jared Rascon MD. Ordering:LAURA Jolley MD
--- NOTE | 2022-07-27 21:08 | DI.VRAD_ITS ---
PROCEDURE INFORMATION: Exam: XR Right Femur Exam date and time: 07/27/2022 8:09 PM Age: 87 years old Clinical indication: Pain; Thigh; Right; Prior surgery; Surgery date: 6+ months; Surgery type: Hip replacement; Additional info: Poor historian TECHNIQUE: Imaging protocol: Radiologic exam of the right femur. Views: 2 views. COMPARISON: CR XR HIP RT COMPLETE AP PELVIS 07/27/2022 8:07 PM FINDINGS: Bones/joints: Frontal and lateral views of the right femur are submitted. Arthroplasty prostheses are present at the right hip and the right knee. Irregular linear lucency is redemonstrated through the proximal right femur adjacent to the proximal aspect of the femoral stem component with a 4 mm cortical step-off along the lateral margin of the proximal femoral shaft, also seen on the recent radiographs from July 24, 2022 but new since a comparison CT exam from January 16, 2022. Soft tissues: No gross soft tissue abnormality is seen. IMPRESSION: 1. Prior right hip and right knee arthroplasties. 2. Acute fracture through the proximal right femur, as described, also seen on the recent comparison radiographs from Jul 24 2022 but new since a comparison CT exam from January 16, 2022. Dictated and Authenticated by: Jared Rascon MD. Ordering:LAURA Jolley MD
[2022-07-27 21:18] LABS: Bilirubin Negative (Negative); Blood Negative (Negative); Clarity Clear (Clear); Glucose Negative (Negative); Ketones Negative (Negative); Leukocyte Esterase Negative (Negative); Nitrite Negative (Negative); Urobilinogen 0.2 mg/dL (Up to 0.2)
[2022-07-27 22:17] LABS: Troponin I < 50 ng/L (<or=60)
--- NOTE | 2022-07-27 23:09 | W.EDPROG ---
Date of service: 07/27/22 Time of Service: 20:00 Medical Decision Making 1999 --please see Dr. Mackey's note for initial presentation, exam and plan. Case endorsed to follow-up on imaging and likely plan for admission for possible report of altered mental status in setting of recent femur fracture. 2299 --long delay in reevaluation and disposition due to high volume and acuity in the ED. Labs and imaging reviewed. Normal white blood cell count. Hemoglobin 9.3 which is down trended from 10.6 in January 2022. VBG noted pH of 7.3, PCO2 65, bicarb 32. Creatinine 1.8 which is better than his recent baseline. BNP 1135, no previous result to compare. Urinalysis negative. Trope negative x2. CT head negative for acute findings. CT chest negative for PE. X-ray right hip pelvis and femur note a proximal right femur fracture. 0030 -- Patient is an 87-year-old male with a history of dementia, hypertension, hyperlipidemia, CHF chronically on 2 L nasal cannula oxygen with history of imbalance issues requiring use of a walker, history of bilateral hip replacements presented for an episode of confusion and seeming out of it per at noon today. A neighbor endorses at 2 PM she noted a left facial droop which then resolved. states that patient has memory issues at baseline but would normally know his location and be able to have a conversation. She states he was staring off today and appeared slumped over and incoherent . She reports that patient was seen 3 days ago at [facility] ED for a fall in which he got out of bed and his foot got caught on the blanket and he fell onto his right hip. She states he was diagnosed with a right femur fracture and discharged to home with PT evaluation. states that patient has not walked at all for the past 3 days due to pain. She states she has been giving him Tylenol and tramadol as needed. She states he has not eaten much today and did complain of nausea. Neighbor endorses that patient appeared to be wheezing today. now reports that patient appears much more like his baseline. Patient is oriented x2 which is his baseline. He denies any shortness of breath but does have expiratory wheezing throughout. He has nonpitting bilateral lower extremity edema and his right is flexed and externally rotated but with intact distal pulses. He otherwise has no focal deficits on exam and appears nontoxic. His abdomen is soft and nontender. Discussed with , neighbor and patient at bedside --as patient's mental status is improving, presentation could have been consistent with a TIA; possibilities include syncope, dehydration, generalized weakness. Recommend admission for MRI brain tomorrow. Discussed that wheezing can be secondary to airway inflammation or fluid. Considering his history of congestive heart failure, will obtain an BNP however reassuring that his oxygen saturation is 98% on his baseline 2 L and he has no acute complaint of shortness of breath. states that he had previously been on diuretics so he may need to be restarted on his diuretics or consider an echo. As for his right femur fracture, will attempt to contact Dr. Luna for guidance whether okay for patient to stay here. Discussed with Dr. Luna -- he reports this injury is usually not operative and can be managed with PT and pain control. Case discussed with hospitalist who accepts patient for admission. Plan will be for likely MRI brain tomorrow and likely PT evaluation and pain control for right hip. Medical Records Medical records reviewed: Yes I reviewed the patient's medical records. Imaging Data Radiologic Study: Radiologist's impression: CT Head Without Contrast Exam date and time: 07/27/2022 7:47 PM Age: 87 years old Clinical indication: Altered mental status/memory loss; Confusion or disorientation; Patient HX: Cp, recent femur FX, AMS TECHNIQUE: Imaging protocol: Computed tomography of the head without contrast. Radiation optimization: All CT scans at this facility use at least one of these dose optimization techniques: automated exposure control; mA and/or kV adjustment per patient size (includes targeted exams where dose is matched to clinical indication); or iterative reconstruction. COMPARISON: CT HEAD CERVICAL SPINE WO 01/16/2022 5:20 PM FINDINGS: Brain: No acute intracranial hemorrhage, mass-effect, midline shift, or extra-axial collection is seen. The still white matter differentiation appears preserved. There is global parenchymal volume loss, as seen previously. Cerebral ventricles: The ventricular system and basilar cisterns appear prominent but appropriate in size and configuration given the degree of parenchymal volume loss. Paranasal sinuses: The paranasal sinuses appear well aerated. No air-fluid levels are seen. Mastoid air cells: There is opacification of a few inferior right mastoid air cells, nonspecific. The left mastoid air cells appear clear. Auditory system: The middle ear cavities appear clear. Orbital cavities: The globes and intraorbital structures appear grossly intact. Bones/joints: The bony calvarium appears intact. No depressed skull fracture is seen. Soft tissues: No significant scalp lesion is seen. IMPRESSION: 1. ? No acute intracranial abnormality seen. 2. ? Global parenchymal volume loss, as seen previously. CTA Chest With Contrast Exam date and time: 07/27/2022 7:54 PM Age: 87 years old Clinical indication: Pain; Other: Cp, recent femur FX, AMS TECHNIQUE: Imaging protocol: Computed tomographic angiography of the chest with contrast. 3D rendering (Not supervised by radiologist): MIP and/or 3D reconstructed images were created by the technologist. Radiation optimization: All CT scans at this facility use at least one of these dose optimization techniques: automated exposure control; mA and/or kV adjustment per patient size (includes targeted exams where dose is matched to clinical indication); or iterative reconstruction. Contrast material: OMNIPAQUE 350; Contrast volume: 100 ml; Contrast route: INTRAVENOUS (IV);? COMPARISON: CT CHEST/ABD/PEL WO 02/13/2022 10:34 PM FINDINGS: Pulmonary arteries: Normal. No pulmonary emboli. Aorta: Unremarkable. No aortic aneurysm. No aortic dissection. 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 Lungs: Mild bibasilar atelectasis. There is mild bibasilar atelectasis, right worse than left. Pleural spaces: Unremarkable. No pneumothorax. No pleural effusion. Heart: Unremarkable. No cardiomegaly. No pericardial effusion. Lymph nodes: Slightly low-density left retroperitoneal lymph node again noted at the left renal hilar level. Gallbladder and bile ducts: Status post cholecystectomy. Kidneys and ureters: Bilateral renal cysts. Bones/joints: There are several compression deformities, unchanged from previous study. Old right-sided rib fractures present. Soft tissues: Unremarkable. Other findings: Moderate atherosclerotic change again noted in the vasculature. IMPRESSION: No evidence for pulmonary embolus. XR Right Hip Exam date and time: 07/27/2022 8:07 PM Age: 87 years old Clinical indication: Injury or trauma; Blunt trauma (contusions or hematomas); Right; Hip and pelvic region; Injury date: 07/24/22; Injury details: Unknown injury, PT report femur FX 2 days ago; Prior surgery; Surgery date: 6+ months; Surgery type: Hip replacement, unknown time; Additional info: Poor historian TECHNIQUE: Imaging protocol: Radiologic exam of the right hip. Views: 2 or 3 views hip with pelvis when performed. COMPARISON: CR XR HIP RT MIN 2V AND PELVIS 07/24/2022 10:06 AM, CT abdomen and pelvis January 16, 2022. FINDINGS: Bones/joints: AP views of the pelvis are submitted with a coned-down lateral view of the right hip. There are bilateral hip arthroplasty prostheses in situ. There is no evidence of hardware breakage or loosening. There is irregular linear lucency through the proximal right femur in the region of the greater trochanter with a 4 mm lateral cortical step-off along the proximal shaft which is also seen on the recent comparison radiographs from July 24, 2022 but appears new since the comparison CT exam from January 16 2022. An acute fracture is suspected. Soft tissues: Within the limits of the exam, no gross soft tissue abnormality is demonstrated. IMPRESSION: 1. ? Bilateral hip arthroplasty prostheses in situ. No evidence of hardware breakage or loosening. 2. ? Irregular linear lucency through the proximal right femur in the region of the greater trochanter with a 4 mm lateral cortical step-off along the proximal shaft in keeping with an acute proximal right femur fracture, also seen on the recent comparison radiographs from July 24, 2022 but new since the comparison CT exam from January 16, 2022. XR Right Femur Exam date and time: 07/27/2022 8:09 PM Age: 87 years old Clinical indication: Pain; Thigh; Right; Prior surgery; Surgery date: 6+ months; Surgery type: Hip replacement; Additional info: Poor historian TECHNIQUE: Imaging protocol: Radiologic exam of the right femur. Views: 2 views. COMPARISON: CR XR HIP RT COMPLETE AP PELVIS 07/27/2022 8:07 PM FINDINGS: Bones/joints: Frontal and lateral views of the right femur are submitted. Arthroplasty prostheses are present at the right hip and the right knee. Irregular linear lucency is redemonstrated through the proximal right femur adjacent to the proximal aspect of the femoral stem component with a 4 mm cortical step-off along the lateral margin of the proximal femoral shaft, also seen on the recent radiographs from July 24, 2022 but new since a comparison CT exam from January 16, 2022. Soft tissues: No gross soft tissue abnormality is seen. IMPRESSION: 1. ? Prior right hip and right knee arthroplasties. 2. ? Acute fracture through the proximal right femur, as described, also seen on the recent comparison radiographs from Jul 24 2022 but new since a comparison CT exam from January 16, 2022. Lab Data Lab results reviewed: Yes I reviewed the patient's lab results. Labs: Laboratory Tests Range/Units 07/27/22 07/27/22 07/27/22 18:30 18:31 18:31 WBC (4.4-10.8) 10^3/uL 4.84 RBC (4.36-5.78) 10^6/uL 2.98 L Hgb (13.5-17.5) g/dL 9.3 L Hct (40.0-50.0) % 29.9 L MCV (80-95) fL 100 H MCH (27.0-33.0) pg 31.2 MCHC (32.0-36.0) % 31.1 L RDW (11.8-14.1) % 12.7 Plt Count (130-400) 10^3/uL 103 L MPV (8.0-11.0) fL 10.5 Immature Gran % 0.2 Neutrophils % 59.1 Lymphocytes % 23.1 Monocytes % 12.0 Eosinophils % 5.4 Basophils % 0.2 Nucleated RBC % (0.0-0.3) % 0.0 Absolute Neutrophils (1.2-6.7) 10^3/uL 2.86 Absolute Lymphocytes (1.2-3.4) 10^3/uL 1.12 L Absolute Monocytes (0.1-0.8) 10^3/uL 0.58 Absolute Eosinophils (0.0-0.7) 10^3/uL 0.26 Absolute Basophils (0.0-0.2) 10^3/uL 0.01 VBG pH (7.31-7.41) VBG pCO2 (41-51) mmHg VBG pO2 mmHg VBG HCO3 (23-28) mmol/L VBG Total CO2 (24-29) mmol/L VBG O2 Saturation % VBG Base Excess (-2-3) mmol/L VBG Lactate (0.6-1.4) mmol/L Sodium (136-145) mmol/L 138 Potassium (3.5-5.1) mmol/L 5.1 Chloride (98-107) mmol/L 103 Carbon Dioxide (21.0-32.0) mmol/L 33.1 H Anion Gap (3-11) mmol/L 1.9 L BUN (7-18) mg/dL 28 H Creatinine (0.70-1.30) mg/dL 1.8 H Est GFR (CKD-EPI 2020) (mL/min/1.73m2) 36.21 Glucose (74-106) mg/dL 109 H Calcium (8.5-10.1) mg/dL 9.0 Total Bilirubin (0.2-1.0) mg/dL 0.7 AST (15-37) U/L 10 L ALT (16-63) U/L 15 L Alkaline Phosphatase (46-116) U/L 70 Troponin I (<or=60) ng/L NT-Pro-B Natriuret Pep (<300) pg/mL 1135 H Total Protein (6.4-8.2) g/dL 6.6 Albumin (3.4-5.0) g/dL 3.4 TSH (0.36-3.74) uIU/mL Urine Color (Yellow) Urine Clarity (Clear) Urine pH (5-8) Ur Specific [place] (1.005-1.025) Urine Protein (Negative) mg/dL Urine Ketones (Negative) mg/dL Urine Blood (Negative) Urine Nitrite (Negative) Urine Bilirubin (Negative) Urine Urobilinogen (Up to 0.2) mg/dL Ur Leukocyte Esterase (Negative) Urine Glucose (Negative) mg/dL Range/Units 07/27/22 07/27/22 07/27/22 18:31 18:31 18:31 WBC (4.4-10.8) 10^3/uL RBC (4.36-5.78) 10^6/uL Hgb (13.5-17.5) g/dL Hct (40.0-50.0) % MCV (80-95) fL MCH (27.0-33.0) pg MCHC (32.0-36.0) % RDW (11.8-14.1) % Plt Count (130-400) 10^3/uL MPV (8.0-11.0) fL Immature Gran % Neutrophils % Lymphocytes % Monocytes % Eosinophils % Basophils % Nucleated RBC % (0.0-0.3) % Absolute Neutrophils (1.2-6.7) 10^3/uL Absolute Lymphocytes (1.2-3.4) 10^3/uL Absolute Monocytes (0.1-0.8) 10^3/uL Absolute Eosinophils (0.0-0.7) 10^3/uL Absolute Basophils (0.0-0.2) 10^3/uL VBG pH (7.31-7.41) VBG pCO2 (41-51) mmHg VBG pO2 mmHg VBG HCO3 (23-28) mmol/L VBG Total CO2 (24-29) mmol/L VBG O2 Saturation % VBG Base Excess (-2-3) mmol/L VBG Lactate (0.6-1.4) mmol/L 0.5 L Sodium (136-145) mmol/L Potassium (3.5-5.1) mmol/L Chloride (98-107) mmol/L Carbon Dioxide (21.0-32.0) mmol/L Anion Gap (3-11) mmol/L BUN (7-18) mg/dL Creatinine (0.70-1.30) mg/dL Est GFR (CKD-EPI 2020) (mL/min/1.73m2) Glucose (74-106) mg/dL Calcium (8.5-10.1) mg/dL Total Bilirubin (0.2-1.0) mg/dL AST (15-37) U/L ALT (16-63) U/L Alkaline Phosphatase (46-116) U/L Troponin I (<or=60) ng/L < 50 NT-Pro-B Natriuret Pep (<300) pg/mL Total Protein (6.4-8.2) g/dL Albumin (3.4-5.0) g/dL TSH (0.36-3.74) uIU/mL 0.60 Urine Color (Yellow) Urine Clarity (Clear) Urine pH (5-8) Ur Specific Jasper (1.005-1.025) Urine Protein (Negative) mg/dL Urine Ketones (Negative) mg/dL Urine Blood (Negative) Urine Nitrite (Negative) Urine Bilirubin (Negative) Urine Urobilinogen (Up to 0.2) mg/dL Ur Leukocyte Esterase (Negative) Urine Glucose (Negative) mg/dL Range/Units 07/27/22 07/27/22 07/27/22 19:40 21:00 21:45 WBC (4.4-10.8) 10^3/uL RBC (4.36-5.78) 10^6/uL Hgb (13.5-17.5) g/dL Hct (40.0-50.0) % MCV (80-95) fL MCH (27.0-33.0) pg MCHC (32.0-36.0) % RDW (11.8-14.1) % Plt Count (130-400) 10^3/uL MPV (8.0-11.0) fL Immature Gran % Neutrophils % Lymphocytes % Monocytes % Eosinophils % Basophils % Nucleated RBC % (0.0-0.3) % Absolute Neutrophils (1.2-6.7) 10^3/uL Absolute Lymphocytes (1.2-3.4) 10^3/uL Absolute Monocytes (0.1-0.8) 10^3/uL Absolute Eosinophils (0.0-0.7) 10^3/uL Absolute Basophils (0.0-0.2) 10^3/uL VBG pH (7.31-7.41) 7.30 L VBG pCO2 (41-51) mmHg 65 H* VBG pO2 mmHg 31 VBG HCO3 (23-28) mmol/L 32 H VBG Total CO2 (24-29) mmol/L 31 H VBG O2 Saturation % 59 VBG Base Excess (-2-3) mmol/L 5 H VBG Lactate (0.6-1.4) mmol/L Sodium (136-145) mmol/L Potassium (3.5-5.1) mmol/L Chloride (98-107) mmol/L Carbon Dioxide (21.0-32.0) mmol/L Anion Gap (3-11) mmol/L BUN (7-18) mg/dL Creatinine (0.70-1.30) mg/dL Est GFR (CKD-EPI 2020) (mL/min/1.73m2) Glucose (74-106) mg/dL Calcium (8.5-10.1) mg/dL Total Bilirubin (0.2-1.0) mg/dL AST (15-37) U/L ALT (16-63) U/L Alkaline Phosphatase (46-116) U/L Troponin I (<or=60) ng/L < 50 NT-Pro-B Natriuret Pep (<300) pg/mL Total Protein (6.4-8.2) g/dL Albumin (3.4-5.0) g/dL TSH (0.36-3.74) uIU/mL Urine Color (Yellow) Yellow Urine Clarity (Clear) Clear Urine pH (5-8) 6.0 Ur Specific Jasper (1.005-1.025) 1.010 Urine Protein (Negative) mg/dL Negative Urine Ketones (Negative) mg/dL Negative Urine Blood (Negative) Negative Urine Nitrite (Negative) Negative Urine Bilirubin (Negative) Negative Urine Urobilinogen (Up to 0.2) mg/dL 0.2 Ur Leukocyte Esterase (Negative) Negative Urine Glucose (Negative) mg/dL Negative ECG Data Attestation: I personally reviewed and interpreted this ECG (s) as follows: Interpretation: rate of 67, sinus, normal axis, prolonged AK, RBBB, no stemi. Sign Out Sign Out Data: Sign Out Comment: Case signed out to Dr. Marin at 8 PM. This 87-year-old male patient is an extremely poor historian as he is his and neighbor. He definitively today admits to malaise, chest pain, weakness, and difficulty speaking. He reportedly has a hip or femur fracture from this past . With his chest pain we are obtaining an EKG, CT PE protocol, as well as serial troponins. feels like the patient may have had a stroke and a CT head without is also pending. We are repeating the patient's hip and femur films. VBG is back with a pH of 7.3 and PCO2 of 65. Patient's anemia appears baseline. BUN 28 and CR 1.8 today with GFR of 36. We are hydrating him as he looks dry and has had IV contrast. Urinalysis is still this. Last updated by Samreen Mackey MD at 07/27/22 20:06 Discharge Plan Disposition Patient Disposition: Admit to [facility] Condition: Stable Discharge Details Clinical Impression: Altered mental status, Fracture of right femur, Intractable pain, Ambulatory dysfunction, Wheezing Admit Date/Time: 07/28/22 00:43 Admit Provider: Iglesia Woo Attending Provider: Iglesia Woo Primary Care Provider: Eufemia Arora ED Provider: Almita Marin Discharge Data Discharge Date/Time-TO BE ENTERED AT DEPARTURE: 07/28/22 01:44
[2022-07-28] VITALS (30 sets, daily range): BP systolic 118–200; BP diastolic 55–115; PULSE 58–94; RESP 15–26; TEMP 36.3–37.1; O2SAT 92–100
--- NOTE | 2022-07-28 | DI.CT_ITS ---
Exam(s) CT LOWER EXTREMITY RT WO EXAM: CT LOWER EXTREMITY RT WO CLINICAL HISTORY: eval R proximal femur periprosthetic frx. TECHNIQUE: Imaging Protocol: Axial computed tomography images with coronal and sagittal reformatted images were created and reviewed. CONTRAST MATERIAL: None COMPARISON: CT CT CHEST/ABD/PEL WO from 02/13/2022 CR XR HIP RT MIN 2V AND PELVIS from 07/24/2022 CR,XR XR HIP RT COMPLETE AP PELVIS from 07/27/[address] CHEST PE CTA from 07/27/2022 FINDINGS: Bones: Right hip prosthesis creates mild artifact. Subacute fracture again noted in the greater tro hanter, unchanged in alignment from plain films of 24 Jul 2022. Old fracture seen at the upper aspect of the right ilium, partially included on the exam. This was present on the prior CT. Old right in ferior ischial pubic ramus fracture. Soft Tissues: Arm lateral skin and soft tissue swelling. Bladder calculus noted. Contrast seen in urinary bladder from prior CT. Large quantity of stool noted in the rectum. IMPRESSION: No change in alignment of minimally displaced fracture at the greater trochanter. The hip prosthesis appears intact. RADIATION DOSE DELIVERED: 312.66mGy.cm Total DLP DATA REPOSITORY: All CT scans at this facility are submitted to the National Radiology Data Registry (NRDR) Dose Index Registry (DIR) with the [employer] (ACR). RADIATION OPTIMIZATION: All CT scans at this facility use at least one of these dose optimization te chniques: automated exposure control; mA and/or kV adjustment per patient size (includes targeted exa ms where dose is matched to clinical indication); or iterative reconstruction.
--- NOTE | 2022-07-28 | DI.MRI_ITS ---
Exam(s) MR ANGIO BRAIN WO CLINICAL HISTORY: TIA. TECHNIQUE: 3D [id number] study was performed without contrast. COMPARISON: None. FINDINGS: Carotid Arteries: Petrous: Normal. Cavernous: Normal. Cerebral: Normal. Middle Cerebral Arteries: Right: No aneurysm or significant stenosis. Left: No aneurysm or significant stenosis. Anterior Cerebral Arteries: Right: No aneurysm or significant stenosis. Left: No aneurysm or significant stenosis. Posterior cerebral arteries: Right: No aneurysm or significant stenosis Left: No aneurysm or significant stenosis Vertebral Arteries: Right: No aneurysm or significant stenosis. No dissection. Left: No aneurysm or significant stenosis. No dissection.. Basilar Artery: No aneurysm or significant stenosis. Small Vessels: No evidence of beading. IMPRESSION: Normal MRA examination of the [place]. DATA REPOSITORY:
--- NOTE | 2022-07-28 | DI.US_ITS ---
APPROVED REPORT EXAM: Comprehensive 2D, Doppler, and color-flow Echocardiogram Patient Location: In-Patient Room/Bed: 209 Home Therapy Clinician: Rosario Marin RDCS (AE) Indications: ?TIA, HTN, Other Information Study Quality: Adequate. Technically limited study due to body habitus, inability to position patient exam done bedside supine. Conclusion Normal left ventricular wall thickness and chamber size. Ejection fraction is 55 to 60%. Wall motio n is normal Normal right ventricular size and systolic function The left atrium is mildly dilated. Right atrial size is normal Aortic valve is trileaflet and sclerotic with mild regurgitation Estimated right ventricular systolic pressure is 42 mmHg Wall motion Left Ventricle The left ventricle is normal size. The left ventricular systolic function is normal. The left ventric ular ejection fraction is within the normal range. There is normal left ventricular wall thickness. T here is normal LV segmental wall motion. LVEF is 58%. Right Ventricle The right ventricle is normal size. The right ventricular systolic function is normal. Atria Left atrium is mildly dilated. The right atrium size is normal. Aortic Valve The Aortic valve is sclerotic. Aortic valve is trileaflet. There is no aortic valvular stenosis. Mild aortic regurgitation. Mitral Valve The mitral valve is normal in structure. No evidence of mitral valve stenosis. Trace to mild mitral r egurgitation. Tricuspid Valve The tricuspid valve is normal in structure. There is no tricuspid valve stenosis. Trace to mild tricu spid regurgitation. Pulmonic Valve The pulmonary valve is normal in structure. There is no pulmonic valvular stenosis. Trace pulmonic re gurgitation. Great Vessels The aortic root is normal in size. Ascending aorta is not well visualized. Aortic arch is normal in c aliber. The IVC was not visualized. Technically limited subcostal imaging. Pericardium Technically very limited subcostal imaging. 2D Dimensions IVSD d PLAX 1.04 cm M: 0.6-1.2 LV Vol A2C d MOD 129.0 mL LVPW d PLAX 1.04 cm M: 0.6 - 1.2 LV Vol A4C d MOD 135.0 mL LVID d PLAX 4.69 cm M: 4.2 - 5.8 LA vol/ BSA A2C s A-L 36.1 mL/m2 LVDs 3.25 cm M: 2.5 - 4.0 LA vol/ BSA A4C s A-L 33.6 mL/m2 Ao Root d 3.39 cm M: 3.1 - 3.7 LA Vol/ BSA Biplane s A-L 36.0 mL/m2 LV EF Teichholz 57.7 % LA Area A4C s MOD 24.16 cm2 LVEF (Payne's) 54.87 % M: 52 - 72 LA Area A2C s MOD 24.19 cm2 LV Volume 97.73 mL M: 62 - 150 LV EF A4C MOD 56.7 % LV Volume Index 45.66 mL/m2 M: 34 - 74 LV EF A2C MOD 55.8 % LV Vol Biplane MOD 133.3 mL LV EF Biplane MOD 54.9 % FS 30.30 % SV 73.14 mL SV Index 34.12 mL/m2 M-Mode TAPSE 1.70 cm (M/F) >1.7 LV Diastology MV E' medial 0.134 (>0.07 m/s) E/A Ratio 0.8 LV E/e MED 4.95 (<14) MV E Vmax 0.67 (0.4-1.3 m/s) MV E/E' medial 4.96 MV A Vmax 0.80 (0.4-1.3 m/s) MV E/A Ratio 0.79 Aortic Valve LVOT Area 3.51 cm2 AoV Area Vmax 3.07 cm2 LVOT Vmax 1.13 m/s AoV Area/ BSA (Vmax) 1.43 cm2/m2 LVOT Mean Arcenio. 0.73 m/s LONG Mean Arcenio. 2.92 cm2 LVOT Peak Grad 5.1 mmHg LONG Mean Arcenio. Index 1.36 cm2/m2 LVOT Mean Grad 2.5 mmHg AR DT 2095 msec LVOT VTI 0.244 m AR PHT 608 msec LVOT Diam s 2.10 cm AoV Vmax 1.30 m/s Velocity Ratio 0.87 AoV Mean Arcenio. 0.88 m/s AoV Peak Grad 6.7 mmHg LVOT SV 85.66 mL AoV Mean Grad 3.5 mmHg AoV VTI 0.281 m AoV Area VTI 3.05 cm2 AoV Area/ BSA (VTI) 1.42 cm/m2 Mitral Valve MV DT 207 (160-240 msec) MV PHT 60 msec MV Area PHT 3.66 cm2 Pulmonary Valve PV Vmax 0.81 (0.5-1.5 m/s) RVOT Peak Gr. 1.32 mmHg PV Peak Grad 2.6 mmHg RVOT Mean Gr. 0.70 mmHg PV Mean Grad 1.1 mmHg RVOT VTI 0.111 m PV VTI 0.158 m RVOT Vmax 0.58 m/s Tricuspid Valve TR Peak Grad 39.1 mmHg TR Vmax 3.13 m/s RA Pressure 3.00 mmHg RVSP (TR) 42.2 mmHg
--- NOTE | 2022-07-28 | DI.MRI_ITS ---
Exam(s) MR BRAIN WO EXAM: MR BRAIN WO CLINICAL HISTORY: tia, brief facial droop TECHNIQUE: Multiplanar multisequence MRI of the brain was performed. COMPARISON: CT CT HEAD WO from 07/27/2022 FINDINGS: VENTRICLES AND EXTRA AXIAL SPACES: Ventricle normal in size and morphology for the patient's age. MIDLINE SHIFT: None. CEREBRAL PARENCHYMA: Prominent atrophy, particularly in the frontal and temporal regions. Mild to mo derate white matter changes consistent with microvascular disease. No focus of restricted diffusion to suggest acute infarct. No space-occupying lesion identified. HEMORRHAGE: None. BRAINSTEM/CEREBELLUM: Normal. VISUALIZED PARANASAL SINUSES/MASTOIDS:Minimal end of fluid inferior right mastoid air cells. Vasculature: Normal flow void. PITUITARY GLAND: Unremarkable. ORBITS: Unremarkable. IMPRESSION: Prominent frontotemporal atrophy. No acute abnormality. DATA REPOSITORY: CONTRAST MATERIAL: Noncontrast
--- NOTE | 2022-07-28 | DI.MRI_ITS ---
Exam(s) MR ANGIO NECK WO EXAM: MR ANGIO NECK WO CLINICAL HISTORY: TIA. TECHNIQUE: 2D and 3D [id number] studies. COMPARISON: No exams were available for comparison FINDINGS: Exam limited by motion. Common Carotid: Right: Plaque at the common carotid bulb. No dissection, occlusion or significant stenosis. Left: Mild plaque at the common carotid bulb. No dissection, occlusion or significant stenosis. External Carotid: Right: No evidence of occlusion or significant stenosis. Left: No evidence of occlusion or significant stenosis. Internal Carotid: Right: No dissection, occlusion or significant stenosis. Left: No dissection, occlusion or significant stenosis. Vertebral Artery: Right: No dissection, occlusion or significant stenosis. Left: No dissection, occlusion or significant stenosis. IMPRESSION: Plaque at the common carotid bulbs, right greater than left. No evidence of dissection, occlusion or significant stenosis. DATA REPOSITORY:
[2022-07-28 00:49] LABS: NT-proBNP 1135 pg/mL (<300)
--- NOTE | 2022-07-28 00:59 | W.PM.HP.N ---
Date of service: 07/28/22 Time of Service: 00:59 Assessment and Plan Assessment and plan (1) Altered mental status: Status: Acute Assessment and plan: Various observations by and a neighbor. Facial droop that resolved. Slumped and staring straight ahead earlier but resolved. TIA is a possible dx. CT head neg. Will order further imaging with MRI head and MRA head and neck. Neurology. What was observed could be a result of the tramadol given for the femur fx. His MAR lists oxycodone 5mg prn. He states he was in so much pain with the fx that he wasn't himself. (2) Fracture of right femur: Status: Acute Assessment and plan: Previous bilateral hip fractures with repair. Went home from [facility] with plan to engage in rehab efforts. However, he remained sedentary and didn't walk for 3 days. ED physician spoke with Dr Luna and he will evaluate pt. PT ordered. (3) Hypertension: Status: Chronic Assessment and plan: Cont metoprolol. Monitor. (4) Dementia: Assessment and plan: No behavioral issues reported thus far. He was a fairly good historian regarding todays events. He does normally take trazadone at night but no specific dementia meds. (5) Anemia: Status: Chronic Assessment and plan: Hgb 9.3. Typically appears to be in the 9-10 range. (6) Multiple falls: Assessment and plan: H/O rib fxs. Now with femur fx. Rehab efforts. Palliative consult. History of Present Illness History of Present Illness Chief Complaint: not feeling well Narrative: This is an 87 yo male with a PMH of dementia, depression, anemia, HTN, DJD, recently dxd R proximal femur fx at [facility]. He presented to the ED with his . They were both reportedly poor historians. He stated he woke up and didn't feel well but did not elucidate further. His stated he seemed to speak in a quiet voice but speech was clear; as if her was weak. Also seemed like he was out of it and was, at one point, slumped over. She also stated he seemed to have trouble eating but he did not choke on food. At 2PM a neighbor noted a left facial droop that later resolved. Three days prior to this presentation he got out of bed and got a foot caught in the blanket and he fell, hurting his R hip. He was evaluated at [facility] and d with a right femur fx and discharged to home. Since then, he states he hasn't gotten up to walk. She has given him tylenol and tramadol. His appetite has been poor. Lab showed a normal WBC count. Hgb of 9.3. VBG: pH 7.3, PCO2 6 5, Creatinine 1.8 (better than recent lab). BNP 1135. UA neg. Troponin neg x 2. CT head negative. CT chest negative for PE or acute findings. Xray of R hip/;jos and femur noted the proximal right femur fx. 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) Otorrhea of both ears (Acute 11/03/13) Otitis externa (Acute 11/03/13) Otalgia (Acute 11/18/13) 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, 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) Medical History Anxiety Cervical vertebral fracture s/p fall 01/17/17 CHF (congestive heart failure) Chronic renal insufficiency Chronic respiratory failure with hypoxia Conductive hearing loss in left ear (06/08/14) Dementia Esophageal reflux Hyperlipidemia Hypertension IBS (irritable bowel syndrome) Insomnia Kidney stones Migraine headache Multiple falls Multiple rib fractures Osteoarthritis Restless leg syndrome Thyroid mass Vertebral compression fracture Surgical History History of knee replacement History of right hip replacement Family History Father Stroke Mother Stroke Hypertension Pneumonia Sister Breast cancer Social History Smoking/Tobacco Use Status: Former Tobacco Use Quit Date: 03/23/1962 Smoking risk assessment performed?: Yes Alcohol Intake: current Alcohol Intake frequency: holidays/special occasions only Drug use: Never Household members: spouse 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 What is your relationship status?: Panel score (0-1 are the most socially isolated patients): 1 Do you feel safe at home: Yes Do you feel safe in your relationship?: Yes Meds Allergies and Home Medications Allergies Allergy/AdvReac Type Severity Reaction Status Date / Time hydromorphone [From Dilaudid] Allergy Verified 01/16/22 16:20 promethazine [From Phenergan] Allergy Verified 01/16/22 16:20 Home Medications Medication Instructions Recorded Confirmed Type acetic acid 2 % ear solution 3 drp otic (ear) TID 10/26/20 History lansoprazole 30 mg capsule,delayed 30 mg PO DAILY 10/26/20 History release loperamide-simethicone 2 mg-125 mg 1 tab PO Q3H PRN 10/26/20 History tablet mometasone 0.1 % topical cream 1 applic topical DAILY PRN itching 10/26/20 History multivitamin 1 tab PO DAILY 10/26/20 History peg 400-propylene glycol (PF) 0.4 1 drp ophthalmic (eye) BID-QID PRN 10/26/20 History %-0.3 % eye drops in a dropperette (Systane (PF)) sertraline 100 mg tablet 100 mg PO DAILY 10/26/20 History tamsulosin 0.4 mg capsule (Flomax) 0.4 mg PO DAILY 10/26/20 History trazodone 100 mg tablet 200 mg PO QHS PRN 10/26/20 History acetaminophen 500 mg tablet 1,000 mg PO Q8H #30 tabs 01/19/22 Rx albuterol sulfate 90 mcg/actuation 2 puff inhalation Q4H PRN PRN 01/19/22 Rx aerosol inhaler (Ventolin HFA) shortness of breath or wheezing #0 grams ascorbic acid (vitamin C) 500 mg 1,000 mg PO BID #30 tabs 01/19/22 Rx tablet (Vitamin C) cholecalciferol (vitamin D3) 25 2,000 unit PO DAILY #14 tabs 01/19/22 Rx mcg (1,000 unit) tablet cyanocobalamin (vitamin B-12) 500 1,000 mcg PO DAILY #60 tabs 01/19/22 Rx mcg tablet (Vitamin B-12) gabapentin 400 mg capsule 400 mg PO DAILY #0 caps 01/19/22 Rx ipratropium 20 mcg-albuterol 100 1 puff inhalation QID PRN PRN #0 01/19/22 Rx mcg/actuation mist for inhalation grams (Combivent Respimat) lidocaine 5 % topical patch 1 patch topical DAILY #30 ea 01/19/22 Rx metoprolol succinate 50 mg 50 mg PO DAILY #30 tabs 01/19/22 Rx tablet,extended release 24 hr (Toprol XL) oxycodone 5 mg tablet 5 mg PO BID PRN PRN pain #6 tabs 01/19/22 Rx zinc sulfate 50 mg zinc (220 mg) 220 mg PO DAILY #7 caps 01/19/22 Rx capsule (Zinc-220) oxycodone 5 mg capsule 5 mg PO Q6H PRN pain #9 caps 02/13/22 Rx Exam Narrative Exam Narrative: Lying in bed. Conversant and pleasant. Const General: well developed and well groomed Nutritional Appearance: well nourished Orientation: alert, oriented to person, oriented to place and other (Drowsy appearing, wakes to verbal stimuli, speaks slowly) [facility] Head: normocephalic and atraumatic Ears: hearing grossly normal bilaterally Mouth: oropharynx normal and moist mucous membranes abnormal (dry) Eyes General: appearance normal, both eyes and all related structures Conjunctivae: conjunctivae normal Neck Neck: full ROM, supple and no JVD Resp Effort & Inspection: normal respiratory effort Auscultation: clear to auscultation bilaterally Cardio Rate: regular rate Rhythm: regular rhythm Heart Sounds: no murmurs and no rubs GI Inspection: normal to inspection and non-distended Palpation: soft and nontender Auscultation: normal bowel sounds Skin General skin exam: no rashes or lesions noted Neuro General: patient alert, patient awake and no focal motor deficits Cranial Nerves: CN's II-XI intact bilaterally Speech: speech normal (though slow and quiet) Gait: other (Not assessed) Motor: other (SILVER) Coordination: other (FNF and Romberg deferred due to somnolence and weakness) Pupils: Normal pupillary reactivity/response: bilateral and Dilated: bilateral Extrem General: pedal edema present and no calf tenderness Right lower extremity: abnormal to inspection (foreshortened and externally rotated.) Psych Mental Status: mental status grossly normal Speech and Movement: speech clear Affect: normal affect Results Labs 07/27/22 18:31 07/27/22 18:31 Labs: Laboratory Results - last 24 hr 07/27/22 07/27/22 07/27/22 18:30 18:31 18:31 WBC 4.84 RBC 2.98 L Hgb 9.3 L Hct 29.9 L MCV 100 H MCH 31.2 MCHC 31.1 L RDW 12.7 Plt Count 103 L MPV 10.5 Immature Gran % 0.2 Neutrophils % 59.1 Lymphocytes % 23.1 Monocytes % 12.0 Eosinophils % 5.4 Basophils % 0.2 Nucleated RBC % 0.0 Absolute Neutrophils 2.86 Absolute Lymphocytes 1.12 L Absolute Monocytes 0.58 Absolute Eosinophils 0.26 Absolute Basophils 0.01 VBG pH VBG pCO2 VBG pO2 VBG HCO3 VBG Total CO2 VBG O2 Saturation VBG Base Excess VBG Lactate Sodium 138 Potassium 5.1 Chloride 103 Carbon Dioxide 33.1 H Anion Gap 1.9 L BUN 28 H Creatinine 1.8 H Est GFR (CKD-EPI 2020) 36.21 Glucose 109 H Calcium 9.0 Total Bilirubin 0.7 AST 10 L ALT 15 L Alkaline Phosphatase 70 Troponin I NT-Pro-B Natriuret Pep 1135 H Total Protein 6.6 Albumin 3.4 TSH Urine Color Urine Clarity Urine pH Ur Specific [place] Urine Protein Urine Ketones Urine Blood Urine Nitrite Urine Bilirubin Urine Urobilinogen Ur Leukocyte Esterase Urine Glucose 07/27/22 07/27/22 07/27/22 18:31 18:31 18:31 WBC RBC Hgb Hct MCV MCH MCHC RDW Plt Count MPV Immature Gran % Neutrophils % Lymphocytes % Monocytes % Eosinophils % Basophils % Nucleated RBC % Absolute Neutrophils Absolute Lymphocytes Absolute Monocytes Absolute Eosinophils Absolute Basophils VBG pH VBG pCO2 VBG pO2 VBG HCO3 VBG Total CO2 VBG O2 Saturation VBG Base Excess VBG Lactate 0.5 L Sodium Potassium Chloride Carbon Dioxide Anion Gap BUN Creatinine Est GFR (CKD-EPI 2020) Glucose Calcium Total Bilirubin AST ALT Alkaline Phosphatase Troponin I < 50 NT-Pro-B Natriuret Pep Total Protein Albumin TSH 0.60 Urine Color Urine Clarity Urine pH Ur Specific [place] Urine Protein Urine Ketones Urine Blood Urine Nitrite Urine Bilirubin Urine Urobilinogen Ur Leukocyte Esterase Urine Glucose 07/27/22 07/27/22 07/27/22 19:40 21:00 21:45 WBC RBC Hgb Hct MCV MCH MCHC RDW Plt Count MPV Immature Gran % Neutrophils % Lymphocytes % Monocytes % Eosinophils % Basophils % Nucleated RBC % Absolute Neutrophils Absolute Lymphocytes Absolute Monocytes Absolute Eosinophils Absolute Basophils VBG pH 7.30 L VBG pCO2 65 H* VBG pO2 31 VBG HCO3 32 H VBG Total CO2 31 H VBG O2 Saturation 59 VBG Base Excess 5 H VBG Lactate Sodium Potassium Chloride Carbon Dioxide Anion Gap BUN Creatinine Est GFR (CKD-EPI 2020) Glucose Calcium Total Bilirubin AST ALT Alkaline Phosphatase Troponin I < 50 NT-Pro-B Natriuret Pep Total Protein Albumin TSH Urine Color Yellow Urine Clarity Clear Urine pH 6.0 Ur Specific [place] 1.010 Urine Protein Negative Urine Ketones Negative Urine Blood Negative Urine Nitrite Negative Urine Bilirubin Negative Urine Urobilinogen 0.2 Ur Leukocyte Esterase Negative Urine Glucose Negative Last Vital Signs Pulse 70 07/28/22 00:46 Resp 21 07/28/22 00:50 BP 182/115 H 07/28/22 00:46 Pulse Ox 99 07/28/22 00:40 Time Spent Time spent with Patient: 40-54 minutes Time was spent: preparing to see the patient(eg.review tests), obtaining and/or reviewing separately otained hiistory, ordering medications,tests, procedures, referring, communicating with other health adult care manager, indepentently interpreting results and counseling the patient
[2022-07-28] MEDS: ACETAMINOPHEN 1,000 MG/100 ML BTL 400 MG IVPB (01:04)
[2022-07-28] MEDS: Normal Saline 1,000 ML 100 ML IV (01:05)
[2022-07-28] MEDS: traZODone 100 MG TAB 200 MG PO ×2 (02:40→21:33)
[2022-07-28] MEDS: Aspirin 325 MG TAB PO (02:40)
[2022-07-28 03:13] LABS: Lab Add On Test DONE
[2022-07-28 03:21] LABS: Magnesium 1.8 mg/dL (1.8-2.4)
[2022-07-28 06:44] LABS: HCT 31.2 % (40.0-50.0); HGB 9.5 g/dL (13.5-17.5); MCH 30.4 pg (27.0-33.0); MCHC 30.4 % (32.0-36.0); MCV 100 fL (80-95); MPV 11.7 fL (8.0-11.0); Platelet Count 111 10^3/uL (130-400); RBC 3.13 10^6/uL (4.36-5.78); RDW 12.8 % (11.8-14.1); RDW-SD 46.5 fL; WBC 4.09 10^3/uL (4.4-10.8)
[2022-07-28 07:15] LABS: Anion Gap 2.4 mmol/L (3-11); BUN 23 mg/dL (7-18); CO2 31.6 mmol/L (21.0-32.0); CREATININE 1.5 mg/dL (0.70-1.30); Calcium 9.1 mg/dL (8.5-10.1); Chloride 105 mmol/L (98-107); Estimated GFR 45.06 (mL/min/1.73m2); Glucose 93 mg/dL (74-106); Potassium 5.5 mmol/L (3.5-5.1); Sodium 139 mmol/L (136-145)
[2022-07-28 09:22] LABS: Lab Add On Test DONE
--- NOTE | 2022-07-28 09:55 | PT.INNT ---
PT Notes Visit Reasons: Femur fracture, TIA At testing early this morning. Will check in on patient later today for PT evalaution, as ordered.
[2022-07-28 10:05] LABS: Creatine Kinase 24 U/L (39-308)
[2022-07-28] MEDS: Lidocaine 5% Patch 1 PATCH TP (10:30)
[2022-07-28] MEDS: Metoprolol CR 50 MG TABCR PO (10:30)
[2022-07-28] MEDS: Tamsulosin 0.4 MG CAPCR PO (10:30)
[2022-07-28] MEDS: Sertraline 100 MG TAB PO (10:30)
[2022-07-28] MEDS: Cyanocobalamin 500 MCG TAB 1000 MCG PO (10:30)
[2022-07-28] MEDS: Gabapentin 400 MG CAP PO (10:30)
[2022-07-28] MEDS: Cholecalciferol (Vitamin D3) 1,000 UNIT TAB 2000 UNITS PO (10:30)
[2022-07-28] MEDS: Acetaminophen 325 MG TAB 650 MG PO ×2 (10:31→14:44)
[2022-07-28] MEDS: Multivitamin TAB 1 TAB PO (10:31)
[2022-07-28] MEDS: Lansoprazole 30 MG CAPCR PO (11:33)
[2022-07-28] MEDS: Sodium Zirconium Cyclosilicate 10 GM PKT PO ×2 (11:53→21:33)
--- NOTE | 2022-07-28 12:05 | W.ORTHOCONSU ---
Date of service: 07/28/22 Time of Service: 11:45 History of Present Illness History of Present Illness Chief Complaint: Right Hip Pain Narrative: Sukhjinder is an 87-year-old who presented to the [facility] ED last night for right hip pain as well as mental status changes and some concerns about facial droop. He fell approximately 3 days previously onto the right hip. He was seen in the [facility] ED where he was diagnosed with a nondisplaced periprosthetic fracture about the proximal aspect the right hip involving the greater trochanter but not involving the stem itself. He was sent home with physical therapy and a walker. However, report was that he was unable to ambulate at home. There also was the worsening mental status changes and thus he was taken to the emergency department. He was admitted for observation and for mobilization. He reports pain about the right hip with all attempts at weightbearing. Some active motion does not cause pain but if he tries to internally rotate or flex the right hip will have some pain. He denies numbness or tingling. He is unsure when these hips were replaced. He denies any significant issues with the hip prior to the fall. Consults Consult date: 07/28/22 Requesting physician: Iglesia Woo Consult Reason Right Periprosthetic Proximal Femur Fracture Assessment and Plan Assessment and plan (1) Periprosthetic fracture around internal prosthetic right hip joint: Status: Acute Assessment and plan: Sukhjinder is 87-year-old who has a [place] a fracture involving the greater trochanter about the right hip. This appears to be stable. His x-ray and CT do not show any signs of extension into the bone?implant interface. The positioning of the implant is somewhat rotated but this appears to be his usual location without any signs of gross loosening. Examination is also encouraging. Therefore, at this point I would continue with physical therapy. There is no surgery involved for this treatment. He will have pain with activation of the abductors from a laying to seated and seated to standing position. However, his pain should be more tolerable when ambulate with a walker. He should have a four-point gait at all times. I would limit any active abduction. He will be weightbearing as tolerated. He should work with physical therapy but this will take upwards of 2 to 3 months to fully heal. Review of Systems All systems reviewed & are unremarkable except as noted in HPI and below PFSH All Active Problems (Updated 07/28/22 @ 12:33 by Yunior Luna MD) Periprosthetic fracture around internal prosthetic right hip joint (Acute) Altered mental status (Acute) Fracture of right femur (Acute) Intractable pain (Acute) Ambulatory dysfunction (Acute) Wheezing (Acute) Multiple fractures of ribs of right side (Acute) Musculoskeletal pain of right upper extremity (Acute) Closed rib fracture (Acute) COVID-19 (Acute) Urinary frequency (Acute) Depression (Chronic) Anemia (Chronic) Hypertension (Chronic) DJD (degenerative joint disease) (Chronic) Sensorineural hearing loss (SNHL) of both ears (Acute) Ear itching (Acute) 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) Otorrhea of both ears (Acute 11/03/13) Otitis externa (Acute 11/03/13) Otalgia (Acute 11/18/13) 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, 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) Medical History Anxiety Cervical vertebral fracture s/p fall 01/17/17 CHF (congestive heart failure) Chronic renal insufficiency Chronic respiratory failure with hypoxia Conductive hearing loss in left ear (06/08/14) Dementia Esophageal reflux Hyperlipidemia Hypertension IBS (irritable bowel syndrome) Insomnia Kidney stones Migraine headache Multiple falls Multiple rib fractures Osteoarthritis Restless leg syndrome Thyroid mass Vertebral compression fracture Surgical History History of knee replacement History of right hip replacement Family History Father Stroke Mother Stroke Hypertension Pneumonia Sister Breast cancer Social History Smoking/Tobacco Use Status: Former Tobacco Use Quit Date: 03/23/1962 Smoking risk assessment performed?: Yes Alcohol Intake: current Alcohol Intake frequency: holidays/special occasions only Drug use: Never Household members: spouse 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 He is alert and oriented x3. He is in no acute distress. The right leg is slightly flexed and externally rotated. I am able to manipulate the right leg into a more neutral position. There is no apparent shortening. He is able to tolerate this motion. He handles flexion to about 80 degrees fairly well. Any flexion past that point causes some pain laterally. He also has pain with internal rotation. External [place] is much more comfortable without pain. He has pain along the greater trochanter and soft tissues about the lateral aspect the hip. There is no skin changes this area. Further active testing is unable to be performed he reports intact sensation from L3-S1. Results Last Vital Signs Temp 36.3 C L 07/28/22 12:02 Pulse 73 07/28/22 12:02 Resp 17 07/28/22 12:02 BP 171/95 H 07/28/22 12:02 Pulse Ox 92 07/28/22 12:02 Labs 07/28/22 06:14 07/28/22 06:14 Labs: Laboratory Results - last 24 hr 07/27/22 07/27/22 07/27/22 18:30 18:31 18:31 WBC 4.84 RBC 2.98 L Hgb 9.3 L Hct 29.9 L MCV 100 H MCH 31.2 MCHC 31.1 L RDW 12.7 Plt Count 103 L MPV 10.5 Immature Gran % 0.2 Neutrophils % 59.1 Lymphocytes % 23.1 Monocytes % 12.0 Eosinophils % 5.4 Basophils % 0.2 Nucleated RBC % 0.0 Absolute Neutrophils 2.86 Absolute Lymphocytes 1.12 L Absolute Monocytes 0.58 Absolute Eosinophils 0.26 Absolute Basophils 0.01 VBG pH VBG pCO2 VBG pO2 VBG HCO3 VBG Total CO2 VBG O2 Saturation VBG Base Excess VBG Lactate Sodium 138 Potassium 5.1 Chloride 103 Carbon Dioxide 33.1 H Anion Gap 1.9 L BUN 28 H Creatinine 1.8 H Est GFR (CKD-EPI 2020) 36.21 Glucose 109 H Calcium 9.0 Magnesium Total Bilirubin 0.7 AST 10 L ALT 15 L Alkaline Phosphatase 70 Creatine Kinase Troponin I NT-Pro-B Natriuret Pep 1135 H Total Protein 6.6 Albumin 3.4 TSH Urine Color Urine Clarity Urine pH Ur Specific [place] Urine Protein Urine Ketones Urine Blood Urine Nitrite Urine Bilirubin Urine Urobilinogen Ur Leukocyte Esterase Urine Glucose Add-On Test Request 07/27/22 07/27/22 07/27/22 18:31 18:31 18:31 WBC RBC Hgb Hct MCV MCH MCHC RDW Plt Count MPV Immature Gran % Neutrophils % Lymphocytes % Monocytes % Eosinophils % Basophils % Nucleated RBC % Absolute Neutrophils Absolute Lymphocytes Absolute Monocytes Absolute Eosinophils Absolute Basophils VBG pH VBG pCO2 VBG pO2 VBG HCO3 VBG Total CO2 VBG O2 Saturation VBG Base Excess VBG Lactate 0.5 L Sodium Potassium Chloride Carbon Dioxide Anion Gap BUN Creatinine Est GFR (CKD-EPI 2020) Glucose Calcium Magnesium Total Bilirubin AST ALT Alkaline Phosphatase Creatine Kinase Troponin I < 50 NT-Pro-B Natriuret Pep Total Protein Albumin TSH 0.60 Urine Color Urine Clarity Urine pH Ur Specific [place] Urine Protein Urine Ketones Urine Blood Urine Nitrite Urine Bilirubin Urine Urobilinogen Ur Leukocyte Esterase Urine Glucose Add-On Test Request 07/27/22 07/27/22 07/27/22 19:40 21:00 21:45 WBC RBC Hgb Hct MCV MCH MCHC RDW Plt Count MPV Immature Gran % Neutrophils % Lymphocytes % Monocytes % Eosinophils % Basophils % Nucleated RBC % Absolute Neutrophils Absolute Lymphocytes Absolute Monocytes Absolute Eosinophils Absolute Basophils VBG pH 7.30 L VBG pCO2 65 H* VBG pO2 31 VBG HCO3 32 H VBG Total CO2 31 H VBG O2 Saturation 59 VBG Base Excess 5 H VBG Lactate Sodium Potassium Chloride Carbon Dioxide Anion Gap BUN Creatinine Est GFR (CKD-EPI 2020) Glucose Calcium Magnesium Total Bilirubin AST ALT Alkaline Phosphatase Creatine Kinase Troponin I < 50 NT-Pro-B Natriuret Pep Total Protein Albumin TSH Urine Color Yellow Urine Clarity Clear Urine pH 6.0 Ur Specific [place] 1.010 Urine Protein Negative Urine Ketones Negative Urine Blood Negative Urine Nitrite Negative Urine Bilirubin Negative Urine Urobilinogen 0.2 Ur Leukocyte Esterase Negative Urine Glucose Negative Add-On Test Request 07/27/22 07/27/22 07/28/22 21:45 21:45 06:14 WBC RBC Hgb Hct MCV MCH MCHC RDW Plt Count MPV Immature Gran % Neutrophils % Lymphocytes % Monocytes % Eosinophils % Basophils % Nucleated RBC % Absolute Neutrophils Absolute Lymphocytes Absolute Monocytes Absolute Eosinophils Absolute Basophils VBG pH VBG pCO2 VBG pO2 VBG HCO3 VBG Total CO2 VBG O2 Saturation VBG Base Excess VBG Lactate Sodium 139 Potassium 5.5 H Chloride 105 Carbon Dioxide 31.6 Anion Gap 2.4 L BUN 23 H Creatinine 1.5 H Est GFR (CKD-EPI 2020) 45.06 Glucose 93 Calcium 9.1 Magnesium 1.8 Total Bilirubin AST ALT Alkaline Phosphatase Creatine Kinase Troponin I NT-Pro-B Natriuret Pep Total Protein Albumin TSH Urine Color Urine Clarity Urine pH Ur Specific [place] Urine Protein Urine Ketones Urine Blood Urine Nitrite Urine Bilirubin Urine Urobilinogen Ur Leukocyte Esterase Urine Glucose Add-On Test Request DONE 07/28/22 07/28/22 07/28/22 06:14 06:14 06:14 WBC 4.09 L RBC 3.13 L Hgb 9.5 L Hct 31.2 L MCV 100 H MCH 30.4 MCHC 30.4 L RDW 12.8 Plt Count 111 L MPV 11.7 H Immature Gran % Neutrophils % Lymphocytes % Monocytes % Eosinophils % Basophils % Nucleated RBC % Absolute Neutrophils Absolute Lymphocytes Absolute Monocytes Absolute Eosinophils Absolute Basophils VBG pH VBG pCO2 VBG pO2 VBG HCO3 VBG Total CO2 VBG O2 Saturation VBG Base Excess VBG Lactate Sodium Potassium Chloride Carbon Dioxide Anion Gap BUN Creatinine Est GFR (CKD-EPI 2020) Glucose Calcium Magnesium Total Bilirubin AST ALT Alkaline Phosphatase Creatine Kinase 24 L Troponin I NT-Pro-B Natriuret Pep Total Protein Albumin TSH Urine Color Urine Clarity Urine pH Ur Specific [place] Urine Protein Urine Ketones Urine Blood Urine Nitrite Urine Bilirubin Urine Urobilinogen Ur Leukocyte Esterase Urine Glucose Add-On Test Request DONE Imaging Imaging Studies: X-ray of the right hip and femur was reviewed. This shows a cementless hip prosthesis in position with what appears to be a nondisplaced fracture of the greater trochanter. There is some very minimal step-off laterally but does not seem to involve the calcar or the femur associated with the implant itself. There is significant external rotation of the right leg when compared to the left side with some loss of leg length and offset but looks largely unchanged from a skinny image from a CT scan [address] scan of the right hip was also ordered and performed shows a nondisplaced fracture of the greater trochanter. There is no involvement of the calcar. There is no extension into the femur. There is a little bit of cortical line seen around the stem which may represent some potential loosening although I cannot clearly state that but proximally there does not appear to be any signs of loosening
[2022-07-28] MEDS: oxyCODONE 5 MG TAB 2.5 MG PO ×2 (14:43→23:23)
[2022-07-28] MEDS: LORazepam 0.5 MG TAB PO ×2 (14:44→19:41)
--- NOTE | 2022-07-28 15:52 | W.PM.PROGNOT ---
Date of Service Date of service: 07/28/22 Time of Service: 15:52 Subjective Subjective Interval history since last seen: Pt seen in brief follow up. He was anxious earlier but is doing better since receiving ativan which he takes twice daily on the schedule at home. Per his and caretakers at the bedside, he is still more confused than his baseline. They are not sure if he would usually know the date. They do not think he is quite back to his normal yet. Mr Morel himself states that the pain in his right leg is bothering him, but otherwise he has no complaints. Denies dizziness, chest pain, shortness of breath, nausea. Per /geopolitics teacher, there was definitely an episode of something yesterday with a facial droop and slumping to the side. We discussed the negative findings of the MRIs and that an EEG has been ordered. I also informed them that neurology has been consulted. BP 171/79, otherwise, VSS. He is on 2L of O2 by NC for his heart, per family. He is on 2L of O2 now. RLL w/ lidocaine patch on R hip. Will increase the dose of scheduled tylenol. Continue oxycydone prn, gabapentin. Evaluated by ortho: non-operative management recommended. WBAT. Objective Last Vital Signs Temp 37.1 C 07/28/22 14:56 Pulse 85 07/28/22 14:56 Resp 17 07/28/22 14:56 BP 171/79 H 07/28/22 14:56 Pulse Ox 98 07/28/22 14:56 Laboratory Results - last 24 hr 07/27/22 07/27/22 07/27/22 18:30 18:31 18:31 WBC 4.84 RBC 2.98 L Hgb 9.3 L Hct 29.9 L MCV 100 H MCH 31.2 MCHC 31.1 L RDW 12.7 Plt Count 103 L MPV 10.5 Immature Gran % 0.2 Neutrophils % 59.1 Lymphocytes % 23.1 Monocytes % 12.0 Eosinophils % 5.4 Basophils % 0.2 Nucleated RBC % 0.0 Absolute Neutrophils 2.86 Absolute Lymphocytes 1.12 L Absolute Monocytes 0.58 Absolute Eosinophils 0.26 Absolute Basophils 0.01 VBG pH VBG pCO2 VBG pO2 VBG HCO3 VBG Total CO2 VBG O2 Saturation VBG Base Excess VBG Lactate Sodium 138 Potassium 5.1 Chloride 103 Carbon Dioxide 33.1 H Anion Gap 1.9 L BUN 28 H Creatinine 1.8 H Est GFR (CKD-EPI 2020) 36.21 Glucose 109 H Calcium 9.0 Magnesium Total Bilirubin 0.7 AST 10 L ALT 15 L Alkaline Phosphatase 70 Creatine Kinase Troponin I NT-Pro-B Natriuret Pep 1135 H Total Protein 6.6 Albumin 3.4 TSH Urine Color Urine Clarity Urine pH Ur Specific [place] Urine Protein Urine Ketones Urine Blood Urine Nitrite Urine Bilirubin Urine Urobilinogen Ur Leukocyte Esterase Urine Glucose Add-On Test Request 07/27/22 07/27/22 07/27/22 18:31 18:31 18:31 WBC RBC Hgb Hct MCV MCH MCHC RDW Plt Count MPV Immature Gran % Neutrophils % Lymphocytes % Monocytes % Eosinophils % Basophils % Nucleated RBC % Absolute Neutrophils Absolute Lymphocytes Absolute Monocytes Absolute Eosinophils Absolute Basophils VBG pH VBG pCO2 VBG pO2 VBG HCO3 VBG Total CO2 VBG O2 Saturation VBG Base Excess VBG Lactate 0.5 L Sodium Potassium Chloride Carbon Dioxide Anion Gap BUN Creatinine Est GFR (CKD-EPI 2020) Glucose Calcium Magnesium Total Bilirubin AST ALT Alkaline Phosphatase Creatine Kinase Troponin I < 50 NT-Pro-B Natriuret Pep Total Protein Albumin TSH 0.60 Urine Color Urine Clarity Urine pH Ur Specific [place] Urine Protein Urine Ketones Urine Blood Urine Nitrite Urine Bilirubin Urine Urobilinogen Ur Leukocyte Esterase Urine Glucose Add-On Test Request 07/27/22 07/27/22 07/27/22 19:40 21:00 21:45 WBC RBC Hgb Hct MCV MCH MCHC RDW Plt Count MPV Immature Gran % Neutrophils % Lymphocytes % Monocytes % Eosinophils % Basophils % Nucleated RBC % Absolute Neutrophils Absolute Lymphocytes Absolute Monocytes Absolute Eosinophils Absolute Basophils VBG pH 7.30 L VBG pCO2 65 H* VBG pO2 31 VBG HCO3 32 H VBG Total CO2 31 H VBG O2 Saturation 59 VBG Base Excess 5 H VBG Lactate Sodium Potassium Chloride Carbon Dioxide Anion Gap BUN Creatinine Est GFR (CKD-EPI 2020) Glucose Calcium Magnesium Total Bilirubin AST ALT Alkaline Phosphatase Creatine Kinase Troponin I < 50 NT-Pro-B Natriuret Pep Total Protein Albumin TSH Urine Color Yellow Urine Clarity Clear Urine pH 6.0 Ur Specific [place] 1.010 Urine Protein Negative Urine Ketones Negative Urine Blood Negative Urine Nitrite Negative Urine Bilirubin Negative Urine Urobilinogen 0.2 Ur Leukocyte Esterase Negative Urine Glucose Negative Add-On Test Request 07/27/22 07/27/22 07/28/22 21:45 21:45 06:14 WBC RBC Hgb Hct MCV MCH MCHC RDW Plt Count MPV Immature Gran % Neutrophils % Lymphocytes % Monocytes % Eosinophils % Basophils % Nucleated RBC % Absolute Neutrophils Absolute Lymphocytes Absolute Monocytes Absolute Eosinophils Absolute Basophils VBG pH VBG pCO2 VBG pO2 VBG HCO3 VBG Total CO2 VBG O2 Saturation VBG Base Excess VBG Lactate Sodium 139 Potassium 5.5 H Chloride 105 Carbon Dioxide 31.6 Anion Gap 2.4 L BUN 23 H Creatinine 1.5 H Est GFR (CKD-EPI 2020) 45.06 Glucose 93 Calcium 9.1 Magnesium 1.8 Total Bilirubin AST ALT Alkaline Phosphatase Creatine Kinase Troponin I NT-Pro-B Natriuret Pep Total Protein Albumin TSH Urine Color Urine Clarity Urine pH Ur Specific [place] Urine Protein Urine Ketones Urine Blood Urine Nitrite Urine Bilirubin Urine Urobilinogen Ur Leukocyte Esterase Urine Glucose Add-On Test Request DONE 07/28/22 07/28/22 07/28/22 06:14 06:14 06:14 WBC 4.09 L RBC 3.13 L Hgb 9.5 L Hct 31.2 L MCV 100 H MCH 30.4 MCHC 30.4 L RDW 12.8 Plt Count 111 L MPV 11.7 H Immature Gran % Neutrophils % Lymphocytes % Monocytes % Eosinophils % Basophils % Nucleated RBC % Absolute Neutrophils Absolute Lymphocytes Absolute Monocytes Absolute Eosinophils Absolute Basophils VBG pH VBG pCO2 VBG pO2 VBG HCO3 VBG Total CO2 VBG O2 Saturation VBG Base Excess VBG Lactate Sodium Potassium Chloride Carbon Dioxide Anion Gap BUN Creatinine Est GFR (CKD-EPI 2020) Glucose Calcium Magnesium Total Bilirubin AST ALT Alkaline Phosphatase Creatine Kinase 24 L Troponin I NT-Pro-B Natriuret Pep Total Protein Albumin TSH Urine Color Urine Clarity Urine pH Ur Specific [place] Urine Protein Urine Ketones Urine Blood Urine Nitrite Urine Bilirubin Urine Urobilinogen Ur Leukocyte Esterase Urine Glucose Add-On Test Request DONE Time Spent with Patient Time Spent with Patient: 25-34 minutes Time was spent: preparing to see the patient(eg.review tests), obtaining and/or reviewing separately otained hiistory, ordering medications,tests, procedures, referring, communicating with other health respiratory care practitioner, indepentently interpreting results, counseling the patient and care coordination
--- NOTE | 2022-07-28 16:08 | IN_ITS ---
Date of service: 07/28/22 Time of Service: 15:12 PT Notes Visit Reasons: Femur Fracture, TIA Physical Therapy Inpatient Initial Evaluation Date: 07/28/2022 Referring Doctor: Iglesia Woo MD PT Orders: PT CONSULT: Eval/treat Precautions: Fall. Standard. WBAT on the R LE with AD. Patient Profile/Admitting Diagnosis: Sukhjinder is an 87-year-old male with dementia sent to the ED on 07/27/2022 with altered mental status and left facial droop. Patient is admitted to the MedSurg unit for continued close monitoring of altered mental status, periprosthetic fracture of internal prosthetic right hip joint sustained from a fall, hypertension, anemia, and multiple falls. PMHX: All Active Problems?(Updated 07/28/22 @ 12:33 by Yunior Luna MD) Periprosthetic fracture around internal prosthetic right hip joint (Acute) Altered mental status (Acute) Fracture of right femur (Acute) Intractable pain (Acute) Ambulatory dysfunction (Acute) Wheezing (Acute) Multiple fractures of ribs of right side (Acute) Musculoskeletal pain of right upper extremity (Acute) Closed rib fracture (Acute) COVID-19 (Acute) Urinary frequency (Acute) Depression (Chronic) Anemia (Chronic) Hypertension (Chronic) DJD (degenerative joint disease) (Chronic) Sensorineural hearing loss (SNHL) of both ears (Acute) Ear itching (Acute) 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 Anxiety Cervical vertebral fracture s/p fall 01/17/17 CHF (congestive heart failure) Chronic renal insufficiency Chronic respiratory failure with hypoxia Conductive hearing loss in left ear (06/08/14) Dementia Esophageal reflux Hyperlipidemia Hypertension IBS (irritable bowel syndrome) Insomnia Kidney stones Migraine headache Multiple falls Multiple rib fractures Osteoarthritis Restless leg syndrome Thyroid mass Vertebral compression fracture Surgical History? History of knee replacement History of right hip replacement Social History/Home Situation: Lives with in a handicap-accessible private home. Requires supervision for all ambulation indoors and outdoors using 4WW. Has had caregivers 3 days a week for the whole day but may have some more coverage as needed when he goes home this time. Equipment Owned/DME: 4WW Subjective: Agreeable to getting out of bed and walking a little bit. Nurse Kay has just pre-medicated patient for this session and is quite up to moving this afternoon. Refused to be seen earlier as he had been to several tests earlier today. Denies lightheadedness, chest pain, and headache throughout. Objective: General Observation: SUpne in bed. Oxygen supplementation on 2L/min via NC. Telemetry monitoring in place. Mental Status: Alert and oriented as to person and purpose. Able to pay attention and follow single step commands. Requires repetition in 2 out of 5 instructions given Pain: 7/10 in R hip Vital Signs: Closely monitored via tele ROM: Right Upper Extremity: Shoulder Flexion WFL. Shoulder abduction WFL. Elbow flexion WFL. Wrist flexion WFL. Functional opening and closing of hand WFL. Left Upper Extremity: Shoulder Flexion WFL. Shoulder abduction WFL. Elbow flexion WFL. Wrist flexion WFL. Functional opening and closing of hand WFL. Right Lower Extremity: Hip flexion lacks the last 25% of AROM. Hip abduction lacks the last 25% of AROM. Knee flexion up to 90 degrees. Ankle dorsiflexion to neutral only. Ankle plantarflexion WFL. Left Lower Extremity: Hip flexion lacks the last 25% of AROM. Hip abduction lacks the last 25% of AROM. Knee flexion up to 90 degrees. Ankle dorsiflexion to neutral only. Ankle plantarflexion WFL. Strength: Right Upper Extremity: Shoulder flexors 4-/5. Shoulder abductors 4-/5. Elbow flexors 4-/5. Elbow extensors 4-/5. Machine Shop Inspector strong. Left Upper Extremity: Shoulder flexors 4-/5. Shoulder abductors 4-/5. Elbow flexors 4-/5. Elbow extensors 4-/5. Machine Shop Inspector strong. Right Lower Extremity: Hip flexors 3-/5. Hip abductors 3-/5. Knee flexors 3-/5. Knee extensors 4-/5. Ankle dorsiflexors 3-/5. Ankle plantarflexors 4-/5. Left Lower Extremity: Hip flexors 4-/5. Hip abductors 4-/5. Knee flexors 4-/5. Knee extensors 4-/5. Ankle dorsiflexors 4-/5. Ankle plantarflexors 4-/5. Bed Mobility/Transfers: Supine to sit with moderate assist of 2 Sit to stand with minimal assist of 2 Stand to sit with moderate assist of 2 Bed to reclining chair with moderate assist of 2 Gait: Instructed patient with level surface ambulation total of 5-6 small forward step, side steps and step backs requiring minimal assist of 2. Gait antalgic. Step height and length asymmetric. Balance: Static Sitting: Fair Dynamic Sitting: Poor Static Standing: Poor Dynamic Standing: Poor Special Tests: Mobility Limitations Standardized [facility] AM-PAC 6 clicks Basic Mobility Inpatient Short Form: Raw Score: 12 CMS Score: 69% deficit Informed Consent/Education: Patient was instructed in purpose of PT consult and plan of care. Agreeable to proceed with established PT POC to achieve personal goals. THERA EX: Insructed patient with beginner level/low intensity ex to maximize use of R hip: Ankle DF/PF x 10 Quads sets x 10 with 5 sh Gluteal sets x 10 with 5 sh Assessment: Does not have lucidity of though 100% of the time but is able to follow single- step commands oftentimes needing repetition of instructions. pain interferes with mobility performance, needs pre-medication for pain for PT sessions Patient presents with clinical signs and symptoms consistent with current/admitting diagnoses that have resulted to mobility limitations, gait instability, generalized weakness, and overall ADL decline as demonstrated by the following impairment level findings: 1. Decreased strength to R hip and R LE major muscle groups 2. Impaired sitting/standing balance 3. Impaired activity tolerance 4. Limitation of joint range of motion in R hip 5. Shortness of breath 6. Pain up to 7/10 with weight bearing in the R hip 8. Mildly confused Impairments are contributing to the following functional limitations: 1. Decline in bed mobility skills 2. Decline in transfer skills 3. Difficulty with ambulation without assistive device and physical assistance 4. Increased completion time for mobility ADL performance 5. Increased risk for falls Patient is assessed as a 22172 moderate complexity based on the following: History: 87-year-old male with past medical history as indicated above Examination: Demonstrable impairment in strength, balance, and mobility level with underlying impairments and functional limitations as exhibited above as well as deficit score of 69% utilizing the [facility] Mobility Inpatient Short Form Presentation: Evolving Decision Makin moderate complexity Goals: Goals X1 week 1. Supine-Sit independent 2. Sit-Supine independent 3. Sit-Stand supervision 4. Stand-Sit supervision with FWW 5. Bed-Chair isupervision with FWW 6. Chair-Bed supervision with FWW 7. Stand by assist with gait on level surface with use of FWW for at least 75 feet without report of pain nor dyspnea 8. Fair static and dynamic standing balance/tolerance PLAN OF CARE/TREATMENT PLAN: 1-2x/day, 7 days/week x 1 week. Plan of care has been reviewed with the AUDIO TECHNICIAN providing the service under Physical Therapy direction. Pre-medicate for pain. Isometric exercises to hip muscles in supine or sitting. Progress to isotonic exercises as tolerated. Progress bed mobility with HOB flat. Progress transfers and ambulation using FWW. Progress to 4WW when safe. Do caregiver training as needed for safe mobility performance. DISCHARGE RECOMMENDATIONS: [] Home with no services [] [] Home with services [specify] [] Home with outpatient PT [] [] SNF for continued rehabilitation [] [] Cryptologic Supervisor Care [] [] SNF versus LTC based on ability to participate and progress [] [X] PT vs SNF based on ability to progress towards goals TREATMENT CODE/TIME: 44462 x 20 minutes, 07760 x 19 minutes beginning at 15:12 PM. Thank you for the opportunity to participate in the care of this patient. Matilde Perez PT, DPT, CLT [facility] [place], [place]
--- NOTE | 2022-07-28 16:41 | INITIAL_ITS ---
Date of service: 07/28/22 Time of Service: 16:41 Care Management Initial Assmt Initial Assessment REASON FOR HOSPITALIZATION:: Femur Fracture, TIA PREVIOUS FUNCTIONAL STATUS/SOCIAL/FAMILY SUPPORTS:: Resides in [place] with , due to advanced dementia he requires the support of caregivers as well. Utilizes oxygen at baseline as well. CURRENT FUNCTIONAL STATUS:: Family at bedside, pleasant in interaction. MD reports anxious earlier today, better after receiving Ativan which is scheduled for twice daily at home. ADVANCE DIRECTIVES:: On file, Yulisa as agent. Has patient been provided with info about the portal/API?: No Did the patient sign up for the portal?: No CODE STATUS:: DNR/DNI INSURANCE COVERAGE / FINANCIAL ISSUES:: Medicare PRIMARY CARE PHYSICIAN:: Eufemia Arora POTENTIAL DISCHARGE NEEDS:: Increased services PATIENT/FAMILY EDUCATION NEEDS:: Review discharge instructions, discuss Ask Me Three. ANTICIPATED BARRIERS TO DISCHARGE:: Pain management; non operative management of femur fracture, dementia TRANSPORTATION:: Via private vehicle with family dependent on mobility and mentation PLAN:: Sukhjinder will be closely monitored for pain management and mobility support. He will be evaluated for increased services prior to discharge. Anticipate he will return home with , Yulisa and resume caregiver support. Transport dependent on mobility and mentation. PFSH All Active Problems (Updated 07/28/22 @ 12:33 by Yunior Luna MD) Periprosthetic fracture around internal prosthetic right hip joint (Acute) Altered mental status (Acute) Fracture of right femur (Acute) Intractable pain (Acute) Ambulatory dysfunction (Acute) Wheezing (Acute) Multiple fractures of ribs of right side (Acute) Musculoskeletal pain of right upper extremity (Acute) Closed rib fracture (Acute) COVID-19 (Acute) Urinary frequency (Acute) Depression (Chronic) Anemia (Chronic) Hypertension (Chronic) DJD (degenerative joint disease) (Chronic) Sensorineural hearing loss (SNHL) of both ears (Acute) Ear itching (Acute) 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) Otorrhea of both ears (Acute 11/03/13) Otitis externa (Acute 11/03/13) Otalgia (Acute 11/18/13) 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, 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) Medical History Anxiety Cervical vertebral fracture s/p fall 01/17/17 CHF (congestive heart failure) Chronic renal insufficiency Chronic respiratory failure with hypoxia Conductive hearing loss in left ear (06/08/14) Dementia Esophageal reflux Hyperlipidemia Hypertension IBS (irritable bowel syndrome) Insomnia Kidney stones Migraine headache Multiple falls Multiple rib fractures Osteoarthritis Restless leg syndrome Thyroid mass Vertebral compression fracture Surgical History History of knee replacement History of right hip replacement Family History Father Stroke Mother Stroke Hypertension Pneumonia Sister Breast cancer Social History Smoking/Tobacco Use Status: Former Tobacco Use Quit Date: 03/23/1962 Smoking risk assessment performed?: Yes Alcohol Intake: current Alcohol Intake frequency: holidays/special occasions only Drug use: Never Household members: spouse 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
--- NOTE | 2022-07-28 16:58 | W.NEUROCONSU ---
Date of service: 07/28/22 Time of Service: 16:58 Assessment and Plan Assessment and plan (1) Altered mental status: Status: Acute Assessment and plan: Mr. Morel was admitted with AMS with transient L face/R arm weakness and dysarthria, now all resolved and seemingly back to baseline. Timeline rules out TIA. Brain MRI without evidence of acute stroke. Discussed symptoms likely neurological decompensation in setting of pain medications, dehydration, poor PO intake, increased pain, etc on top of dementia. Seizure and post-ictal state remains in the differential and agree with EEG - ok to do outpatient if needed. Agree with PT. He should continue aspirin 81mg daily + statin. He should follow-up in neurology clinic in 4-6 weeks. History of Present Illness History of Present Illness Chief Complaint: transient neurological deficits and AMS Narrative: Handedness: LEFT. Sukhjinder is an 87 year-old with dementia, hypertension, hyperlipidemia, CHF on chronic O2 2L via NC, anxiety, and chronic imbalance. Seen in [facility] ER ~07/25/22 s/p fall found to have a R femur fracture. After going home, non-ambulatory and using APAP +Tramadol for poorly controlled pain. Family also note that he has not been eating/drinking. He was brought by family to [facility] ER on 07/27/22 after onset of AMS/worsened confusion starting around noon. At some point noticed to have left face weakness, dysarthria, and R arm weakness that persisted such they brought him to the ER ~5pm. At that time symptoms were beginning to improve, but he didn't return to baseline until ~midnight. Today, family report he is back to himself. Was a bit grumpy earlier today which they attribute to not getting his lorazepam in time and poor pain control, but up and sitting in a chair this evening. He takes aspirin + statin at home. He has undergone the work-up as below. -CTH (07/27/22): no acute findings. Significant fronto-temporal atrophy. I reviewed these images personally and this is my personal interpretation. -MRI brain w/o (07/28/22): No acute findings. Significant frontal and temporal lobe atrophy. Mild chronic vascular changes. I reviewed these images personally and this is my personal interpretation. -MRA head/neck (07/28/22): Complicated by motion artifact. Plaque at the carotid bifurcation bilaterally without significant stenosis. I reviewed these images personally and this is my personal interpretation. -TTE (07/28/22): EF 55-60% with no wall motion abnormalities. LA mildly dilated. -Labs: Cr 1.8, Hgb 9.3, UA neg, Trop x2 neg, TSH 0.6 -Labs (01/17/22): B12 [id number] Review of Systems All systems reviewed & are unremarkable except as noted in HPI and below PFSH All Active Problems (Updated 07/28/22 @ 12:33 by Yunior Luna MD) Periprosthetic fracture around internal prosthetic right hip joint (Acute) Altered mental status (Acute) Fracture of right femur (Acute) Intractable pain (Acute) Ambulatory dysfunction (Acute) Wheezing (Acute) Multiple fractures of ribs of right side (Acute) Musculoskeletal pain of right upper extremity (Acute) Closed rib fracture (Acute) COVID-19 (Acute) Urinary frequency (Acute) Depression (Chronic) Anemia (Chronic) Hypertension (Chronic) DJD (degenerative joint disease) (Chronic) Sensorineural hearing loss (SNHL) of both ears (Acute) Ear itching (Acute) 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) Otorrhea of both ears (Acute 11/03/13) Otitis externa (Acute 11/03/13) Otalgia (Acute 11/18/13) 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, 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) Medical History Anxiety Cervical vertebral fracture s/p fall 01/17/17 CHF (congestive heart failure) Chronic renal insufficiency Chronic respiratory failure with hypoxia Conductive hearing loss in left ear (06/08/14) Dementia Esophageal reflux Hyperlipidemia Hypertension IBS (irritable bowel syndrome) Insomnia Kidney stones Migraine headache Multiple falls Multiple rib fractures Osteoarthritis Restless leg syndrome Thyroid mass Vertebral compression fracture Surgical History History of knee replacement History of right hip replacement Family History Father Stroke Mother Stroke Hypertension Pneumonia Sister Breast cancer Social History Smoking/Tobacco Use Status: Former Tobacco Use Quit Date: 03/23/1962 Smoking risk assessment performed?: Yes Alcohol Intake: current Alcohol Intake frequency: holidays/special occasions only Drug use: Never Household members: spouse 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 What is your relationship status?: Panel score (0-1 are the most socially isolated patients): 1 Do you feel safe at home: Yes Do you feel safe in your relationship?: Yes Visit Medication and Allergies Active Medications Generic Name Dose Route Start Last Admin Trade Name Freq PRN Reason Stop Dose Admin Acetaminophen 1,000 mg 07/28/22 20:00 Acetaminophen 325 Mg Tab PO TID JALEN Albuterol/Ipratropium 3 ml 07/28/22 00:43 Albuterol/Ipratropium 3 Ml Upd Vial UPD Q6H PRN PRN Carboxymethylcellulose Sodium 1 each 07/28/22 08:30 Refresh Plus Eye Drops 0.4ml OP QID PRN DRYNESS Cholecalciferol 2,000 units 07/28/22 08:30 07/28/22 10:30 Cholecalciferol (Vitamin D3) 1,000 Unit Tab PO 2,000 units DAILY JALEN Administration Cyanocobalamin 1,000 mcg 07/28/22 08:30 07/28/22 10:30 Cyanocobalamin 500 Mcg Tab PO 1,000 mcg DAILY JALEN Administration Dimethicone/Zinc Oxide 0 gm 07/28/22 00:43 Priya Protect Cream 142 Gm Tube TP PRN PRN Docusate Sodium 100 mg 07/28/22 08:30 07/28/22 10:47 Docusate Sodium 100 Mg Cap PO Not Given BID JALEN Gabapentin 400 mg 07/28/22 08:30 07/28/22 10:30 Gabapentin 400 Mg Cap PO 400 mg DAILY JALEN Administration IV Miscellaneous Supplies 1 each 07/27/22 18:30 Iv Access-Emergency Dept IV DIRECTED JALEN Lansoprazole 30 mg 07/28/22 11:00 07/28/22 11:33 Lansoprazole 30 Mg Capcr PO 30 mg DAILY@0730 JALEN Administration Lidocaine 1 patch 07/28/22 09:00 07/28/22 10:30 Lidocaine 5% Patch TP 1 patch Q24H JALEN Administration Lorazepam 0.5 mg 07/28/22 14:30 07/28/22 14:44 Lorazepam 0.5 Mg Tab PO 0.5 mg BID JALEN Administration Metoprolol Succinate 50 mg 07/28/22 08:30 07/28/22 10:30 Metoprolol Cr 50 Mg Tabcr PO 50 mg DAILY JALEN Administration Multivitamins 1 tab 07/28/22 08:30 07/28/22 10:31 Multivitamin Tab PO 1 tab DAILY JALEN Administration Oxycodone HCl 2.5 mg 07/28/22 01:57 07/28/22 14:43 Oxycodone 5 Mg Tab PO 2.5 mg Q6H PRN Administration pain Polyethylene Glycol 17 gm 07/28/22 00:43 Polyethylene Glycol 3350 17 Gm Packet PO DAILY PRN PRN Constipation Sertraline HCl 100 mg 07/28/22 08:30 07/28/22 10:30 Sertraline 100 Mg Tab PO 100 mg DAILY JALEN Administration Sodium Chloride 0 ml 07/27/22 18:22 07/27/22 19:42 Normal Saline Flush 10 Ml Syr IVP 10 ml PRN PRN Administration Sodium Zirconium Cyclosilicate 10 gm 07/28/22 22:30 Sodium Zirconium Cyclosilicate 10 Gm Pkt PO 07/30/22 14:31 TID@0630,1430,2230 JALEN Tamsulosin HCl 0.4 mg 07/28/22 08:30 07/28/22 10:30 Tamsulosin 0.4 Mg Capcr PO 0.4 mg DAILY JALEN Administration Trazodone HCl 200 mg 07/28/22 00:52 07/28/22 02:40 Trazodone 100 Mg Tab PO 200 mg HS JALEN Administration Allergies hydromorphone [From Dilaudid] Allergy (Verified 01/16/22 16:20) promethazine [From Phenergan] Allergy (Verified 01/16/22 16:20) Exam Narrative Exam Narrative: Physical Exam: Gen: Patient of apparent stated age, NAD Head and face: no facial or cranial abnormalities Neck: Supple, no meningismus, no occipital tenderness CV: RRR, no murmur Resp: CTA B/L Abd: soft, nontender, nondistended, +BS Ext: Mild bilateral LE edema. No clubbing or cyanosis. No bony deformity. Neuro Exam: Language: fluency, naming, repetition, and comprehension intact; follows simple commands Mental Status: AAOx1, current events and fund of knowledge limited; Speech: mild-moderate dysarthria (did not have dentures in) Cranial nerves: Funduscopy: not performed CN II: visual diaz intact CN III, IV, : extraocular movements intact, no nystagmus, pupils symmetric and reactive to light CN V: face sensation intact to LT and PP CN VII: no facial asymmetry noted - bilateral ptosis of aging CN VIII: hearing reduced CN IX, X: palate rises symmetrically CN XI: trapezius/SCM 5/5 bilaterally CN XII: protrudes tongue symmetrically Sensory: intact to LT, PP in all extremities Motor: bulk and tone intact. Fine motor movements intact bilaterally. No pronator drift. Strength 5/5 throughout the bilateral UE. RLE not tested due to pain as per patient preference. LLE 4-/5 throughout - distracted by visitors vs real weakness? Reflexes: hyporeflexic throughout; toes down going bilaterally; Coordination: FTN and HTS intact bilaterally UE and LLE Gait: not tested due to Fx Results Last Vital Signs Temp 98.8 F 07/28/22 14:56 Pulse 63 07/28/22 15:00 Resp 17 07/28/22 14:56 BP 171/79 H 07/28/22 14:56 Pulse Ox 98 07/28/22 14:56 Labs 07/28/22 06:14 07/28/22 19:59 Labs: Laboratory Results - last 24 hr 07/27/22 07/27/22 07/27/22 18:30 18:31 18:31 WBC 4.84 RBC 2.98 L Hgb 9.3 L Hct 29.9 L MCV 100 H MCH 31.2 MCHC 31.1 L RDW 12.7 Plt Count 103 L MPV 10.5 Immature Gran % 0.2 Neutrophils % 59.1 Lymphocytes % 23.1 Monocytes % 12.0 Eosinophils % 5.4 Basophils % 0.2 Nucleated RBC % 0.0 Absolute Neutrophils 2.86 Absolute Lymphocytes 1.12 L Absolute Monocytes 0.58 Absolute Eosinophils 0.26 Absolute Basophils 0.01 VBG pH VBG pCO2 VBG pO2 VBG HCO3 VBG Total CO2 VBG O2 Saturation VBG Base Excess VBG Lactate Sodium 138 Potassium 5.1 Chloride 103 Carbon Dioxide 33.1 H Anion Gap 1.9 L BUN 28 H Creatinine 1.8 H Est GFR (CKD-EPI 2020) 36.21 Glucose 109 H Calcium 9.0 Magnesium Total Bilirubin 0.7 AST 10 L ALT 15 L Alkaline Phosphatase 70 Creatine Kinase Troponin I NT-Pro-B Natriuret Pep 1135 H Total Protein 6.6 Albumin 3.4 TSH Urine Color Urine Clarity Urine pH Ur Specific [place] Urine Protein Urine Ketones Urine Blood Urine Nitrite Urine Bilirubin Urine Urobilinogen Ur Leukocyte Esterase Urine Glucose Add-On Test Request 07/27/22 07/27/22 07/27/22 18:31 18:31 18:31 WBC RBC Hgb Hct MCV MCH MCHC RDW Plt Count MPV Immature Gran % Neutrophils % Lymphocytes % Monocytes % Eosinophils % Basophils % Nucleated RBC % Absolute Neutrophils Absolute Lymphocytes Absolute Monocytes Absolute Eosinophils Absolute Basophils VBG pH VBG pCO2 VBG pO2 VBG HCO3 VBG Total CO2 VBG O2 Saturation VBG Base Excess VBG Lactate 0.5 L Sodium Potassium Chloride Carbon Dioxide Anion Gap BUN Creatinine Est GFR (CKD-EPI 2020) Glucose Calcium Magnesium Total Bilirubin AST ALT Alkaline Phosphatase Creatine Kinase Troponin I < 50 NT-Pro-B Natriuret Pep Total Protein Albumin TSH 0.60 Urine Color Urine Clarity Urine pH Ur Specific [place] Urine Protein Urine Ketones Urine Blood Urine Nitrite Urine Bilirubin Urine Urobilinogen Ur Leukocyte Esterase Urine Glucose Add-On Test Request 07/27/22 07/27/22 07/27/22 19:40 21:00 21:45 WBC RBC Hgb Hct MCV MCH MCHC RDW Plt Count MPV Immature Gran % Neutrophils % Lymphocytes % Monocytes % Eosinophils % Basophils % Nucleated RBC % Absolute Neutrophils Absolute Lymphocytes Absolute Monocytes Absolute Eosinophils Absolute Basophils VBG pH 7.30 L VBG pCO2 65 H* VBG pO2 31 VBG HCO3 32 H VBG Total CO2 31 H VBG O2 Saturation 59 VBG Base Excess 5 H VBG Lactate Sodium Potassium Chloride Carbon Dioxide Anion Gap BUN Creatinine Est GFR (CKD-EPI 2020) Glucose Calcium Magnesium Total Bilirubin AST ALT Alkaline Phosphatase Creatine Kinase Troponin I < 50 NT-Pro-B Natriuret Pep Total Protein Albumin TSH Urine Color Yellow Urine Clarity Clear Urine pH 6.0 Ur Specific [place] 1.010 Urine Protein Negative Urine Ketones Negative Urine Blood Negative Urine Nitrite Negative Urine Bilirubin Negative Urine Urobilinogen 0.2 Ur Leukocyte Esterase Negative Urine Glucose Negative Add-On Test Request 07/27/22 07/27/22 07/28/22 21:45 21:45 06:14 WBC RBC Hgb Hct MCV MCH MCHC RDW Plt Count MPV Immature Gran % Neutrophils % Lymphocytes % Monocytes % Eosinophils % Basophils % Nucleated RBC % Absolute Neutrophils Absolute Lymphocytes Absolute Monocytes Absolute Eosinophils Absolute Basophils VBG pH VBG pCO2 VBG pO2 VBG HCO3 VBG Total CO2 VBG O2 Saturation VBG Base Excess VBG Lactate Sodium 139 Potassium 5.5 H Chloride 105 Carbon Dioxide 31.6 Anion Gap 2.4 L BUN 23 H Creatinine 1.5 H Est GFR (CKD-EPI 2020) 45.06 Glucose 93 Calcium 9.1 Magnesium 1.8 Total Bilirubin AST ALT Alkaline Phosphatase Creatine Kinase Troponin I NT-Pro-B Natriuret Pep Total Protein Albumin TSH Urine Color Urine Clarity Urine pH Ur Specific [place] Urine Protein Urine Ketones Urine Blood Urine Nitrite Urine Bilirubin Urine Urobilinogen Ur Leukocyte Esterase Urine Glucose Add-On Test Request DONE 07/28/22 07/28/22 07/28/22 06:14 06:14 06:14 WBC 4.09 L RBC 3.13 L Hgb 9.5 L Hct 31.2 L MCV 100 H MCH 30.4 MCHC 30.4 L RDW 12.8 Plt Count 111 L MPV 11.7 H Immature Gran % Neutrophils % Lymphocytes % Monocytes % Eosinophils % Basophils % Nucleated RBC % Absolute Neutrophils Absolute Lymphocytes Absolute Monocytes Absolute Eosinophils Absolute Basophils VBG pH VBG pCO2 VBG pO2 VBG HCO3 VBG Total CO2 VBG O2 Saturation VBG Base Excess VBG Lactate Sodium Potassium Chloride Carbon Dioxide Anion Gap BUN Creatinine Est GFR (CKD-EPI 2020) Glucose Calcium Magnesium Total Bilirubin AST ALT Alkaline Phosphatase Creatine Kinase 24 L Troponin I NT-Pro-B Natriuret Pep Total Protein Albumin TSH Urine Color Urine Clarity Urine pH Ur Specific [place] Urine Protein Urine Ketones Urine Blood Urine Nitrite Urine Bilirubin Urine Urobilinogen Ur Leukocyte Esterase Urine Glucose Add-On Test Request DONE
[2022-07-28] MEDS: Acetaminophen 325 MG TAB 1000 MG PO (19:40)
[2022-07-28 20:14] LABS: Potassium 4.7 mmol/L (3.5-5.1)
[2022-07-29] VITALS (10 sets, daily range): BP systolic 130–172; BP diastolic 76–86; PULSE 68–96; RESP 16–18; TEMP 36.6–37.5; O2SAT 95–99
[2022-07-29] MEDS: Sodium Zirconium Cyclosilicate 10 GM PKT PO (05:57)
[2022-07-29 07:10] LABS: Abs Immature Grans 0.03 10^3/uL (0.0-0.06); Absolute Basophil Count 0.03 10^3/uL (0.0-0.2); Absolute Eosinophil Count 0.17 10^3/uL (0.0-0.7); Absolute Lymphocyte Count 0.44 10^3/uL (1.2-3.4); Absolute Monocyte Count 0.55 10^3/uL (0.1-0.8); Absolute Neutrophil Count 5.74 10^3/uL (1.2-6.7); Basophils % 0.4; Eosinophils % 2.4; HCT 35.4 % (40.0-50.0); HGB 11.3 g/dL (13.5-17.5); Immature Grans % 0.4; Lymphocytes % 6.3; MCHC 31.9 % (32.0-36.0); MCV 97 fL (80-95); MPV 11.7 fL (8.0-11.0); Monocytes % 7.9; Neutrophils % 82.6; Platelet Count 132 10^3/uL (130-400); RBC 3.65 10^6/uL (4.36-5.78); RDW 12.5 % (11.8-14.1); RDW-SD 45.1 fL; WBC 6.96 10^3/uL (4.4-10.8)
[2022-07-29 07:50] LABS: ALT 16 U/L (16-63); AST 14 U/L (15-37); Albumin 3.6 g/dL (3.4-5.0); Alkaline Phosphatase 81 U/L (46-116); Anion Gap 8.7 mmol/L (3-11); BUN 22 mg/dL (7-18); Bilirubin, Direct 0.3 mg/dL (0.0-0.2); Bilirubin, Total 1.1 mg/dL (0.2-1.0); CO2 32.3 mmol/L (21.0-32.0); CREATININE 1.8 mg/dL (0.70-1.30); Calcium 9.6 mg/dL (8.5-10.1); Chloride 103 mmol/L (98-107); Estimated GFR 36.21 (mL/min/1.73m2); Glucose 105 mg/dL (74-106); Magnesium 1.7 mg/dL (1.8-2.4); Sodium 144 mmol/L (136-145)
--- NOTE | 2022-07-29 08:30 | NUR.NOTE ---
Nursing Note: Attempted to start new IV for patient. Patient resistive. Stated, no IV. Charge nurse made aware.
[2022-07-29] MEDS: Sertraline 100 MG TAB PO (08:52)
[2022-07-29] MEDS: Cyanocobalamin 500 MCG TAB 1000 MCG PO (08:52)
[2022-07-29] MEDS: Cholecalciferol (Vitamin D3) 1,000 UNIT TAB 2000 UNITS PO (08:52)
[2022-07-29] MEDS: Acetaminophen 325 MG TAB 1000 MG PO ×2 (08:52→20:02)
[2022-07-29] MEDS: Tamsulosin 0.4 MG CAPCR PO (08:52)
[2022-07-29] MEDS: Metoprolol CR 50 MG TABCR PO (08:52)
[2022-07-29] MEDS: Gabapentin 400 MG CAP PO (08:53)
[2022-07-29] MEDS: Multivitamin TAB 1 TAB PO (08:53)
[2022-07-29] MEDS: Lidocaine 5% Patch 1 PATCH TP (08:53)
[2022-07-29] MEDS: Magnesium Chloride 64 MG TABCR PO ×2 (09:48→20:02)
[2022-07-29] MEDS: LORazepam 0.5 MG TAB PO ×2 (09:48→20:02)
--- NOTE | 2022-07-29 10:44 | CMPROGNOTE_ITS ---
Date of service: 07/29/22 Time of Service: 10:44 Care Management Progress Note Progress Note Text Progress Note Text: S/O: Per report, Sukhjinder is more confused this morning. CM reviewed with Dr. Joiner who will provide Palliative consult today. Lives with in a handicap- accessible private home.?Requires supervision for all ambulation indoors and outdoors using 4WW.?Has had caregivers 3 days a week for the whole day but may have some more coverage as needed when he goes home this time. Dr. Joiner met with Sukhjinder's Yulisa who advised that she has upcoming surgery early next week, and is concerned about managing Sukhjinder's increased care needs. Only ag reeable to referral to [facility] at this time; their son is flying in to support post surgery. CM continues to follow. A: 87 male admitted to [facility] 07/28/22 for femur fracture, TIA P: PT recommending VNA PT-vs-SNF at this time. Sukhjinder will be closely monitored for pain management and mobility support. He will be evaluated for increased services prior to discharge. Per Palliative consult, referral faxed to [facility]. Transport dependent on mobility and mentation.
--- NOTE | 2022-07-29 11:16 | W.PALLCONSUL ---
Date of service: 07/29/22 Time of Service: 11:17 History of Present Illness Narrative: The patient is an 87-year-old gentleman from [facility] with history of of peripheral neuropathy, resulting in frequent falls and fractures (hip, hip, clavicle, ribs), chronic anemia, CHF with preserved ejection fraction, CKD, COPD (on chronic home oxygen for about 2 years), and mild cognitive impairment. Had a fall at home about a week ago which resulted in a nondisplaced right femur fracture. He was evaluated at [facility] and observed for a few days. He was sent home and has been getting around the house in a wheelchair. Initially admitted to [facility] and sent home. 2 days ago at home he had some sort of an episode with weakness, transient facial droop and change in mental status. 2 days ago he refused to eat and had new onset of dysphagia. also noticed he was picking at his close and picking in the air. He had taken a few doses of tramadol at home for pain. Episode was initially felt to be possible TIA. Admitted to [facility] for evaluation. Shortly after admission noted he was back to his baseline cognition. But then over the last 36 hours she reports he is gone downhill , seems withdrawn, angry, talking less and eating less. Patient unable to share any significant history with me. My first brief issues with him before lunch, he is able to answer in single word answers and except to drink. When I returned later in the afternoon, he lays in bed with eyes closed and does not answer questions. Most of history today is obtained from his . reports that patient has at least a 4+ history of peripheral neuropathy which required him to walk with a walker and lead to fairly frequent falls. He broke each hip on separate occasions, suffered rib fractures and a clavicle fracture. But she describes him as robust , despite this until 2 years ago, when he was diagnosed with CHF and polycycstic kidney disease. Using home oxygen since then and somewhat weaker. Up until 2 weeks ago was able to dress himself and walk around with walker and pretty much take care of himself. He has had [facility] for about 4 years; has caregiver during this time 3 whole days a week (baths, takes him out, rides, to store). now notes a 30 pound weight loss over the winter, that is NEW. Memory issues started a few years ago. reports that he is now eating small amounts.Was laughing a talking. History of panic attacks. Has chronically taken Xanax twice a day for decades. Switch to lorazepam here. has to have meningioma removed from brain in 7 days at [facility]. She has foot drop of right leg. Son arriving from [place] a week from today to care for dad for a week during the surgery. Guille daughter is nurse, will stay with mom around her surgery. also has a history of spinal stenosis, limited lifting allowed. is worried to the point of being distraught when I meet with her over what to do about placement for her after discharge from the hospital. She had promised never let him go to a half-way. But feels she is unable to care for him at home over the next 2 weeks given her medical issues. I think he now needs [id number] care . 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 Four children (Son [facility], son Stewart, daughter Anahi, Daughter guille) . Patient tells me he enjoys reading, reading the newspaper, reading books, watching TV. Services: As per above: Was getting caregiver 3 to 4 days a week through [facility]. Just in the last few days increased care through home health because of femur fracture. Impression of currents health status: Patient unable to answer. feels he is going downhill What bothers you the most: Being in the hospital and that I cannot walk What worries you the most: I hope it gets better Function: Ambulation:Used a walker for at least 4 years, due to neuropathy. Ambulating in wheelchair since nondisplaced femur fracture last week. Physical therapy reports he is a 2 person stand and pivot. ADLs: Prior to most recent fall, needed some assistance with dressing, iADLs: Needs assistance with all ADLs. Hearing:Hard of hearing, does not wear. Nutrition: SOft foods as dentures don't fit. Vision:Good Palliative Performance Scale % Ambulation Activity and Evidence of Disease Self Care Intake Level of Consciousness 100 Full Normal activity, no evidence of disease Full Normal Full 90 Full Normal activity, some evidence of disease Full Normal Full 80 Full Normal activity with effort, some evidence of disease Full Normal or reduced Full 70 Reduced Unable to do normal work, some evidence of disease Full Normal or reduced Full 60 Reduced Unable to do hobby or some housework, significant disease Occasional assist necessary Normal or reduced Full or confusion 50 Mainly sit/lie Unable to do any work, extensive disease Considerable assistance required Normal or reduced Full or confusion 40 Mainly in bed Unable to do any work, extensive disease Mainly assistance Normal or reduced Full, drowsy, or confusion 30 Totally bed bound Unable to do any work, extensive disease Total care Reduced Full, drowsy, or confusion 20 Totally bed bound Unable to do any work, extensive disease Total care Minimal sips Full, drowsy, or confusion 10 Totally bed bound Unable to do any work, extensive disease Total care Mouth care only Drowsy or coma 0 - - - - Patient Score: Currently 30. Spiritual history: Not queried Palliative review of systems: Pain:R leg has been hurting , but not right now Dyspnea: Has been short of breath the last few days, but not now. GI symptoms: Appetite:Does not answer (partially eaten pudding on his tray no other food) Depression:Does not answer Anxiety: None Emotional Distress: Spiritual/Existential Distress: Labs: Cr: CKD baseline 1.8-2.1 Liver panel:NL Albumin: >3.3 CBC:Mild anemia Advanced Care Planning: Advanced Directive: ON file from 2017 Health Care Agent: is primary [facility] COLST: reports he is always wanted to be a DNR/DNI. See advanced directive. Discussed further below Limitations: Assessment and Plan Assessment and plan (1) Palliative care patient: Status: Acute Assessment and plan: Mr. Morel is an 87-year-old gentleman with peripheral neuropathy resulting in frequent falls, mild cognitive impairment, oxygen dependent (presumably from COPD as ejection fraction is normal range), who suffered a nondisplaced right femur fracture in a fall about a week ago. Since that time he has had decline in cognition, oral intake and strength. There is a question of TIA versus seizure. He also exhibited some signs of delirium, not unexpected given recent injury and use of pain medications. Healthcare agent and caregiver is scheduled to have benign brain tumor removed in 7 days, which is making the situation extremely difficult and stressful. We discussed various discharge planning options: -Patient and 's first choice would be to have him return home. They currently have caregiver 3 to 4 days a week and can increase this. But they cannot find any caregivers to help at night. And he now with 2% transfer. does not think they can manage this in the short-term. - asked about hospice, as she felt it would give him additional help. Patient also has been pretty clear that should he become permanently incapacitated, he would want comfort measures only. Unfortunately, even with hospice level support, family would need to be able to physically manage transfers and repositioning on her own. Children are unable to be present for a week for now. -Patient has told that he never wants to go to half-way. However he has had 2 half-way stays, each time after hip fracture. He did fine during these admissions and was able to return to home. After consideration of options, at this time thinks the best plan will be to have him go to subacute rehab once he leaves the hospital. Plan would be to have him go there for about 2 weeks until a week after her surgery and then they will reevaluate. Son from [place] and daughter from [place], both very helpful people to have around (as per their mom), will be here in a week. They can provide extra support if patient is in [place] as well as assisting her mother with recuperation. At that time, situation will be reevaluated by the patient and the family. If there is a element of delirium, hopefully this will have cleared by then or at least improved. Hopefully also he would be stronger and able to transfer more easily. This was discussed with Emilee, case management and she will further explore with and patient. Palliative care team plans to follow-up with and patient July 31. Please call palliative care if you would like us to meet with him sooner. (2) Advanced care planning/counseling discussion: Status: Acute Assessment and plan: Patient's advance directive from 2016 clearly states that he does not want CPR or to be on a ventilator. Nor does he want a feeding tube. Reviewed and discussed with today (patient unwilling to discuss). She reiterates that he has wanted to be DNR/DNI for over 10 years. He does want basic infections treated and broken limbs repaired. However if he deteriorates, he would want comfort measures only. was concerned that if this is it , that he is deteriorating and this will be permanent, that may be this time to go to comfort measures only. Given situation and considering possibility of delirium, after consideration, she would like to continue to treat him with antibiotics and transfer as needed and reevaluate in 2 weeks. It does not sound like they have a COLST, more that this was stated in their advance care directive. I did attempt to call PCP office but was told to leave a message on answering machine. I feliberto up COLST form today stating DNR/DNI, transfer and treat with antibiotics and trial of IV hydration. (3) Altered mental status: Status: Acute Assessment and plan: I suspect patient has some element of delirium. Difficult situation given need to control pain of broken femur. He is also been using daily low doses of benzodiazepines for over 10 years. Recommend: -Continue to give scheduled Tylenol 1 g every 8 as ordered. - says that lidocaine Patches have been helpful but she is concerned that she does not see one on today. Recommend continuing this. -He has been receiving very low doses of oxycodone as needed (administration log shows that he is getting 2.5 mg approximately every 12 hours). We will continue this as needed for breakthrough bleeding. feels he should not get a Dee 2 inhibitor given his history of GI bleed. (4) Fracture of right femur: Status: Acute (5) Mild cognitive impairment: Status: Acute (6) Peripheral neuropathy: Status: Acute [facility] All Active Problems (Updated 07/29/22 @ 20:43 by Estefania Joiner MD) Peripheral neuropathy (Acute) Mild cognitive impairment (Acute) Advanced care planning/counseling discussion (Acute) Palliative care patient (Acute) Periprosthetic fracture around internal prosthetic right hip joint (Acute) Altered mental status (Acute) Fracture of right femur (Acute) Intractable pain (Acute) Ambulatory dysfunction (Acute) Wheezing (Acute) Multiple fractures of ribs of right side (Acute) Musculoskeletal pain of right upper extremity (Acute) Closed rib fracture (Acute) COVID-19 (Acute) Urinary frequency (Acute) Depression (Chronic) Anemia (Chronic) Hypertension (Chronic) DJD (degenerative joint disease) (Chronic) Sensorineural hearing loss (SNHL) of both ears (Acute) Ear itching (Acute) 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) Otorrhea of both ears (Acute 11/03/13) Otitis externa (Acute 11/03/13) Otalgia (Acute 11/18/13) 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, 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) Medical History Anxiety Cervical vertebral fracture s/p fall 01/17/17 CHF (congestive heart failure) Chronic renal insufficiency Chronic respiratory failure with hypoxia Conductive hearing loss in left ear (06/08/14) Dementia Esophageal reflux Hyperlipidemia Hypertension IBS (irritable bowel syndrome) Insomnia Kidney stones Migraine headache Multiple falls Multiple rib fractures Osteoarthritis Restless leg syndrome Thyroid mass Vertebral compression fracture Surgical History History of knee replacement History of right hip replacement Family History Father Stroke Mother Stroke Hypertension Pneumonia Sister Breast cancer Social History Smoking/Tobacco Use Status: Former Tobacco Use Quit Date: 03/23/1962 Smoking risk assessment performed?: Yes Alcohol Intake: current Alcohol Intake frequency: holidays/special occasions only Drug use: Never Household members: spouse 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 Lying quietly in bed with his eyes closed. When is not in room, answers slowly with single word answers. Denies pain at this time. Is able to drink through a straw and there is no aspiration or coughing noted. Results Last Vital Signs Temp 37.2 C 07/29/22 07:52 Pulse 95 H 07/29/22 07:52 Resp 17 07/29/22 07:52 BP 172/86 H 07/29/22 07:52 Pulse Ox 97 07/29/22 09:00 Labs 07/29/22 06:33 07/29/22 06:33 Labs: Laboratory Results - last 24 hr 07/28/22 07/29/22 07/29/22 19:59 06:33 06:33 WBC 6.96 RBC 3.65 L Hgb 11.3 L Hct 35.4 L MCV 97 H MCH 31.0 MCHC 31.9 L RDW 12.5 Plt Count 132 MPV 11.7 H Immature Gran % 0.4 Neutrophils % 82.6 Lymphocytes % 6.3 Monocytes % 7.9 Eosinophils % 2.4 Basophils % 0.4 Nucleated RBC % 0.0 Absolute Neutrophils 5.74 Absolute Lymphocytes 0.44 L Absolute Monocytes 0.55 Absolute Eosinophils 0.17 Absolute Basophils 0.03 Sodium 144 Potassium 4.7 4.0 Chloride 103 Carbon Dioxide 32.3 H Anion Gap 8.7 BUN 22 H Creatinine 1.8 H Est GFR (CKD-EPI 2020) 36.21 Glucose 105 Calcium 9.6 Magnesium 1.7 L Total Bilirubin 1.1 H Conjugated Bilirubin 0.3 H AST 14 L ALT 16 Alkaline Phosphatase 81 Total Protein 7.0 Albumin 3.6
--- NOTE | 2022-07-29 15:03 | W.PM.PROGNOT ---
Date of Service Date of service: 07/29/22 Time of Service: 15:04 Assessment and Plan Assessment and plan (1) Fracture of right femur: Status: Acute Assessment and plan: Previous bilateral hip fractures with repair. Went home from [facility] with plan to engage in rehab efforts. However, he remained sedentary and didn't walk for [address] Luna consulted, see note fentanyl patch ordered, oxycodone discontinued secondary to altered mental status PT ordered. (2) Hypertension: Status: Chronic Assessment and plan: Cont metoprolol. Monitor. (3) Dementia: Assessment and plan: No behavioral issues reported thus far. He was a fairly good historian regarding todays events. He does normally take trazadone at night but no specific dementia meds. (4) Anemia: Status: Chronic Assessment and plan: Hgb 9.3. Typically appears to be in the 9-10 range. (5) Multiple falls: Assessment and plan: H/O rib fxs. Now with femur fx. Rehab efforts. Palliative consult. (6) Discharge planning issues: Status: Acute Assessment and plan: patient confused and not taking po well today, met with palliative today and she wants to ultimately take him home as she promised she wouldn't send him back to a rehab. she is unable to physically take care of him now in his condition requiring assist of 2. she is agreeable to short rehab stay referrals placed and pending discussed with DR Etienne Subjective Subjective Patient reports: no new complaints Objective Last Vital Signs Temp 37.5 C 07/29/22 11:21 Pulse 96 H 07/29/22 11:21 Resp 18 07/29/22 11:21 BP 148/76 H 07/29/22 11:21 Pulse Ox 97 07/29/22 11:21 Laboratory Results - last 24 hr 07/28/22 07/29/22 07/29/22 19:59 06:33 06:33 WBC 6.96 RBC 3.65 L Hgb 11.3 L Hct 35.4 L MCV 97 H MCH 31.0 MCHC 31.9 L RDW 12.5 Plt Count 132 MPV 11.7 H Immature Gran % 0.4 Neutrophils % 82.6 Lymphocytes % 6.3 Monocytes % 7.9 Eosinophils % 2.4 Basophils % 0.4 Nucleated RBC % 0.0 Absolute Neutrophils 5.74 Absolute Lymphocytes 0.44 L Absolute Monocytes 0.55 Absolute Eosinophils 0.17 Absolute Basophils 0.03 Sodium 144 Potassium 4.7 4.0 Chloride 103 Carbon Dioxide 32.3 H Anion Gap 8.7 BUN 22 H Creatinine 1.8 H Est GFR (CKD-EPI 2020) 36.21 Glucose 105 Calcium 9.6 Magnesium 1.7 L Total Bilirubin 1.1 H Conjugated Bilirubin 0.3 H AST 14 L ALT 16 Alkaline Phosphatase 81 Total Protein 7.0 Albumin 3.6 Time Spent with Patient Time Spent with Patient: 25-34 minutes Time was spent: preparing to see the patient(eg.review tests), obtaining and/or reviewing separately otained hiistory, ordering medications,tests, procedures, referring, communicating with other health career guidance counselor, indepentently interpreting results and care coordination
--- NOTE | 2022-07-29 15:10 | NUR.NOTE ---
Addendum entered by Thalia Hernandez RN 07/29/22 17:26: Patient more lethargic compared this this morning. Was unable to take his afternoon tylenol because he was too drowsy. Clarified new order of fentanyl patch with charge nurse. Ok per provider to give. Original Note: Nursing Note: Patient more lethargic compared to this ludy
--- NOTE | 2022-07-29 15:56 | PT.INNT ---
Date of service: 07/29/22 Time of Service: 09:00 PT Notes Visit Reasons: Femur Fracture, TIA Patient declined therapy due to being too tired. Speech difficult to understand. RN states he is much different than yesterday, and he has been sleeping a lot.
--- NOTE | 2022-07-29 17:06 | PT.INNT ---
Date of service: 07/29/22 Time of Service: 16:38 PT Notes Visit Reasons: Femur Fracture, TIA Patient has 3 family members visiting. Patient reports he is in too much pain to do any moving. Family member states he has been waiting 2 hours for pain patch. Agreeable to therapy tomorrow.
[2022-07-29] MEDS: fentaNYL 12 MCG PATCH TD (17:17)
--- NOTE | 2022-07-29 17:27 | NUR.NOTE ---
Nursing Note: Patient continues to be very lethargic. Intermittently opening eyes to name. However, having difficulty following directions. Family attempting to feed patient. Discussed with family that patient should only be fed when more awake and following commands due to aspiration risk. stated, I know that. However, continued to attempt to feed patient.
[2022-07-29] MEDS: traZODone 100 MG TAB 200 MG PO (20:03)
[2022-07-30] VITALS (8 sets, daily range): BP systolic 98–129; BP diastolic 47–88; PULSE 64–81; RESP 16–20; TEMP 36.2–37.1; O2SAT 96–100
[2022-07-30 07:17] LABS: Abs Immature Grans 0.01 10^3/uL (0.0-0.06); Absolute Basophil Count 0.01 10^3/uL (0.0-0.2); Absolute Eosinophil Count 0.08 10^3/uL (0.0-0.7); Absolute Lymphocyte Count 0.63 10^3/uL (1.2-3.4); Absolute Monocyte Count 0.76 10^3/uL (0.1-0.8); Absolute Neutrophil Count 3.88 10^3/uL (1.2-6.7); Basophils % 0.2; Eosinophils % 1.5; HCT 34.1 % (40.0-50.0); HGB 10.8 g/dL (13.5-17.5); Immature Grans % 0.2; Lymphocytes % 11.7; MCH 30.7 pg (27.0-33.0); MCHC 31.7 % (32.0-36.0); MCV 97 fL (80-95); MPV 12.1 fL (8.0-11.0); Monocytes % 14.2; Neutrophils % 72.2; Platelet Count 155 10^3/uL (130-400); RBC 3.52 10^6/uL (4.36-5.78); RDW 12.7 % (11.8-14.1); RDW-SD 44.7 fL; WBC 5.37 10^3/uL (4.4-10.8)
[2022-07-30 07:27] LABS: BUN 36 mg/dL (7-18); CREATININE 2.5 mg/dL (0.70-1.30); Chloride 104 mmol/L (98-107); Estimated GFR 24.41 (mL/min/1.73m2); Glucose 118 mg/dL (74-106); Magnesium 1.9 mg/dL (1.8-2.4); Sodium 145 mmol/L (136-145)
[2022-07-30 07:31] LABS: Potassium 2.7 mmol/L (3.5-5.1)
--- NOTE | 2022-07-30 07:50 | CMPROGNOTE_ITS ---
Date of service: 07/30/22 Time of Service: 07:50 Care Management Progress Note Progress Note Text Progress Note Text: S/O: Sukhjinder is showing marked improvement, per report. [facility]'s Dasia called to offer placement for tomorrow; CM inquired to SUPERINTENDENT MECHANICAL if Sukhjinder would be medically ready. SUPERINTENDENT MECHANICAL to meet with , and advise next steps. CM continues to follow. A: 87 male admitted to [facility] 07/28/22 for femur fracture, TIA P: Anticipate Sukhjinder will discharge to [facility] for short term SNF prior to returning home. Transport via EMS anticipated at this time.
--- NOTE | 2022-07-30 07:50 | PDOC.CMPRO ---
Date of service: 07/30/22 Time of Service: 07:50 Care Management Progress Note Progress Note Text Progress Note Text: S/O: Sukhjinder is showing marked improvement, per report. [facility]'s Dasia called to offer placement for tomorrow; CM inquired to COFFIN MAKER if Sukhjinder would be medically ready. COFFIN MAKER to meet with , and advise next steps. CM continues to follow. A: 87 male admitted to [facility] 07/28/22 for femur fracture, TIA P: Anticipate Sukhjinder will discharge to [facility] for short term SNF prior to returning home. Transport via EMS anticipated at this time.
[2022-07-30] MEDS: Cyanocobalamin 500 MCG TAB 1000 MCG PO (08:29)
[2022-07-30] MEDS: LORazepam 0.5 MG TAB PO ×2 (08:29→20:22)
[2022-07-30] MEDS: Multivitamin TAB 1 TAB PO (08:29)
[2022-07-30] MEDS: Metoprolol CR 50 MG TABCR PO (08:29)
[2022-07-30] MEDS: Lansoprazole 30 MG CAPCR PO (08:29)
[2022-07-30] MEDS: Sertraline 100 MG TAB PO (08:29)
[2022-07-30] MEDS: Acetaminophen 500 MG TAB 1000 MG PO ×2 (08:29→20:22)
[2022-07-30] MEDS: Tamsulosin 0.4 MG CAPCR PO (08:29)
[2022-07-30] MEDS: Gabapentin 400 MG CAP PO (08:29)
[2022-07-30] MEDS: Magnesium Chloride 64 MG TABCR PO ×2 (08:29→20:22)
[2022-07-30] MEDS: Cholecalciferol (Vitamin D3) 1,000 UNIT TAB 2000 UNITS PO (08:29)
[2022-07-30] MEDS: POTASSIUM CHLORIDE 10 MEQ/100 ML BAG 100 MEQ IVPB ×4 (08:32→12:18)
[2022-07-30] MEDS: Lidocaine 5% Patch 1 PATCH TP (09:24)
[2022-07-30] MEDS: Potassium Chloride 20 MEQ TABCR 40 MEQ PO (09:24)
[2022-07-30] MEDS: Loperamide 2 MG CAP PO ×2 (11:24→20:22)
[2022-07-30 11:36] LABS: C Diff PCR Negative (Negative)
--- NOTE | 2022-07-30 14:24 | PGE_ITS ---
Date of Service Date of service: 07/30/22 Time of Service: 14:24 Assessment and Plan Assessment and plan (1) Fracture of right femur: Status: Acute Assessment and plan: non surgical hip fracture, orthopedics consults and can weight bear with walker as tolerated admitted for pain control , fentanyl patch started yesterday in setting of altered mental status and confusion on oxycodone, much better control today and no confusion PT following (2) Hypertension: Status: Chronic Assessment and plan: Cont metoprolol. Monitor. (3) Dementia: Assessment and plan: No behavioral issues and mental status improved today, improved po intake today. He does normally take trazadone at night but no specific dementia meds. (4) Anemia: Status: Chronic Assessment and plan: Hgb 9.3. Typically appears to be in the 9-10 range. (5) Multiple falls: Assessment and plan: H/O rib fxs. Now with femur fx. Rehab efforts. Palliative consulted, see note (6) Discharge planning issues: Status: Acute Assessment and plan: referrals placed for rehab and accepted at [facility], plan to discharge in am discussed with Dr Etienne Subjective Subjective Patient reports: no new complaints and pain is less Interval history since last seen: patient awake today, oriented to person and place. taking po and medication well. pain better managed with fentanyl patch Exam Const General: cooperative, comfortable and no acute distress Orientation: confused HENMT Head: normal to inspection Eyes Pupils: PERRL Resp Effort & Inspection: normal respiratory effort Auscultation: clear to auscultation bilaterally Cardio Rate: regular rate Rhythm: regular rhythm GI Inspection: normal to inspection Auscultation: normal bowel sounds Skin General skin exam: no rashes or lesions noted Neuro General: patient alert Extrem General: normal to inspection and full ROM Objective Last Vital Signs Temp 36.7 C 07/30/22 11:25 Pulse 73 07/30/22 11:25 Resp 18 07/30/22 11:25 BP 128/88 07/30/22 11:25 Pulse Ox 100 07/30/22 04:20 Laboratory Results - last 24 hr 07/30/22 07/30/22 07/30/22 06:30 06:30 09:47 WBC 5.37 RBC 3.52 L Hgb 10.8 L Hct 34.1 L MCV 97 H MCH 30.7 MCHC 31.7 L RDW 12.7 Plt Count 155 MPV 12.1 H Immature Gran % 0.2 Neutrophils % 72.2 Lymphocytes % 11.7 Monocytes % 14.2 Eosinophils % 1.5 Basophils % 0.2 Nucleated RBC % 0.0 Absolute Neutrophils 3.88 Absolute Lymphocytes 0.63 L Absolute Monocytes 0.76 Absolute Eosinophils 0.08 Absolute Basophils 0.01 Sodium 145 Potassium 2.7 L* D Chloride 104 Carbon Dioxide 32.0 Anion Gap 9.0 BUN 36 H Creatinine 2.5 H Est GFR (CKD-EPI 2020) 24.41 Glucose 118 H Calcium 9.0 Magnesium 1.9 Stl C.difficile Tox PCR Negative Time Spent with Patient Time Spent with Patient: 25-34 minutes Time was spent: preparing to see the patient(eg.review tests), obtaining and/or reviewing separately otained hiistory, ordering medications,tests, procedures, referring, communicating with other health healthcare applications analyst, indepentently interpreting results and care coordination
--- NOTE | 2022-07-30 15:07 | PT.INNT ---
Date of service: 07/30/22 Time of Service: 11:52 PT Notes Visit Reasons: Femur Fracture, TIA patient is sleeping. Therapist tried to wake him but was unsuccessful. RN reports that patient does better earlier in the morning.
[2022-07-30] MEDS: POTASSIUM CHLORIDE/D5-0.45NACL 1,000 ML 125 MEQ IV (15:33)
--- NOTE | 2022-07-30 17:08 | PTTR_ITS ---
Date of service: 07/30/22 Time of Service: 16:20 PT Notes Visit Reasons: Femur Fracture, TIA Inpatient Physical Therapy Treatment Note [facility] Date: 07/30/22 PRECAUTIONS: Fall, standard, activity as tolerated. Weight bearing as tolerated R LE SUBJECTIVE: Patient reports feeling very fatigued, supine in bed but alert, agreeable to therapy. OBJECTIVE: PAIN: Patient doesn't report pain, but demonstrates repeated nonverbal indicators of pain BED MOBILITY/TRANSFERS Rolling L/R: Independent Supine-sit: min assist, taught patient to use leg aircraft motor mechanic Sit-supine: min assist, taught patient to use leg aircraft motor mechanic Sit-stand: mod assist with gait belt Stand-sit: min assist with gait belt, no cue required for patient to reach back for chair to sit safely Bed-Chair: min assist with gait belt, no cue required for patient to reach back for chair to sit safely Chair-bed: min assist with gait belt, no cue required for patient to reach back for chair to sit safely GAIT Assistive Device: front wheeled walker Weight bearing: as tolerated Assist: min Distance: 10 feet Deviation: Patient demonstrates reduced stride length R>L, reduced step height R>L, hesitation to bear weight on RLE, stooped posture. THEREX: Seated in recliner; long arc quads x10, heel raises x10, toe raises x10, mini marches x5 ASSESSMENT: Patient reports being very tired at the end of therapy, but about the same as before we started therapy. Does complain of a little pain around right hip and groin. PLAN: Patient reports discharging at 8 am tomorrow to go to SNF. TREATMENT CODE/TIME: 21846 THEREX 15 minutes, 49234 GAIT 15 minutes, 01414 THERACT 15 minutes beginning at 16:20
[2022-07-30 19:14] LABS: Anion Gap 12.6 mmol/L (3-11); BUN 45 mg/dL (7-18); CO2 28.4 mmol/L (21.0-32.0); CREATININE 2.9 mg/dL (0.70-1.30); Calcium 8.5 mg/dL (8.5-10.1); Chloride 103 mmol/L (98-107); Estimated GFR 20.43 (mL/min/1.73m2); Glucose 129 mg/dL (74-106); Potassium 3.2 mmol/L (3.5-5.1); Sodium 144 mmol/L (136-145)
[2022-07-30] MEDS: traZODone 100 MG TAB 200 MG PO (20:22)
[2022-07-31] VITALS (7 sets, daily range): BP systolic 110–134; BP diastolic 63–77; PULSE 51–75; RESP 16–20; TEMP 36.4–36.9; O2SAT 91–97
--- NOTE | 2022-07-31 | DI.US_ITS ---
Exam(s) US RENAL EXAM: US RENAL CLINICAL HISTORY: RK on CKD TECHNIQUE: Ultrasound of both kidneys performed using standard protocol. COMPARISON: CT CT CHEST PE CTA from 07/27/2022 FINDINGS: KIDNEYS: There are multiple cysts in both kidneys. Largest on the right side measures 4 by 3.9 by 5 cm located inferiorly. The largest on the left side measures 2.8 x 2.9 x 3.2 cm. No solid renal mas ses. No intrarenal calculi. No hydronephrosis. URINARY BLADDER: Prevoid volume is 80 cc Postvoid volume is patient unable to void cc There are multiple calculi in the urinary bladder, largest measuring 2.3 cm. Ureterovesical jets: Not identified. IMPRESSION: 1. Multiple benign bilateral renal cysts. No solid renal masses, intrarenal calculi nor hydronephro sis of the kidneys. 2. There are multiple calculi noted in the urinary bladder, these ranging up to 2.3 cm. Discussed by phone with hospitalist. DATA REPOSITORY:
[2022-07-31] MEDS: Loperamide 2 MG CAP PO ×2 (04:16→20:05)
[2022-07-31 07:06] LABS: BUN 49 mg/dL (7-18); CREATININE 3.1 mg/dL (0.70-1.30); Calcium 8.6 mg/dL (8.5-10.1); Chloride 105 mmol/L (98-107); Estimated GFR 18.86 (mL/min/1.73m2); Glucose 109 mg/dL (74-106); Potassium 3.1 mmol/L (3.5-5.1); Sodium 141 mmol/L (136-145)
[2022-07-31] MEDS: Lansoprazole 30 MG CAPCR PO (07:17)
[2022-07-31 08:19] LABS: Lab Add On Test DONE
[2022-07-31 08:33] LABS: Creatine Kinase 20 U/L (39-308)
--- NOTE | 2022-07-31 09:16 | DSE_ITS ---
Date of service: 07/31/22 Time of Service: 09:16 DS: Diagnosis Discharge Diagnosis (1) Fracture of right femur: Status: Acute (2) Hypertension: Status: Chronic (3) Dementia: (4) Anemia: Status: Chronic (5) Multiple falls: Discharge Plan Disposition Patient Disposition: [facility]) Condition: Stable Discharge Details Reason For Visit: Femur Fracture, TIA Admit Date/Time: 07/28/22 00:43 Admit Provider: Iglesia Woo Attending Provider: Iglesia Woo Primary Care Provider: Eufemia Arora Hospital Course Hospital Course: This is an 87-year-old male patient with a past medical history significant for dementia depression hypertension anemia who fell at home and suffered a proximal right fracture of his femur. He was originally seen at [facility] and discharged to home as she promised that she would never send him to rehab again. Pain medications included Tylenol tramadol and oxycodone. He did not do well at home with his pain poorly managed and reportedly had an episode of alte red mental status. She brought him to our emergency department for evaluation his work-up in the emergency department included a head CT which was negative. Labs unremarkable. He was admitted to the medical surgical unit under hospitalist services for further evaluation. An MRI/MRA of the head and neck was placed along with a neurology consultation. He did return to his baseline. Timeline rules out TIA. Brain MRI without evidence of acute stroke.? Symptoms likely neurological decompensation in setting of pain medications, dehydration, poor PO intake, increased pain, etc on top of dementia.? Seizure and post-ictal state remains in the differential and recommendations for EEG, which will need to be outpatient if needed.? He should continue aspirin 81mg daily and his statin. He should follow-up in neurology clinic in 4-6 weeks. His pain medication was adjusted and the oxycodone was discontinued and he was started on fentanyl patch 12 mcg. His pain was better managed and he continued working with physical therapy slowly progressing. They recommend ongoing inpatient rehabilitation prior to returning home. Case management has been following and referrals have been placed at [facility] per family request. He was excepted and will be transported there hospital course also included a urinary tract infection growing E. coli. He was treated with fosfomycin. Postvoid bladder scan showed 200 mL of urine after emptying 500 cc. His renal ultrasound showed multiple benign bilateral renal cysts with no solid renal masses intrarenal calculi or hydronephrosis. There are multiple calculi noted in his bladder. He also experienced acute on chronic renal injury, thought to be pre-renal which responded to IV hydration. He also received electrolyte replacement. He remains hemodynamically stable and at his baseline cognitively. he will be transported to [facility] for ongoing rehabilitation prior to returning home. discharge discussed with DR Etienne . Home Meds and New Rx's Prescriptions: New fentanyl 12 mcg/hr Patch 72 Hour 12 mcg transdermal Q72H Qty: 2 0RF aspirin 81 mg capsule 81 mg PO DAILY Qty: 30 0RF atorvastatin 40 mg tablet 40 mg PO DAILY Qty: 30 0RF Continued lansoprazole 30 mg capsule,delayed release(DR/EC) 30 mg PO DAILY sertraline 100 mg tablet 100 mg PO 1XD Rx Instructions: takes in AM multivitamin Tablet 1 tab PO DAILY loperamide-simethicone 2-125 mg tablet 1 tab PO Q3H PRN Rx Instructions: do not exceed 4 tabs in 24 hrs Systane (PF) 0.4-0.3 % dropperette 1 drp ophthalmic (eye) BID-QID PRN mometasone 0.1 % cream 1 applic topical DAILY PRN (Reason: itching) Rx Instructions: externally to ear canals with finger tip acetic acid 2 % solution 3 drp otic (ear) TID acetaminophen 500 mg Tablet 1,000 mg PO Q8H Qty: 30 0RF albuterol sulfate [Ventolin HFA] 90 mcg/actuation Hfa Aerosol Inhaler 2 puff inhalation Q4H PRN PRN (Reason: shortness of breath or wheezing) Qty: 0 0RF ascorbic acid (vitamin C) [Vitamin C] 500 mg Tablet 1,000 mg PO BID Qty: 30 0RF cholecalciferol (vitamin D3) 25 mcg (1,000 unit) Tablet 2,000 unit PO DAILY Qty: 14 0RF cyanocobalamin (vitamin B-12) [Vitamin B-12] 500 mcg Tablet 1,000 mcg PO DAILY Qty: 60 0RF lidocaine 5 % Adhesive Patch,Medicated 1 patch topical DAILY Qty: 30 0RF Combivent Respimat 20-100 mcg/actuation Mist 1 puff inhalation QID PRN PRNQty: 0 0RF zinc sulfate [Zinc-220] 50 mg zinc (220 mg) Capsule 220 mg PO DAILY Qty: 7 0RF metoprolol succinate [Toprol XL] 50 mg tablet extended release 24 hr 50 mg PO DAILY Qty: 30 0RF gabapentin 400 mg capsule 400 mg PO DAILY Qty: 0 0RF Rx Instructions: Take according to the schedule you were taking gabapentin on at home sertraline 50 mg Tablet 50 mg PO HS Changed tamsulosin [Flomax] 0.4 mg capsule 0.4 mg PO DAILY Qty: 0 0RF trazodone 100 mg tablet 200 mg PO QHS PRNQty: 0 0RF Discontinued oxycodone 5 mg capsule 5 mg PO Q6H PRN (Reason: pain) Qty: 9 0RF oxycodone 5 mg Tablet 5 mg PO BID PRN MDD 10 mg PRN (Reason: pain) Qty: 6 0RF Discharge Instructions Instructions: Hip Fracture (ED) Additional Instructions: weight bear as tolerated, walker at all times for gait safety and stability. non pharmacologic pain modalities as needed. will follow up outpatient with neurology. EEG not available while inpatient, will defer to outpatient team and follow up with neurology. Stand Alone Forms: Nursing Discharge Form Referrals: Eufemia Arora [Primary Care Provider] - (Follow up per [facility] ) Candis Florence MD [ [facility] STAFF PHYSICIAN] - Activity:: Activity as Tolerated Equipment/Supplies:: No Equipment Needed Diet:: As Tolerated Discharge Orders Discharge Orders: Discharge Order (Routine); Ordered 07/31/22 Ordered By: Angelina Trevizo DS: Summary Time Spent with Patient providing and/or coordinating discharge services: Greater than 30 minutes Status at Discharge Functional status at discharge: uses cane/walker Overall status at discharge: patient is not back to baseline Mental Status: mental status grossly normal Speech and Movement: speech and movement normal Mood: congruent mood Affect: normal affect Exam Const General: cooperative, comfortable and no acute distress Orientation: confused HENMT Head: normal to inspection Mouth: oral mucosae normal Eyes Pupils: PERRL Chest Chest: normal inspection of the chest Resp Effort & Inspection: normal respiratory effort Auscultation: clear to auscultation bilaterally Cardio Rate: regular rate Rhythm: regular rhythm GI Inspection: normal to inspection Auscultation: normal bowel sounds Skin General skin exam: no rashes or lesions noted Neuro General: patient alert Extrem General: normal to inspection and full ROM Psych Mental Status: mental status grossly normal Speech and Movement: speech and movement normal Mood: congruent mood Affect: normal affect DS: Data Vitals/I&O Vitals and I&O: Vital Signs Temperature 36.7 C 07/31/22 07:37 Temperature Source Tympanic 07/31/22 07:37 Pulse 51 L 07/31/22 07:37 Pulse Rhythm Regular 07/31/22 07:23 Pulse 84 07/28/22 02:00 Respiratory Rate 16 07/31/22 07:37 Respiratory Effort Normal 07/31/22 07:23 Respiratory Depth Normal 07/31/22 07:23 Respiratory Pattern Normal 07/31/22 07:23 Blood Pressure 110/67 07/31/22 07:37 Blood Pressure Mean 82 07/28/22 01:40 Blood Pressure Position Sitting 07/27/22 17:47 Pulse Oximetry 95 07/31/22 07:37 Oxygen Delivery Method Nasal Cannula 07/31/22 07:37 Oxygen Flow Rate 2 07/31/22 07:37 Pain Level 8 07/31/22 07:37 Comment RN informed of BP 07/29/22 07:52 Intake & Output 07/30/22 07/30/22 07/31/22 11:59 23:59 11:59 Intake Total 406.667 / 406.667 Balance 406.667 / 406.667 Weight 91.8 kg Intake: IV 286.667 / 286.667 Oral 120 / 120 Other: Urine Color Yellow Yellow Yellow Urine Appearance Clear Clear Urine Odor Normal Comment mixed incontinence x3 Stool Size Moderate Large Moderate Stool Characteristics Soft Liquid Liquid Liquid Mucoid Mucoid Brown Brown Voiding Methods Diaper Incontinent Data Completed and Pending Labs on day of discharge: Labs from last 24 hours 07/31/22 07/31/22 07/31/22 06:20 06:20 06:20 Sodium 141 Potassium 3.1 L Chloride 105 Carbon Dioxide 27.0 Anion Gap 9.0 BUN 49 H Creatinine 3.1 H Est GFR (CKD-EPI 2020) 18.86 Glucose 109 H Calcium 8.6 Magnesium 2.0 Creatine Kinase 20 L Stl C.difficile Tox PCR Add-On Test Request DONE 07/30/22 07/30/22 18:50 09:47 Sodium 144 Potassium 3.2 L Chloride 103 Carbon Dioxide 28.4 Anion Gap 12.6 H BUN 45 H Creatinine 2.9 H Est GFR (CKD-EPI 2020) 20.43 Glucose 129 H Calcium 8.5 Magnesium Creatine Kinase Stl C.difficile Tox PCR Negative Add-On Test Request PFSH All Active Problems (Updated 07/31/22 @ 11:55 by Estefania Joiner MD) Acute on chronic renal failure (Acute) Discharge planning issues (Acute) Peripheral neuropathy (Acute) Mild cognitive impairment (Acute) Advanced care planning/counseling discussion (Acute) Palliative care patient (Acute) Periprosthetic fracture around internal prosthetic right hip joint (Acute) Altered mental status (Acute) Fracture of right femur (Acute) Intractable pain (Acute) Ambulatory dysfunction (Acute) Wheezing (Acute) Multiple fractures of ribs of right side (Acute) Musculoskeletal pain of right upper extremity (Acute) Closed rib fracture (Acute) COVID-19 (Acute) Urinary frequency (Acute) Depression (Chronic) Anemia (Chronic) Hypertension (Chronic) DJD (degenerative joint disease) (Chronic) Sensorineural hearing loss (SNHL) of both ears (Acute) Ear itching (Acute) 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) Otorrhea of both ears (Acute 11/03/13) Otitis externa (Acute 11/03/13) Otalgia (Acute 11/18/13) 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, 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) Medical History Anxiety Cervical vertebral fracture s/p fall 01/17/17 CHF (congestive heart failure) Chronic renal insufficiency Chronic respiratory failure with hypoxia Conductive hearing loss in left ear (06/08/14) Dementia Esophageal reflux Hyperlipidemia Hypertension IBS (irritable bowel syndrome) Insomnia Kidney stones Migraine headache Multiple falls Multiple rib fractures Osteoarthritis Restless leg syndrome Thyroid mass Vertebral compression fracture Surgical History History of knee replacement History of right hip replacement Family History Father Stroke Mother Stroke Hypertension Pneumonia Sister Breast cancer Social History Smoking/Tobacco Use Status: Former Tobacco Use Quit Date: 03/23/1962 Smoking risk assessment performed?: Yes Alcohol Intake: current Alcohol Intake frequency: holidays/special occasions only Drug use: Never Household members: spouse 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
[2022-07-31] MEDS: Potassium Chloride 20 MEQ TABCR 40 MEQ PO ×2 (09:30→09:38)
[2022-07-31] MEDS: Multivitamin TAB 1 TAB PO (09:55)
[2022-07-31] MEDS: LORazepam 0.5 MG TAB PO ×2 (09:55→20:05)
[2022-07-31] MEDS: Magnesium Chloride 64 MG TABCR PO ×2 (09:55→20:05)
[2022-07-31] MEDS: Cyanocobalamin 500 MCG TAB 1000 MCG PO (09:55)
[2022-07-31] MEDS: Metoprolol CR 50 MG TABCR PO (09:55)
[2022-07-31] MEDS: Gabapentin 400 MG CAP PO (09:56)
[2022-07-31] MEDS: Acetaminophen 500 MG TAB 1000 MG PO ×3 (09:56→20:05)
[2022-07-31] MEDS: Cholecalciferol (Vitamin D3) 1,000 UNIT TAB 2000 UNITS PO (09:56)
[2022-07-31] MEDS: Tamsulosin 0.4 MG CAPCR PO (09:56)
[2022-07-31] MEDS: Sertraline 100 MG TAB PO (09:56)
[2022-07-31] MEDS: Docusate Sodium 100 MG CAP PO (09:57)
[2022-07-31] MEDS: Lidocaine 5% Patch 1 PATCH TP (09:57)
--- NOTE | 2022-07-31 11:35 | PCPN_ITS ---
Date of service: 07/31/22 Time of Service: 09:30 Assessment and Plan Assessment and plan (1) Palliative care patient: Status: Acute (2) Advanced care planning/counseling discussion: Status: Acute Assessment and plan: Patient was able to talk with me further today about his goals and values. Highest priority for him is to return home. But he understands that his needs to go through surgery and that he needs to go to the [facility] during this time until she is able to care for him again with assistance. Shared with me the history of their marriage, their children, his work history. 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 He reports that up until last summer he was able to mow the lawn using his portable oxygen concentrator. He is looking forward to his [facility] upcoming visit next week. Unable to identify any other specific wishes or goals. Additional time spent with supportive counseling. Reviewed past experience at [facility] during height of COVID and need to 19 everyone. Discussed how this would be different. Reviewed coping strategies. (3) Altered mental status: Status: Acute Assessment and plan: I suspect patient had delirium due to combination of hospitalization, recent fracture and possibly pain medicine (tramadol being chief suspect). Suggest avoiding tramadol in the future. But would observe carefully if oxycodone used for breakthrough pain. Pain seems much better controlled today. (4) Fracture of right femur: Status: Acute Assessment and plan: Patient actively engaged in physical therapy. We discussed timeframe needed to heal fractures, coping strategies to deal with frustration while waiting, need to continue to engage in physical therapy. He will continue in rehab. (5) Mild cognitive impairment: Status: Acute (6) Peripheral neuropathy: Status: Acute (7) Chronic renal insufficiency: (8) Acute on chronic renal failure: Status: Acute Assessment and plan: Work-up in process to identify reversible causes of worsening renal function. If renal function continues to worsen, we should be mindful that patient and had previously stated that he would want to be admitted to hospice should he have a terminal illness. For now he needs to go to [facility] until is gone through her neurosurgery and is able to be home to coordinate caregivers, etc. Copy of this note will be sent to his PCP so she is aware of this. Subjective Subjective Interval history since last seen: Follow-up visit with patient today: 1.Mood and Cognition: Patient with dramatic turnaround in both mood and cognition yesterday. Turns out he was unaware of 's upcoming surgery. When she told him about this, and that this was the reason he needs to go to [facility], he is agreeable to go. All staff report that he is much more talkative and upbeat. Participating in physical therapy as well. No further picking noted. 2.Pain Management: Started on fentanyl patch 12 mcg yesterday. No sedation noted, actually appears more awake, alert, engaged. This may be due to better pain control. There is a question of delirium when I saw him 2 days ago. 3.Acute on Chronic Renal Failure: Unfortunately renal function worsening over last 48 hours. Thus far not responding to gentle IV for fluid bolus. Work-up in progress by hospitalist. very concerned this will delay transfer to [facility]. 4.Discharge Planning: Patient finally agreeable to going to [facility] short-term un til has recovered from surgery and he is able to walk again. Happily, bed available at [facility] in their area. Patient shared his experience with being in [facility] and in isolation for 6 months under quarantine during the height of [facility]. It was an awful experience and he shared this with me. Additional history today from , via phone discussion, as she had not come to the hospital (thought he was going to [facility] this morning). Exam Narrative Exam Narrative: Patient sitting in chair, oxygen on. Quite talkative. Shared many stories, answers questions quickly. Followed directions easily. Color actually looks slightly improved. Mucous membranes dried. No respiratory distress. Occasiona l left shoulder discomfort. Objective Last Vital Signs Temp 36.7 C 07/31/22 07:37 Pulse 51 L 07/31/22 07:37 Resp 16 07/31/22 07:37 BP 110/67 07/31/22 07:37 Pulse Ox 95 07/31/22 07:37 Laboratory Results - last 24 hr 07/30/22 07/30/22 07/31/22 09:47 18:50 06:20 Sodium 144 141 Potassium 3.2 L 3.1 L Chloride 103 105 Carbon Dioxide 28.4 27.0 Anion Gap 12.6 H 9.0 BUN 45 H 49 H Creatinine 2.9 H 3.1 H Est GFR (CKD-EPI 2020) 20.43 18.86 Glucose 129 H 109 H Calcium 8.5 8.6 Magnesium Creatine Kinase Stl C.difficile Tox PCR Negative Add-On Test Request 07/31/22 07/31/22 06:20 06:20 Sodium Potassium Chloride Carbon Dioxide Anion Gap BUN Creatinine Est GFR (CKD-EPI 2020) Glucose Calcium Magnesium 2.0 Creatine Kinase 20 L Stl C.difficile Tox PCR Add-On Test Request DONE
[2022-07-31 13:11] LABS: Bilirubin Negative (Negative); Blood Moderate (Negative); Clarity Cloudy (Clear); Glucose Negative (Negative); Ketones Negative (Negative); Leukocyte Esterase Moderate (Negative); Nitrite Positive (Negative); Urobilinogen 0.2 mg/dL (Up to 0.2)
[2022-07-31 13:22] LABS: Bacteria Many HPF (Negative); C & S Indicated? Yes; WBC >50 HPF (0-5)
[2022-07-31 13:45] LABS: Creatinine,Urine 198.83 mg/dL; Sodium, Urine 29 mmol/L
[2022-07-31] MEDS: Fosfomycin Tromethamine 3 GM PACKET PO (13:55)
--- NOTE | 2022-07-31 15:18 | PDOC.CMPRO ---
Date of service: 07/31/22 Time of Service: 15:18 Care Management Progress Note Progress Note Text Progress Note Text: S/O: Discharge to [facility] delayed today due to need for further kidney function monitoring per MD. No change to overall plan, CM continues to follow. A: 87 male admitted to [facility] 07/28/22 for femur fracture, TIA P: Sukhjinder will discharge to [facility] for short term SNF prior to returning home. He will transport via EMS coordinated by this data analyst report writer.
--- NOTE | 2022-07-31 17:22 | PT.INTREAT ---
Date of service: 07/31/22 Time of Service: 09:00 PT Notes Visit Reasons: Femur Fracture, TIA Inpatient Physical Therapy Treatment Note [facility] Date: 07/31/22 PRECAUTIONS: Fall, standard, activity as tolerated. SUBJECTIVE: Patient sitting up in bed, agreeable to therapy OBJECTIVE: PAIN: significant, worse than yesterday. BED MOBILITY/TRANSFERS Rolling L/R: independent Supine-sit: independent Sit-supine: independent Sit-stand: min assist Stand-sit: verbal cues, contact guard Bed-Chair: contact guard Chair-bed: contact guard GAIT Assistive Device: front wheeled walker Weight bearing: as tolerated Assist: contact guard Distance: 15 feet Deviation: step to gait pattern, reduced stance phase RLE, reduced step height bilaterally R>L THEREX: Long arc quads x10, heel raises x10, toe raises x10 ASSESSMENT: Patient returns to bed at end of treatment, call montejo and table within reach. Tolerated therapy well PLAN: continue treatment per plan of care TREATMENT CODE/TIME: 16553 ther ex 30 minutes, 29791 ther act 14 minutes, 94450 gait 14 minutes beginning at 9:00
--- NOTE | 2022-07-31 18:34 | PGE_ITS ---
Date of Service Date of service: 07/31/22 Time of Service: 18:34 Assessment and Plan Assessment and plan (1) Acute on chronic renal failure: Status: Acute Assessment and plan: FENA 0.3 % suggesting pre-renal which clinically fits. will give IV fluids, recheck labs in am taking good PO avoid nephrotoxic drugs. (2) Fracture of right femur: Status: Acute Assessment and plan: non surgical hip fracture, orthopedics consults and can weight bear with walker as tolerated admitted for pain control , fentanyl patch started yesterday in setting of altered mental status and confusion on oxycodone, much better control today and no confusion PT following (3) Hypertension: Status: Chronic Assessment and plan: Cont metoprolol. Monitor. (4) Dementia: Assessment and plan: No behavioral issues and mental status improved today, improved po intake today. He does normally take trazadone at night but no specific dementia meds. (5) Anemia: Status: Chronic Assessment and plan: Hgb 9.3. Typically appears to be in the 9-10 range. (6) Multiple falls: Assessment and plan: H/O rib fxs. Now with femur fx. Rehab efforts. Palliative consulted, see note (7) Discharge planning issues: Status: Acute Assessment and plan: referrals placed for rehab and accepted at [facility], plan to discharge in am discussed with Dr Etienne Subjective Subjective Patient reports: no new complaints, feels better, tolerating liquids well, tolerating a regular diet and afebrile; denies shortness of breath Objective Last Vital Signs Temp 36.9 C 07/31/22 15:55 Pulse 74 07/31/22 15:55 Resp 20 07/31/22 15:55 BP 134/63 07/31/22 15:55 Pulse Ox 91 L 07/31/22 15:55 Laboratory Results - last 24 hr 07/30/22 07/31/22 07/31/22 18:50 06:20 06:20 Sodium 144 141 Potassium 3.2 L 3.1 L Chloride 103 105 Carbon Dioxide 28.4 27.0 Anion Gap 12.6 H 9.0 BUN 45 H 49 H Creatinine 2.9 H 3.1 H Est GFR (CKD-EPI 2020) 20.43 18.86 Glucose 129 H 109 H Calcium 8.5 8.6 Magnesium Creatine Kinase Urine Color Urine Clarity Urine pH Ur Specific [place] Urine Protein Urine Ketones Urine Blood Urine Nitrite Urine Bilirubin Urine Urobilinogen Ur Leukocyte Esterase Urine RBC Urine WBC Ur Epithelial Cells Urine Crystals Urine Bacteria Urine Mucus Ur Culture Indicated? Ur Random Creatinine Ur Random Sodium Urine Glucose Add-On Test Request DONE 07/31/22 07/31/22 07/31/22 06:20 13:00 13:00 Sodium Potassium Chloride Carbon Dioxide Anion Gap BUN Creatinine Est GFR (CKD-EPI 2020) Glucose Calcium Magnesium 2.0 Creatine Kinase 20 L Urine Color Yellow Urine Clarity Cloudy Urine pH 5.0 Ur Specific [place] 1.020 Urine Protein 100 H Urine Ketones Negative Urine Blood Moderate H Urine Nitrite Positive H Urine Bilirubin Negative Urine Urobilinogen 0.2 Ur Leukocyte Esterase Moderate H Urine RBC Not Applicable Urine WBC >50 H Ur Epithelial Cells Not Applicable Urine Crystals Not Applicable Urine Bacteria Many Urine Mucus Not Applicable Ur Culture Indicated? Yes Ur Random Creatinine 198.83 Ur Random Sodium 29 Urine Glucose Negative Add-On Test Request Time Spent with Patient Time Spent with Patient: 35-49 minutes Time was spent: preparing to see the patient(eg.review tests), obtaining and/or reviewing separately otained hiistory, ordering medications,tests, procedures, referring, communicating with other health career coach, indepentently interpreting results and care coordination
[2022-07-31] MEDS: traZODone 100 MG TAB 200 MG PO (20:05)
[2022-07-31] MEDS: Lidocaine Patch Removal 1 EACH TP (21:51)
[2022-08-01] VITALS (8 sets, daily range): BP systolic 125–132; BP diastolic 64–75; PULSE 66–85; RESP 18–20; TEMP 36.2–36.7; O2SAT 96–98
[2022-08-01] MEDS: POTASSIUM CHLORIDE/D5-0.45NACL 1,000 ML 150 MEQ IV (06:03)
[2022-08-01 06:49] LABS: Abs Immature Grans 0.01 10^3/uL (0.0-0.06); Absolute Basophil Count 0.01 10^3/uL (0.0-0.2); Absolute Eosinophil Count 0.53 10^3/uL (0.0-0.7); Absolute Lymphocyte Count 1.27 10^3/uL (1.2-3.4); Absolute Monocyte Count 1.03 10^3/uL (0.1-0.8); Basophils % 0.2; Eosinophils % 9.5; HCT 33.2 % (40.0-50.0); HGB 10.3 g/dL (13.5-17.5); Immature Grans % 0.2; Lymphocytes % 22.9; MCH 30.3 pg (27.0-33.0); MCV 98 fL (80-95); MPV 11.8 fL (8.0-11.0); Monocytes % 18.6; Neutrophils % 48.6; Platelet Count 173 10^3/uL (130-400); RDW 12.7 % (11.8-14.1); RDW-SD 45.7 fL; WBC 5.55 10^3/uL (4.4-10.8)
[2022-08-01 07:01] LABS: Anion Gap 8.6 mmol/L (3-11); BUN 52 mg/dL (7-18); CO2 27.4 mmol/L (21.0-32.0); CREATININE 3.1 mg/dL (0.70-1.30); Chloride 106 mmol/L (98-107); Estimated GFR 18.86 (mL/min/1.73m2); Glucose 107 mg/dL (74-106); Sodium 142 mmol/L (136-145)
[2022-08-01] MEDS: Lansoprazole 30 MG CAPCR PO (07:26)
[2022-08-01] MEDS: Cyanocobalamin 500 MCG TAB 1000 MCG PO (08:21)
[2022-08-01] MEDS: LORazepam 0.5 MG TAB PO (08:21)
[2022-08-01] MEDS: Metoprolol CR 50 MG TABCR PO (08:21)
[2022-08-01] MEDS: Magnesium Chloride 64 MG TABCR PO (08:22)
[2022-08-01] MEDS: Multivitamin TAB 1 TAB PO (08:22)
[2022-08-01] MEDS: Acetaminophen 500 MG TAB 1000 MG PO (08:22)
[2022-08-01] MEDS: Sertraline 100 MG TAB PO (08:22)
[2022-08-01] MEDS: Docusate Sodium 100 MG CAP PO (08:22)
[2022-08-01] MEDS: Tamsulosin 0.4 MG CAPCR PO (08:22)
[2022-08-01] MEDS: Cholecalciferol (Vitamin D3) 1,000 UNIT TAB 2000 UNITS PO (08:22)
[2022-08-01] MEDS: Gabapentin 400 MG CAP PO (08:22)
[2022-08-01] MEDS: Potassium Chloride 20 MEQ TABCR 40 MEQ PO (09:14)
[2022-08-01] MEDS: Lidocaine 5% Patch 1 PATCH TP (10:06)
--- NOTE | 2022-08-01 11:36 | INDS_ITS ---
PT Notes Visit Reasons: Femur Fracture, TIA Physical Therapy Inpatient Discharge Summary Treatment Dates: 07/28/2022 - 08/01/22 Number of Sessions: 3 Referring Doctor: Iglesia Woo MD PT Orders: PT CONSULT: Eval/treat Precautions: Fall. Standard. WBAT on the R LE with AD. This document serves as a summary of care. No PT services were provided on this date. Patient Profile/Admitting Diagnosis: Sukhjinder is an 87-year-old male with dementia sent to the ED on 07/27/2022 with altered mental status and left facial droop. Patient was admitted to the MedSurg unit for continued close monitoring of altered mental status, periprosthetic fracture of internal prosthetic right hip joint sustained from a fall, hypertension, anemia, and multiple falls. He participated in 3 PT sessions over the course of 5 days, and was able to discharge to SNF today. PMHX: All Active Problems?(Updated 07/28/22 @ 12:33 by Yunior Luna MD) Periprosthetic fracture around internal prosthetic right hip joint (Acute) Altered mental status (Acute) Fracture of right femur (Acute) Intractable pain (Acute) Ambulatory dysfunction (Acute) Wheezing (Acute) Multiple fractures of ribs of right side (Acute) Musculoskeletal pain of right upper extremity (Acute) Closed rib fracture (Acute) COVID-19 (Acute) Urinary frequency (Acute) Depression (Chronic) Anemia (Chronic) Hypertension (Chronic) DJD (degenerative joint disease) (Chronic) Sensorineural hearing loss (SNHL) of both ears (Acute) Ear itching (Acute) 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 Anxiety Cervical vertebral fracture s/p fall 01/17/17 CHF (congestive heart failure) Chronic renal insufficiency Chronic respiratory failure with hypoxia Conductive hearing loss in left ear (06/08/14) Dementia Esophageal reflux Hyperlipidemia Hypertension IBS (irritable bowel syndrome) Insomnia Kidney stones Migraine headache Multiple falls Multiple rib fractures Osteoarthritis Restless leg syndrome Thyroid mass Vertebral compression fracture Surgical History? History of knee replacement History of right hip replacement Equipment Owned/DME: [employer] Subjective: None obtained as patient has discharged to SNF. Objective: ROM: Right Upper Extremity: Shoulder Flexion WFL. Shoulder abduction WFL. Elbow flexion WFL. Wrist flexion WFL. Functional opening and closing of hand WFL. Left Upper Extremity: Shoulder Flexion WFL. Shoulder abduction WFL. Elbow flexion WFL. Wrist flexion WFL. Functional opening and closing of hand WFL. Right Lower Extremity: Hip flexion lacks the last 25% of AROM. Hip abduction lacks the last 25% of AROM. Knee flexion up to 90 degrees. Ankle dorsiflexion to neutral only. Ankle plantarflexion WFL. Left Lower Extremity: Hip flexion lacks the last 25% of AROM. Hip abduction lacks the last 25% of AROM. Knee flexion up to 90 degrees. Ankle dorsiflexion to neutral only. Ankle plantarflexion WFL. Strength: Right Upper Extremity: Shoulder flexors 4-/5. Shoulder abductors 4-/5. Elbow flexors 4-/5. Elbow extensors 4-/5. Chief Substation Operator strong. Left Upper Extremity: Shoulder flexors 4-/5. Shoulder abductors 4-/5. Elbow flexors 4-/5. Elbow extensors 4-/5. Chief Substation Operator strong. Right Lower Extremity: Hip flexors 3-/5. Hip abductors 3-/5. Knee flexors 3-/5. Knee extensors 4-/5. Ankle dorsiflexors 3-/5. Ankle plantarflexors 4-/5. Left Lower Extremity: Hip flexors 4-/5. Hip abductors 4-/5. Knee flexors 4-/5. Knee extensors 4-/5. Ankle dorsiflexors 4-/5. Ankle plantarflexors 4-/5. BED MOBILITY/TRANSFERS? Rolling L/R: independent Supine-sit: independent? Sit-supine: independent ? Sit-stand: min assist ? Stand-sit: verbal cues, contact guard ? Bed-Chair: contact guard ? Chair-bed: contact guard ? GAIT? Assistive Device: front wheeled walker ? Weight bearing: as tolerated Assist: contact guard? Distance:? 15 feet? Deviation: step to gait pattern, reduced stance phase RLE, reduced step height bilaterally R>L ? Balance: Static Sitting: good Dynamic Sitting: good Static Standing: fair Dynamic Standing: fair Special Tests: Mobility Limitations Standardized Measure [facility] AM-PAC 6 clicks Basic Mobility Inpatient Short Form: Raw Score: 18 CMS Score: 47% deficit (compared to 69% deficit on initial evaluation) Assessment: Sukhjinder was seen for 3 PT sessions over the course of 5 days. He demonstrated improvements in bed mobility and transfers, with severe limitation in tolerance to ambulation, tolerating only 15' with assistance. Did not demonstrate lucidity of though 100% of the time but is able to follow single-step commands oftentimes needing repetition of instructions, allowing for safety awareness concerns. Appropriate for transition to SNF for continued progress toward established goals. Discharge from PT services in acute care setting. Goals: Goals X1 week 1. Supine-Sit independent (met) 2. Sit-Supine independent (met) 3. Sit-Stand supervision (progressing toward) 4. Stand-Sit supervision with FWW (met) 5. Bed-Chair isupervision with FWW (progressing toward) 6. Chair-Bed supervision with FWW (progressing toward) 7. Stand by assist with gait on level surface with use of FWW for at least 75 feet without report of pain nor dyspnea (not met) 8. Fair static and dynamic standing balance/tolerance (met) PLAN OF CARE/TREATMENT PLAN: D/C from PT services in acute care setting. DISCHARGE RECOMMENDATIONS: SNF for continued progress toward goals TREATMENT CODE/TIME: none Thank you for the opportunity to participate in the care of this patient. Natalie Carbajal, PT, DPT [facility] [place], [place]
--- NOTE | 2022-08-01 12:28 | PDOC.CMDIS ---
Date of service: 08/01/22 Time of Service: 15:21 LACE Index Scoring Tool Questions: Length of Stay (in days): 4 - 6 Was the patient admitted via the E.D.?: Yes Comorbidities: Congestive Heart Failure, Chronic Pulmonary Disease and Liver or Renal Disease E.D. Visits: 1 Answers: Total Score: 13 Risk of Readmission: High Risk Care Management Discharge Plan Reason for Hospitalization: Femur Fracture, TIA Discharge Plan: Sukhjinder will discharge to [facility] for continued rehab prior to returning home. He will transport via [facility], coordinated by this investigative writer. Patient/Family Education Needs: Review discharge instructions, discuss Ask Me Three.
== END 2022-08-01 11:43 | disposition skilled nursing facility (03) | DRG 536 ==
LOC: ER 07-28 01:06 → MS 07-28 01:48
PROVIDERS: Emergency Medicine; Internal Medicine; Nurse Practitioner Acute Care; Admitting Provider Family Medicine; Emergency Provider Physician Assistant; PCP Internal Medicine; Visit Provider Family Medicine
DX: S72.141A Displaced intertrochanteric fracture of right femur, initial encounter for closed fracture (principal); N17.9 Acute kidney failure, unspecified; I13.0 Hypertensive heart and chronic kidney disease with heart failure and stage 1 through stage 4 chronic kidney disease, or unspecified chronic kidney disease; M97.01XA Periprosthetic fracture around internal prosthetic right hip joint, initial encounter; R41.82 Altered mental status, unspecified; F03.90 Unspecified dementia, unspecified severity, without behavioral disturbance, psychotic disturbance, mood disturbance, and anxiety; R29.6 Repeated falls; D64.9 Anemia, unspecified; Z51.5 Encounter for palliative care; N18.9 Chronic kidney disease, unspecified; Z96.643 Presence of artificial hip joint, bilateral; F32.A Depression, unspecified; R35.0 Frequency of micturition; H90.3 Sensorineural hearing loss, bilateral; I50.9 Heart failure, unspecified; Z96.651 Presence of right artificial knee joint; Z99.81 Dependence on supplemental oxygen; F41.9 Anxiety disorder, unspecified; W19.XXXA Unspecified fall, initial encounter
CPT/HCPCS: 36415; 36416; 70544; 70547; 71275; 73552; 76770; 80048; 80053; 80076; 82550; 82805; 82962; 85027; 87077; 87493; 93005; 93306; 96361; 96365; 97110; 97116; 97162; 97530; 99223; 99285; 70450; 70551; 73502; 73700; 81003; 81015; 82565; 83605; 83735; 83880; 84132; 84300; 84443; 84484; 85025; 87086; 87186; 93010; 99233; 99239; J0131; J3480; J3490